=== PATIENT | female | born 1990 | race Caucasian/White ===

== ENCOUNTER 2016-03-30 18:37 | Emergency (ER) | payer OTHER ==
[2016-03-30 19:03] VITALS: RESP 16
--- NOTE | 2016-03-30 19:25 | XR ---
EXAMINATION TYPE: XR hand complete LT DATE OF EXAM: 03/30/2016 7:19 PM COMPARISON: NONE HISTORY: Pain, laceration wrist TECHNIQUE: 3 views left hand FINDINGS: No acute osseous abnormality is evident. Soft tissues appear normal. No radiopaque foreign bodies are evident. IMPRESSION: 1. Normal left hand
--- NOTE | 2016-03-30 20:34 | ED ---
Wound/Laceration HPI - General Chief Complaint: Wound/Laceration Stated Complaint: wrist lac Time Seen by Provider: 03/30/16 19:05 Source: patient Mode of arrival: ambulatory - History of Present Illness Initial Comments: Patient is a 25-year-old white right-handed female presenting to the emergency department with complaints of accidental left wrist laceration. Onset of injury at 5:30 PM this afternoon. Patient states she was cutting a ziptie at home with the knife slipped. Patient is currently complaining of numbness and tingling to left hand. Patient states she is up-to-date on tetanus immunization. Associated Symptoms: loss of feeling/numbness - Related Data Home Medications Medication Instructions Recorded Confirmed Pnv with Ca,No.72/Iron/FA 1 each PO DAILY 06/01/15 07/12/15 [ Plus Tablet] Previous Rx's Medication Instructions Recorded Ibuprofen [Motrin] 600 mg PO Q6HR PRN #30 tab 07/13/15 Azithromycin [Zithromax Z-pack] 0 mg PO DIRECTED #6 tab 03/30/16 Allergies Allergy/AdvReac Type Severity Reaction Status Date / Time Penicillins Allergy lip Verified 03/30/16 19:03 swelling Sulfa (Sulfonamide Allergy Rash/Hives Verified 03/30/16 19:03 Antibiotics) Review of Systems ROS Statement: Those systems with pertinent positive or pertinent negative responses have been documented in the HPI. ROS Other: All systems not noted in ROS Statement are negative. Past Medical History Past Medical History: GERD/Reflux Additional Past Medical History / Comment(s): current sinus infection,recent blood in stools, bloating, nausea @times, change in bowel habits History of Any Multi-Drug Resistant Organisms: None Reported Past Surgical History: No Surgical Hx Reported Additional Past Surgical History / Comment(s): wisdom teeth removed Past Anesthesia/Blood Transfusion Reactions: No Reported Reaction Past Psychological History: No Psychological Hx Reported Smoking Status: Never smoker Past Alcohol Use History: Rare Past Drug Use History: None Reported - Past Family History Father History Unknown: Yes Family Medical History: Coronary Artery Disease (CAD) Additional Family Medical History / Comment(s): Heartdisease General Exam - General Exam Comments Initial Comments: GENERAL: Pt awake and alert, well-appearing, well-nourished, and in no acute distress. HEAD: Atraumatic, normocephalic. EYES: Pupils equal, round, and reactive to light, extraocular movements intact, sclera anicteric, conjunctiva are normal. ENT: Moist mucous membranes. LUNGS: Breath sounds clear to auscultation bilaterally. No wheezes, rales, or rhonchi. HEART: Heart S1, S2, no S3 or S4. Regular rate and rhythm. No murmurs, rubs or gallops. ABDOMEN: Soft, nontender, nondistended, normoactive bowel sounds. No guarding, no rebound. No masses or organomegaly appreciated. NEUROLOGICAL: Pt oriented x 3. PSYCH: Normal mood, normal affect. SKIN: Warm, dry, intact. Left Hand Wrist exam: Present: laceration (2 cm laceration to left medial wrist) Neuro motor exam: Present: wrist extension intact, thumb opposition intact, thumb IP flexion intact, thumb adduction intact, fingers 2-5 abduction intact Neurosensory exam: Present: 2-point discrimination, radial nerve intact, ulnar nerve intact, median nerve intact Vascular: Present: normal capillary refill, radial pulse, brachial pulse, ulnar pulse. Absent: vascular compromise (When examining wound, patient started bleeding with possibly small arterial bleed. Hemostasis obtained with manual pressure. Dr. Osman at bedside to examine wound and agrees to closure of wound with sutures at this time with possible follow-up in outpatient setting with vascular surgery.), Pallo, pulse deficit radial art, pulse deficit ulnar art, pulse deficit brachial art Course Vital Signs 03/30/16 03/30/16 19:00 20:35 Temperature 98.8 F 98.4 F Pulse Rate 80 72 Respiratory 16 16 Rate Blood Pressure 147/91 124/72 O2 Sat by Pulse 97 99 Oximetry Procedures - Laceration Laceration #1 Consent Obtained: verbal consent Indication: laceration Site: other (Left medial wrist) Size (cm): 2 Description: linear, clean Depth: simple, single layer Anesthetic Used: lidocaine 1% Anesthesia Technique: local infiltration Amount (mls): 2 Pre-repair: wound explored, irrigated extensively, deep structures intact Type of Sutures: nylon Size of Sutures: 5-0 Number of Sutures: 3 Technique: simple, interrupted Patient Tolerated Procedure: well, no complications Medical Decision Making - Medical Decision Making Laceration to left medial wrist with possible small arterial laceration. Laceration repaired. Patient tolerated procedure well. Patient instructed to follow-up with vascular surgery as directed. Patient agrees with treatment plan. Discharge instructions and return parameters reviewed. - Radiology Data Radiology results: report reviewed Left hand x-ray: No acute osseous abnormality is evident. Soft tissues appear normal. No radiopaque foreign bodies evident. Disposition Clinical Impression: Laceration of wrist, left, complicated Disposition: HOME SELF-CARE Condition: Good Instructions: Care For Your Stitches (ED), Laceration (ED) Additional Instructions: Keep wound dry for 24 hours, generally clean the edges of the wound daily with a cotton swab saturated with proximal side to move crusts, return immediately if signs of infection such as redness or red streaks, increased pain, swelling, or fevers. Finish prescribed antibiotics. Follow-up with vascular surgery as needed. Please return to the emergency department with increased numbness, swelling, pain, or other worsening symptoms. Prescriptions: Azithromycin [Zithromax Z-pack] 0 mg PO DIRECTED #6 tab Referrals: None,Stated [Primary Care Provider] - 1-2 days Ruddy Dykes MD [STAFF PHYSICIAN] - 1-2 days Time of Disposition: 20:33
[2016-03-30 20:35] VITALS: BP 124/72; PULSE 72; TEMP 98.4
[2016-03-30] MEDS ORDERED: IBUPROFEN 800 MG TAB PO STA (20:35)
== END 2016-03-30 20:42 | disposition home or self-care (01) ==
LOC: EC 18:37
DX: S61.512A Laceration without foreign body of left wrist, initial encounter (principal); Z88.0 Allergy status to penicillin; Z88.2 Allergy status to sulfonamides; W26.0XXA Contact with knife, initial encounter; Y93.89 Activity, other specified; Y92.009 Unspecified place in unspecified non-institutional (private) residence as the place of occurrence of the external cause
CPT/HCPCS: 12001; 99283

== ENCOUNTER → 2016-06-17 | Outpatient (CLI) | payer OTHER | END | disposition home or self-care (01) | LOC: LABWHC1 10:49 | PROVIDERS: ATTEND Obstetrics & Gynecology | DX: Z34.80 Encounter for supervision of other normal pregnancy, unspecified trimester (principal); Z3A.00 Weeks of gestation of pregnancy not specified | CPT/HCPCS: 36415; 84702 ==

== ENCOUNTER 2016-06-18 06:09 | Emergency (ER) | payer OTHER ==
[2016-06-18 07:18] LABS: Basophils # (A) 0.1 k/uL (0-0.2); Basophils % (A) 1 %; CHCM 34.2; Eosinophils # (A) 0.1 k/uL (0-0.7); Eosinophils % (A) 1 %; HDW 2.63; HGB 13.6 gm/dL (11.4-16.0); Luc # (Auto) 0.11; Luc % (Auto) 1; Lymphocytes # (A) 1.5 k/uL (1.0-4.8); Lymphocytes % (A) 18 %; MCH 30.2 pg (25.0-35.0); MCHC 33.2 g/dL (31.0-37.0); MCV 90.9 fL (80.0-100.0); Mean Platelet Volume 7.1; Monocytes # (A) 0.4 k/uL (0-1.0); Monocytes % (A) 5 %; Neutrophils # (A) 6.1 k/uL (1.3-7.7); Neutrophils % (A) 74 %; RBC 4.51 m/uL (3.80-5.40); WBC 8.2 k/uL (3.8-10.6); WBC (Perox) 8.18
[2016-06-18 07:28] LABS: ALT 29 U/L (9-52); AST 19 U/L (14-36); Alkaline Phosphatase 55 U/L (38-126); Anion Gap 13 mmol/L; Blood Urea Nitrogen 12 mg/dL (7-17); Calcium 8.7 mg/dL (8.4-10.2); Carbon Dioxide 22 mmol/L (22-30); Chloride 107 mmol/L (98-107); Glucose 94 mg/dL (74-99); Non-African American GFR(MDRD) >60 (>60 ml/min/1.73 sqM); Potassium 4.1 mmol/L (3.5-5.1); Sodium 142 mmol/L (137-145); Total Bilirubin 0.5 mg/dL (0.2-1.3); Total Protein 7.3 g/dL (6.3-8.2)
[2016-06-18 07:38] VITALS: RESP 18
[2016-06-18 07:44] LABS: HCG,Quantitative Serum 995.3 mIU/mL
--- NOTE | 2016-06-18 07:50 | ED ---
General Adult HPI - General Chief complaint: Vaginal Bleeding Stated complaint: bleeding-7 weeks preg Time Seen by Provider: 06/18/16 07:00 Source: patient, RN notes reviewed Mode of arrival: ambulatory Limitations: no limitations - History of Present Illness Initial comments: This is a 25-year-old female presents to the emergency department stating that she is 7 weeks . Patient states she came in today because she's had vaginal bleeding for the last day. Patient states it got heavier today and she' s had some cramping. Patient states she has not had an ultrasound at this point. Patient denies any significant abdominal pain. Patient denies being lightheaded or dizzy. Patient states she has been once before had one child. Patient did have blood work done yesterday for a beta hCG. Patient denies any recent fever chills patient denies any vomiting or diarrhea. - Related Data Home Medications Medication Instructions Recorded Confirmed Pnv with Ca,No.72/Iron/FA 1 tab PO DAILY 06/01/15 06/18/16 [ Plus Tablet] Allergies Allergy/AdvReac Type Severity Reaction Status Date / Time Penicillins Allergy lip Verified 06/18/16 07:20 swelling Sulfa (Sulfonamide Allergy Rash/Hives Verified 06/18/16 07:20 Antibiotics) Review of Systems ROS Statement: Those systems with pertinent positive or pertinent negative responses have been documented in the HPI. ROS Other: All systems not noted in ROS Statement are negative. Past Medical History Past Medical History: GERD/Reflux Additional Past Medical History / Comment(s): current sinus infection,recent blood in stools, bloating, nausea @times, change in bowel habits History of Any Multi-Drug Resistant Organisms: None Reported Past Surgical History: No Surgical Hx Reported Additional Past Surgical History / Comment(s): wisdom teeth removed Past Anesthesia/Blood Transfusion Reactions: No Reported Reaction Past Psychological History: No Psychological Hx Reported Smoking Status: Never smoker Past Alcohol Use History: Rare Past Drug Use History: None Reported - Past Family History Father History Unknown: Yes Family Medical History: Coronary Artery Disease (CAD) Additional Family Medical History / Comment(s): Heartdisease General Exam - General Exam Comments Initial Comments: GENERAL: Patient is well-developed and well-nourished. Patient is nontoxic and well- hydrated and is in mild distress. ENT: Neck is soft and supple. No significant lymphadenopathy is noted. Oropharynx is clear. Moist mucous membranes. EYES: The sclera were anicteric and conjunctiva were pink and moist. PULMONARY: Unlabored respirations. Good breath sounds bilaterally. No audible rales rhonchi or wheezing was noted. CARDIOVASCULAR: There is a regular rate and rhythm without any murmurs gallops or rubs. ABDOMEN: Soft and nontender with normal bowel sounds. No palpable organomegaly was noted. There is no palpable pulsatile mass. SKIN: Skin is clear with no lesions or rashes and otherwise unremarkable. NEUROLOGIC: Patient is alert and oriented x3. Cranial nerves II through XII are grossly intact MUSCULOSKELETAL: Normal extremities with adequate strength and full range of motion. LYMPHATICS: No significant lymphadenopathy is noted PSYCHIATRIC: Normal psychiatric evaluation. Limitations: no limitations Course Vital Signs 06/18/16 06:15 Temperature 98.4 F Pulse Rate 97 Respiratory 18 Rate Blood Pressure 130/100 O2 Sat by Pulse 97 Oximetry Medical Decision Making - Medical Decision Making I did a pelvic exam was bleeding in the vaginal vault and there was some clots mixed in with a blood. The cervical os did appear to be closed. Ultrasound did not show an IUP and the beta hCG decline since yesterday. - Lab Data Result diagrams: 06/18/16 06:43 06/18/16 06:43 Lab Results 06/18/16 06/18/16 06/18/16 Range/Units 06:43 06:43 06:43 WBC 8.2 (3.8-10.6) k/uL RBC 4.51 (3.80-5.40) m/uL Hgb 13.6 (11.4-16.0) gm/dL Hct 41.0 (34.0-46.0) % MCV 90.9 (80.0-100.0) fL MCH 30.2 (25.0-35.0) pg MCHC 33.2 (31.0-37.0) g/dL RDW 13.0 (11.5-15.5) % Plt Count 230 (150-450) k/uL Neutrophils % 74 % Lymphocytes % 18 % Monocytes % 5 % Eosinophils % 1 % Basophils % 1 % Neutrophils # 6.1 (1.3-7.7) k/uL Lymphocytes # 1.5 (1.0-4.8) k/uL Monocytes # 0.4 (0-1.0) k/uL Eosinophils # 0.1 (0-0.7) k/uL Basophils # 0.1 (0-0.2) k/uL Sodium 142 (137-145) mmol/L Potassium 4.1 (3.5-5.1) mmol/L Chloride 107 (98-107) mmol/L Carbon Dioxide 22 (22-30) mmol/L Anion Gap 13 mmol/L BUN 12 (7-17) mg/dL Creatinine 0.52 (0.52-1.04) mg/dL Est GFR (MDRD) Af Amer >60 (>60 ml/min/1.73 sqM) Est GFR (MDRD) Non-Af >60 (>60 ml/min/1.73 sqM) Glucose 94 (74-99) mg/dL Calcium 8.7 (8.4-10.2) mg/dL Total Bilirubin 0.5 (0.2-1.3) mg/dL AST 19 (14-36) U/L ALT 29 (9-52) U/L Alkaline Phosphatase 55 (38-126) U/L Total Protein 7.3 (6.3-8.2) g/dL Albumin 4.0 (3.5-5.0) g/dL HCG, Quant 995.3 mIU/mL Blood Type B Positive Blood Type Recheck No Antibody Screen NEGATIVE Spec Expiration Date 06/21/2016 - 2343 Disposition Clinical Impression: Spontaneous miscarriage Disposition: HOME SELF-CARE Condition: Good Instructions: Miscarriage (ED) Additional Instructions: Patient should follow-up with her [employer]. Referrals: Tre Mccray MD [Primary Care Provider] - 1-2 days Time of Disposition: 09:57
--- NOTE | 2016-06-18 09:49 | US ---
EXAMINATION TYPE: US OB <=14 wks transvag DATE OF EXAM: 06/18/2016 9:12 AM COMPARISON: NONE CLINICAL HISTORY: Pain. spotting x 1 day, pt states passing clots, cramping EXAM PERFORMED: Transvaginal (TV) and Transabdominal (TA) EXAM MEASUREMENTS: GESTATIONAL AGE / DATING Dates by LMP: (7 weeks/5 days) EDC: 01/30/2017 Dates by Current Scan for: No IUP seen at this time MATERNAL ANATOMY Uterus: 7.9 x 5.4 x 5.0 cm Right Ovary: 3.3 x 2.0 x 2.2 cm Left Ovary: 3.1 x 1.8 x 1.6 cm Post CDS / Adnexa: free fluid seen in posterior cul de sac and adjacent to RO Presence of corpus luteal cyst: Echogenic lesion with ring of fire seen =1.2 x 1.3 x 1.4 cm GESTATION / SURVEY CRL: No IUP seen MSD: No gestational sac seen IUP: No IUP seen at this time Date of LMP: 05/05/2016 Beta HcG (if available): not available No IUP seen at this time. Anechoic lesion seen in cervical canal = 0.8 x 0.9 x 0.3 cm. Anechoic les ion seen in mid/right uterine fundus = 0.8 x 0.7 x 0.6 cm. Grayscale, color Doppler imaging performed, endovaginal scanning performed for better evaluation of t he uterus. Color flow noted to the ovaries. Endometrial stripe thickness 2.5 cm on endovaginal vagina l scanning. Fluid is noted in the pelvis. IMPRESSION: Endometrial stripe thickness is abnormally thickened, correlate for appropriate phase of patient's fo llicular cycle. Findings may represent spontaneous , correlate. Indeterminate cystic focus wi thin the uterus is indeterminate. Consider follow-up.
[2016-06-18 10:05] VITALS: BP 134/75; PULSE 85; TEMP 98.2
== END 2016-06-18 10:05 | disposition home or self-care (01) ==
LOC: EC 06:09
DX: O03.9 Complete or unspecified spontaneous abortion without complication (principal); Z3A.01 Less than 8 weeks gestation of pregnancy; Z79.899 Other long term (current) drug therapy; Z88.0 Allergy status to penicillin; Z88.2 Allergy status to sulfonamides
CPT/HCPCS: 36415; 76801; 76817; 80053; 84702; 85025; 86850; 86900; 86901; 99284

== ENCOUNTER → 2016-06-24 | Outpatient (CLI) | payer OTHER | LOC: LABWHC1 15:01 | PROVIDERS: ATTEND Obstetrics & Gynecology | DX: Z34.90 Encounter for supervision of normal pregnancy, unspecified, unspecified trimester (principal); Z3A.00 Weeks of gestation of pregnancy not specified | CPT/HCPCS: 36415; 84702 ==

== ENCOUNTER → 2016-07-01 | Outpatient (CLI) | payer OTHER | LOC: LABWHC1 16:15 | PROVIDERS: ATTEND Obstetrics & Gynecology | DX: Z34.90 Encounter for supervision of normal pregnancy, unspecified, unspecified trimester (principal); Z3A.00 Weeks of gestation of pregnancy not specified | CPT/HCPCS: 36415; 84702 ==

== ENCOUNTER → 2016-11-27 | Outpatient (CLI) | payer OTHER ==
[2016-11-27 14:44] LABS: CH 30.2; CHCM 34.8; HCT 37.2 % (34.0-46.0); HDW 2.75; HGB 12.9 gm/dL (11.4-16.0); MCH 30.2 pg (25.0-35.0); MCHC 34.7 g/dL (31.0-37.0); MCV 87.2 fL (80.0-100.0); RBC 4.26 m/uL (3.80-5.40); RDW 12.4 % (11.5-15.5); WBC 8.6 k/uL (3.8-10.6)
[2016-11-27 14:52] LABS: Glucose 83 mg/dL (74-99); Non-African American GFR(MDRD) >60 (>60 ml/min/1.73 sqM)
[2016-11-27 15:23] LABS: Hepatitis B Surface Ag Index 0.06
[2016-11-27 20:02] LABS: Treponemal Ab Non-Reactive (Non-Reactive)
[2016-11-28 04:15] LABS: Toxoplasma Antibody (IgG) <3.0 IU/mL (<7.2)
== END | disposition home or self-care (01) ==
LOC: LABWHC1 14:11
PROVIDERS: ATTEND Obstetrics & Gynecology
DX: O26.811 Pregnancy related exhaustion and fatigue, first trimester (principal); Z3A.00 Weeks of gestation of pregnancy not specified
CPT/HCPCS: 36415; 82565; 82947; 85027; 86762; 86777; 86778; 86780; 86850; 86900; 86901; 87340; 87390

== ENCOUNTER 2017-05-01 10:18 | Outpatient (CLI) | payer OTHER ==
[2017-05-01 11:01] VITALS: BP 121/75; PULSE 90; RESP 18; TEMP 98
--- NOTE | 2017-05-05 18:33 | P.MSEPDOC ---
Presenting Problems - Arrival Data Date of Arrival on Unit: 05/01/17 Time of Arrival on Unit: 10:20 Mode of Transport: Ambulatory - Complaint OB-Reason for Admission/Chief Complaint: Other Comment: r/o pih. came in with headache-" fuzziness of head" Medical History - Information : 3 Para: 1 Term: 1 : 0 Abortions: Spontaneous or Elective: 1 Number of Living Children: 1 - Gestational Age Gestational Age by WES (wks/days): 29 Weeks and 5 Days - History Complications: GDM Comment: diet controlled Review of Systems - Review of Systems Constitutional: No problems Breast: No problems ENT: No problems Cardiovascular: No problems Respiratory: No problems Gastrointestinal: No problems Genitourinary: No problems Musculoskeletal: No problems Neurological: No problems Skin: No problems Vital Signs - Temperature Temperature: 98.0 F Temperature Source: Oral - Pulse Right Brachial Pulse Rate: 90 Pulse Assessment Method: Automatic Cuff - Respirations Respiratory Rate: 18 Oxygen Delivery Method: Room Air O2 Sat by Pulse Oximetry: 98 - Blood Pressure Right Arm Blood Pressure: 121/75 Blood Pressure Mean: 90 Blood Pressure Source: Automatic Cuff Medical Screen Scoring (Pre) - Cervical Exam Dilation: Exam Deferred Effacement: Exam Deferred Membranes: Intact - Uterine Contractions Frequency: N/A Duration: N/A Intensity: N/A - Maternal Vital Signs Maternal Temperature: N/A Maternal Blood Pressure: N/A Signs of Preeclampsia: Headache = 1 Maternal Respirations: N/A - Pain Assessment Pain Location and Character: Head Pain Scale Used: Numeric (1 - 10) Pain Intensity: 7 Pain Description: *Acute Pain Frequency: Intermittent Pain Duration: 2 Pain Duration Units: Hours Pain Behavior: None Exhibited, Vocalization Pain Aggravating Factors: None Non-Pharmacological Interventions: Darkened Room - Maternal Trauma Maternal Trauma: N/A - Assessment Baseline FHR: 140 Heart Rate - NICHD Category: Category I (Normal) = 0 NST: Reactive Position: N/A Station: N/A - Total Score Total Score (Pre): 1 - Level of Risk Level of Risk: Low (0-5) Physician Notification (Pre) - Physician Notified Physician/Practitioner Notifed:: yes Spoke With: tiffanie Jackson Order Received: Yes - Notification Comment Comment: discharge home Medical Screen Scoring (Post) - Cervical Exam Dilation: Exam Deferred Effacement: Exam Deferred Membranes: Intact - Uterine Contractions Frequency: N/A Duration: N/A Intensity: N/A - Maternal Vital Signs Maternal Temperature: N/A Signs of Preeclampsia: Headache = 1 Maternal Respirations: N/A - Pain Assessment Pain Scale Used: Numeric (1 - 10) Pain Intensity: 5 Pain Description: *Acute - Maternal Trauma Maternal Trauma: N/A - Assessment Heart Rate: 140 Heart Rate - NICHD Category: Category I (Normal) = 0 Position: N/A Station: N/A - Total Score Total Score (Post): 1 - Post Treatment Level of Risk Post Treatment Level of Risk: Low (0-5) Physician Notification (Post) - Physician Notified Physician Notified Date: 05/01/17 Physician Notified Time: 11:40 Physician/Practitioner Notified:: tiffanie Jackson Order Received: Yes - Notification Comment Comment: discharge home. to keep sched appt on 05/13 Disposition - Disposition OB Disposition: Discharge to home Discharge Date: 05/01/17 Discharge Time: 11:40 I agree with the RN Medical Screening Exam: Yes Risk & Benefit of care provided described in d/c instruction: Yes Diagnosis: DIZZINESS AND GIDDINESS
== END 2017-05-01 11:45 | disposition home or self-care (01) ==
LOC: FBPOP 10:18
PROVIDERS: ATTEND Obstetrics & Gynecology
DX: O99.89 Other specified diseases and conditions complicating pregnancy, childbirth and the puerperium (principal); R42 Dizziness and giddiness; Z3A.29 29 weeks gestation of pregnancy
CPT/HCPCS: 59025; 99213

== ENCOUNTER 2017-05-19 15:25 | Outpatient (CLI) | payer OTHER ==
[2017-05-19] MEDS ORDERED: LACTATED RINGERS 1,000 ML IV SCH (16:00)
[2017-05-19 16:14] LABS: Appearance,Urine Clear (Clear); Bilirubin,Urine Negative (Negative); Blood,Urine Negative (Negative); Color,Urine Yellow; Glucose,Urine (UA) Negative (Negative); Ketones,Urine Negative (Negative); Leukocyte Esterase,Urine Small (Negative); Mucus,Urine Occasional /hpf; Nitrite,Urine Negative (Negative); Protein,Urine Trace (Negative); RBC,Urine <1 /hpf (0-5); Specific Gravity,Urine 1.026 (1.001-1.035); Squamous Epithelial Cell,Urine 2 /hpf (0-4); WBC,Urine 3 /hpf (0-5)
[2017-05-19 17:55] VITALS: BP 119/74; PULSE 116; RESP 18; TEMP 98.4
--- NOTE | 2017-05-21 17:10 | P.MSEPDOC ---
Presenting Problems - Arrival Data Date of Arrival on Unit: 05/19/17 Time of Arrival on Unit: 15:25 Mode of Transport: Ambulatory - Complaint OB-Reason for Admission/Chief Complaint: Rule Out SROM Comment: rule out SROM from 1999 last night Medical History - Information : 3 Para: 1 Term: 1 : 0 Abortions: Spontaneous or Elective: 1 Number of Living Children: 1 - Gestational Age Gestational Age by WES (wks/days): 32 Weeks and 2 Days - History Complications: GDM Review of Systems - Review of Systems Constitutional: No problems Breast: No problems ENT: No problems Cardiovascular: No problems Respiratory: No problems Gastrointestinal: No problems Genitourinary: No problems Musculoskeletal: No problems Neurological: No problems Skin: No problems Vital Signs - Temperature Temperature: 98.4 F Temperature Source: Temporal Artery Scan - Pulse Right Pulse Oximetery Pulse Rate: 116 Pulse Assessment Method: Pulse Oximetry - Respirations Respiratory Rate: 18 Oxygen Delivery Method: Room Air O2 Sat by Pulse Oximetry: 97 - Blood Pressure Right Arm Blood Pressure: 119/74 Blood Pressure Mean: 89 Blood Pressure Source: Automatic Cuff Medical Screen Scoring (Pre) - Cervical Exam Dilation: 1-3 cm = 1 Membranes: Intact - Uterine Contractions Frequency: < 36 weeks = 6 Duration: N/A Intensity: N/A - Maternal Vital Signs Maternal Temperature: N/A Maternal Blood Pressure: N/A Signs of Preeclampsia: N/A Maternal Respirations: N/A - Pain Assessment Pain Location and Character: Lower, Abdomen Pain Scale Used: Numeric (1 - 10) Pain Intensity: 3 Pain Management Goal: 3 Pain Description: Pressure Pain Radiation Location: none Pain Frequency: Constant Pain Duration: 1 Pain Duration Units: Days Pain Behavior: Vocalization Effects of Pain: none Pain Aggravating Factors: None - Maternal Trauma Maternal Trauma: N/A - Assessment Baseline FHR: 150 Heart Rate - NICHD Category: Category I (Normal) = 0 NST: Reactive Position: N/A Station: N/A - Total Score Total Score (Pre): 7 - Level of Risk Level of Risk: Medium (6-9) Physician Notification (Pre) - Physician Notified Physician Notified Date: 05/19/17 Physician Notified Time: 15:54 Physician/Practitioner Notifed:: Sarai Spoke With: Telephone New Order Received: Yes (IV hydration, send UA and monitor for next hour) Medical Screen Scoring (Post) - Cervical Exam Dilation: 1-3 cm = 1 Membranes: Intact - Uterine Contractions Frequency: > 5 minutes apart = 1 Duration: > 40 seconds = 2 Intensity: N/A - Maternal Vital Signs Maternal Temperature: N/A Maternal Blood Pressure: N/A Signs of Preeclampsia: N/A Maternal Respirations: N/A - Maternal Trauma Maternal Trauma: N/A - Assessment Heart Rate: 145 Heart Rate - NICHD Category: Category I (Normal) = 0 NST: Reactive Position: N/A Station: N/A - Total Score Total Score (Post): 4 - Post Treatment Level of Risk Post Treatment Level of Risk: Low (0-5) Physician Notification (Post) - Physician Notified Physician Notified Date: 05/19/17 Physician Notified Time: 17:20 Physician/Practitioner Notified:: Dr Moon Spoke With: Sarai New Order Received: Yes (discharge home) - Notification Comment Comment: pt was here for rule out ROM, amnisure negative, no leaking noted, found to be hugh and cervix dilated to 2.5, 50%, -3. IV hydration spaced out contractions, cervix the same after >1hour. Pt discharged home Disposition - Disposition OB Disposition: Discharge to home Discharge Date: 05/19/17 Discharge Time: 17:40 I agree with the RN Medical Screening Exam: Yes Risk & Benefit of care provided described in d/c instruction: Yes Diagnosis: RELATED CONDITIONS, UNSPECIFIED, THIRD TRIMESTER (r/o SROM)
== END 2017-05-19 17:40 | disposition home or self-care (01) ==
LOC: FBPOP 15:25
PROVIDERS: ATTEND Obstetrics & Gynecology
DX: O26.93 Pregnancy related conditions, unspecified, third trimester (principal); Z3A.32 32 weeks gestation of pregnancy
CPT/HCPCS: 59025; 81001; 84112; 96360; 99214

== ENCOUNTER 2017-06-27 08:12 | Inpatient (IN) | payer OTHER ==
[2017-06-27 09:20] VITALS: BMI 65.7
[2017-06-27] MEDS ORDERED: METHYLERGONOVINE 0.2 MG/ML 1 ML AMP IM PRN (09:24)
[2017-06-27] MEDS ORDERED: CARBOPROST TROMETHAMINE 250 MCG/ML 1 ML AMP IM PRN (09:24)
[2017-06-27] MEDS ORDERED: TERBUTALINE 1 MG/ML VIAL SQ PRN (09:24)
[2017-06-27] MEDS ORDERED: LIDOCAINE 1% (PF) 10 MG/ML (30 ML SDV) SQ PRN (09:24)
[2017-06-27] MEDS ORDERED: OXYTOCIN 10 UNIT/ML 1 ML VIAL IM PRN (09:24)
[2017-06-27 09:30] LABS: Glucose,Whole Blood 88 mg/dL (75-99)
[2017-06-27 09:53] LABS: Basophils % (A) 0 %; Eosinophils # (A) 0.1 k/uL (0-0.7); Eosinophils % (A) 1 %; HCT 36.3 % (34.0-46.0); HGB 12.5 gm/dL (11.4-16.0); Lymphocytes # (A) 1.3 k/uL (1.0-4.8); Lymphocytes % (A) 19 %; MCH 30.1 pg (25.0-35.0); MCHC 34.5 g/dL (31.0-37.0); MCV 87.1 fL (80.0-100.0); Mean Platelet Volume 7.3; Monocytes # (A) 0.3 k/uL (0-1.0); Monocytes % (A) 5 %; Neutrophils # (A) 4.9 k/uL (1.3-7.7); Neutrophils % (A) 72 %; Platelet Count 245 k/uL (150-450); RBC 4.16 m/uL (3.80-5.40); WBC 6.8 k/uL (3.8-10.6)
[2017-06-27 10:21] LABS: Glucose,Whole Blood 82 mg/dL (75-99)
[2017-06-27 11:55] LABS: Glucose,Whole Blood 74 mg/dL (75-99)
[2017-06-27] MEDS ORDERED: BUPIVACAINE (PF) 0.25% 30 ML VIAL ONE (12:10)
[2017-06-27] MEDS ORDERED: fentaNYL (PF) 50 MCG/ML 5 ML AMP ONE (12:10)
[2017-06-27] MEDS ORDERED: SODIUM CHLORIDE 0.9% 100 ML BAG ONE (12:10)
[2017-06-27] MEDS: LACTATED RINGERS 1,000 ML IV SCH ×2 (12:18→12:44)
[2017-06-27] MEDS: OXYTOCIN 20 UNITS/1000 ML NS 1,000 ML IV SCH (12:45)
--- NOTE | 2017-06-27 13:01 | P.HPOB ---
History of Present Illness H&P Date: 06/27/17 Chief Complaint: Labor 26-year-old presents at 37 weeks and 6 days in active labor. Her cervix is 4 cm dilated, 80% effaced, and -2 station. She is hugh every 2-3 minutes. heart tones 130-135 with moderate variability and reactive. She is gestational diabetic diet controlled, her blood sugar today is 88. Review of Systems All systems: negative Constitutional: Denies chills, Denies fever Eyes: denies blurred vision, denies pain Ears, nose, mouth and throat: Denies headache, Denies sore throat Cardiovascular: Denies chest pain, Denies shortness of breath Respiratory: Denies cough Gastrointestinal: Denies abdominal pain, Denies diarrhea, Denies nausea, Denies vomiting Genitourinary: Denies dysuria, Denies hematuria Musculoskeletal: Denies myalgias Integumentary: Denies pruritus, Denies rash Neurological: Denies numbness, Denies weakness Psychiatric: Denies anxiety, Denies depression Endocrine: Denies fatigue, Denies weight change Past Medical History Past Medical History: GERD/Reflux History of Any Multi-Drug Resistant Organisms: None Reported Past Surgical History: No Surgical Hx Reported Additional Past Surgical History / Comment(s): wisdom teeth removed Past Anesthesia/Blood Transfusion Reactions: No Reported Reaction Past Psychological History: No Psychological Hx Reported Smoking Status: Never smoker Past Alcohol Use History: Rare Past Drug Use History: None Reported - Past Family History Father History Unknown: Yes Family Medical History: Coronary Artery Disease (CAD) Additional Family Medical History / Comment(s): Heartdisease Medications and Allergies Home Medications Medication Instructions Recorded Confirmed Type Pnv,Calcium 72/Iron/Folic Acid 1 tab PO DAILY 05/31/06/27/17 History [ Plus Tablet] Acetaminophen [Tylenol Extra 500 mg PO DAILY PRN 05/01/17 06/27/17 History Strength] Allergies Allergy/AdvReac Type Severity Reaction Status Date / Time Penicillins Allergy lip Verified 06/27/17 08:25 swelling Sulfa (Sulfonamide Allergy Rash/Hives Verified 06/27/17 08:25 Antibiotics) Exam Osteopathic Statement: *. No significant issues noted on an osteopathic structural exam other than those noted in the History and Physical/Consult. - Vital Signs Vital signs: Vital Signs Temp Pulse Resp BP 06/27/17 09:14 98.3 F 121 H 16 115/77 06/27/17 08:26 98.3 F 121 H 16 115/77 Intake and Output 06/26/17 06/27/17 06/27/17 22:59 06:59 14:59 Other: Weight 163 kg Heart: Regular rate and rhythm Lungs: Clear to auscultation bilaterally Abdomen: Soft, nontender Extremities: Negative Homans sign Results Result Diagrams: 06/27/17 09:08 Abnormal Lab Results - Last 24 Hours (Table) 06/27/17 Range/Units 11:34 POC Glucose (mg/dL) 74 L (75-99) mg/dL Assessment and Plan (1) Gestational diabetes mellitus, class A1 Current Visit: Yes Status: Acute Code(s): O24.410 - GESTATIONAL DIABETES MELLITUS IN , DIET CONTROLLED SNOMED Code(s): 08005425 (2) Normal labor Current Visit: Yes Status: Acute Code(s): O80 - ENCOUNTER FOR FULL-TERM UNCOMPLICATED DELIVERY; Z37.9 - OUTCOME OF DELIVERY, UNSPECIFIED SNOMED Code(s ): 42996649 Plan: 1. Expectant management 2. Will monitor blood sugars 3. Anticipate normal vaginal delivery
[2017-06-27 15:10] LABS: Glucose,Whole Blood 72 mg/dL (75-99)
[2017-06-27] MEDS ORDERED: SIMETHICONE 80 MG CHEWABLE PO PRN (18:42)
[2017-06-27] MEDS ORDERED: HYDROCORTISONE 2.5% RECTAL CREAM 30 GM TUBE RECTAL PRN (18:42)
[2017-06-27] MEDS ORDERED: WITCH HAZEL 1 EACH MED..PAD TOPICAL PRN (18:42)
[2017-06-27] MEDS ORDERED: diphenhydrAMINE 25 MG CAP PO PRN (18:42)
[2017-06-27] MEDS ORDERED: diphenhydrAMINE 50 MG/ML 1 ML VIAL IVP PRN ×2 (18:42)
[2017-06-27] MEDS ORDERED: diphenhydrAMINE 50 MG CAP PO PRN (18:42)
[2017-06-27] MEDS ORDERED: LANOLIN CREAM 5 GM TUBE TOPICAL PRN (18:42)
[2017-06-27] MEDS ORDERED: ZOLPIDEM 5 MG TAB PO PRN (18:42)
[2017-06-27] MEDS ORDERED: BENZOCAINE/MENTHOL SPRAY 1 GM/SPRAY AEROSOL TOPICAL PRN (18:42)
[2017-06-27] MEDS ORDERED: ACETAMINOPHEN TAB 325 MG TAB PO PRN (18:42)
[2017-06-27] MEDS: SENNOSIDES-DOCUSATE SODIUM 1 EACH TAB PO SCH (19:47)
[2017-06-27] MEDS: IBUPROFEN 600 MG TAB PO PRN (21:02)
[2017-06-28] MEDS: OXYTOCIN 20 UNITS/1000 ML NS 1,000 ML IV SCH (00:50)
[2017-06-28] MEDS: IBUPROFEN 600 MG TAB PO PRN ×2 (04:41→09:12)
[2017-06-28] MEDS: SENNOSIDES-DOCUSATE SODIUM 1 EACH TAB PO SCH (09:11)
--- NOTE | 2017-06-28 10:49 | P.PROBDLV ---
Vaginal Delivery Note - . Vaginal Delivery Note: 26-year-old presented at 37 weeks and 6 days in active labor. Her cervix was 4/2 cm dilated, 80% effaced, -2 station. She was hugh every 2-3 minutes. heart tones 130-135 with moderate variability and reactive. Amniotomy was performed at 10:50 AM and clear fluid noted. When she was uncomfortable she did get an epidural. Her contractions spaced out to about every 6 minutes and Pitocin augmentation was started. Her cervix was completely dilated at 1625. She pushed, and delivered a viable female over intact perineum under epidural anesthesia at 1638. Head delivered OA, anterior shoulder delivered gentle downward traction followed by posterior shoulder and rest of body. Nose and mouth bulb suctioned, cord clamped and cut , infant placed on mother's abdomen. Apgars 9, 9, weight 7 lbs. 2 oz. Placenta delivered spontaneously, intact with three-vessel cord at 1639. Vagina , cervix, and perineum were inspected. No lacerations noted. Estimated blood loss 150 mL. Mother and baby in stable condition.
[2017-06-28 12:19] VITALS: RESP 16
[2017-06-28 17:21] VITALS: BP 119/70; PULSE 99; TEMP 98
--- NOTE | 2017-06-29 07:49 | P.MSEPDOC ---
Presenting Problems - Arrival Data Date of Arrival on Unit: 06/27/17 Time of Arrival on Unit: 08:12 Mode of Transport: Ambulatory - Complaint OB-Reason for Admission/Chief Complaint: Possible Onset of Labor Medical History - Information : 3 Para: 1 Term: 1 : 0 Abortions: Spontaneous or Elective: 1 Number of Living Children: 1 - Gestational Age Gestational Age by WES (wks/days): 37 Weeks and 6 Days - History Complications: GDM Review of Systems - Review of Systems Constitutional: No problems Breast: No problems ENT: No problems Cardiovascular: No problems Respiratory: No problems Gastrointestinal: No problems Genitourinary: No problems Musculoskeletal: No problems Neurological: No problems Skin: No problems Vital Signs - Temperature Temperature: 98 F Temperature Source: Oral - Pulse Right Brachial Pulse Rate: 99 Pulse Assessment Method: Automatic Cuff - Respirations Respiratory Rate: 16 Oxygen Delivery Method: Room Air - Blood Pressure Right Arm Blood Pressure: 119/70 Blood Pressure Mean: 86 Blood Pressure Source: Automatic Cuff Medical Screen Scoring (Pre) - Cervical Exam Dilation: 4-7 cm = 2 Membranes: Intact - Uterine Contractions Duration: > 40 seconds = 2 Intensity: N/A - Maternal Vital Signs Maternal Temperature: N/A Maternal Blood Pressure: N/A Signs of Preeclampsia: N/A Maternal Respirations: N/A - Pain Assessment Pain Location and Character: Back, Abdomen Pain Scale Used: Numeric (1 - 10) Pain Intensity: 7 Pain Management Goal: 10 Pain Description: *Acute Pain Frequency: Intermittent Pain Duration Units: Hours Pain Behavior: Vocalization - Maternal Trauma Maternal Trauma: N/A - Assessment Baseline FHR: 150 Heart Rate - NICHD Category: Category I (Normal) = 0 NST: Reactive Position: N/A Station: N/A - Total Score Total Score (Pre): 4 - Level of Risk Level of Risk: Low (0-5) Physician Notification (Pre) - Physician Notified Physician Notified Date: 06/27/17 Physician Notified Time: 08:30 Physician/Practitioner Notifed:: Jack Spoke With: Jack New Order Received: Yes Disposition - Disposition OB Disposition: Admit, LDRP Suite Transferred to:: st 7 Discharge Date: 06/28/17 Discharge Time: 18:50 I agree with the RN Medical Screening Exam: Yes Risk & Benefit of care provided described in d/c instruction: Yes Diagnosis: ENCOUNTER FOR FULL-TERM UNCOMPLICATED DELIVERY
== END 2017-06-28 18:50 | disposition home or self-care (01) | DRG 775 ==
LOC: FBPOP 08:12 → 4FBP 08:44
PROVIDERS: ADMIT Obstetrics & Gynecology; ATTEND Obstetrics & Gynecology
PROC: 10E0XZZ Delivery of Products of Conception, External Approach (ICD-10-PCS; principal; 2017-06-27)
PROC: 10907ZC Drainage of Amniotic Fluid, Therapeutic from Products of Conception, Via Natural or Artificial Opening (ICD-10-PCS; 2017-06-27)
PROC: 00HU33Z Insertion of Infusion Device into Spinal Canal, Percutaneous Approach (ICD-10-PCS; 2017-06-27)
PROC: 3E0R3NZ Introduction of Analgesics, Hypnotics, Sedatives into Spinal Canal, Percutaneous Approach (ICD-10-PCS; 2017-06-27)
DX: O24.420 Gestational diabetes mellitus in childbirth, diet controlled (principal); O99.62 Diseases of the digestive system complicating childbirth; K21.9 Gastro-esophageal reflux disease without esophagitis; Z37.0 Single live birth; Z3A.37 37 weeks gestation of pregnancy; Z82.49 Family history of ischemic heart disease and other diseases of the circulatory system; Z88.0 Allergy status to penicillin; Z88.2 Allergy status to sulfonamides
CPT/HCPCS: 59025; 85025; 88307; 99213

== ENCOUNTER 2018-03-10 05:04 | Emergency (ER) | payer OTHER ==
--- NOTE | 2018-03-10 05:52 | ED ---
Chest Pain HPI - General Chief Complaint: Chest Pain Stated Complaint: Chest pain Time Seen by Provider: 03/10/18 05:24 Source: patient Mode of arrival: ambulatory Limitations: no limitations - History of Present Illness Initial Comments: This is a 27-year-old female with no past medical history who presents here department for chest pain. She states that it woke her from sleep this evening. She describes as a sharp sensation in the middle of her chest. She states it's worse with coughing and deep breaths. She states that she has been sick recently with URI however has not had the pain until this evening. She did not take anything for it. She denied feel any significant shortness of breath. The pain does not radiate. She denies any lower extremity swelling. No history of PE or DVT. No recent travel or surgeries. She does not take control. No other acute complaints. - Related Data Home Medications Medication Instructions Recorded Confirmed Pnv,Calcium 72/Iron/Folic Acid 1 tab PO DAILY 06/01/15 06/27/17 [ Plus Tablet] Acetaminophen [Tylenol Extra 500 mg PO DAILY PRN 05/01/17 06/27/17 Strength] Previous Rx's Medication Instructions Recorded Ibuprofen [Motrin] 600 mg PO Q6HR PRN #30 tab 06/28/17 Benzonatate [Tessalon Perles] 100 mg PO TID PRN #12 capsule 03/10/18 Allergies Allergy/AdvReac Type Severity Reaction Status Date / Time Penicillins Allergy lip Verified 03/10/18 05:09 swelling Sulfa (Sulfonamide Allergy Rash/Hives Verified 03/10/18 05:09 Antibiotics) Review of Systems ROS Statement: Those systems with pertinent positive or pertinent negative responses have been documented in the HPI. ROS Other: All systems not noted in ROS Statement are negative. Past Medical History Past Medical History: GERD/Reflux Additional Past Medical History / Comment(s): current sinus infection,recent blood in stools, bloating, nausea @times, change in bowel habits History of Any Multi-Drug Resistant Organisms: None Reported Past Surgical History: No Surgical Hx Reported Additional Past Surgical History / Comment(s): wisdom teeth removed Past Anesthesia/Blood Transfusion Reactions: No Reported Reaction Past Psychological History: No Psychological Hx Reported Smoking Status: Never smoker Past Alcohol Use History: Rare Past Drug Use History: None Reported - Past Family History Father History Unknown: Yes Family Medical History: Coronary Artery Disease (CAD) Additional Family Medical History / Comment(s): Heartdisease General Exam - General Exam Comments Initial Comments: Constitutional: Awake alert Appears comfortable Head: Normocephalic atraumatic Eyes: no conjunctival injection No scleral icterus EOMI Neck: No JVD Supple Heart: Regular rate rhythm normal S1-S2 no murmurs Lungs: Clear to auscultation bilaterally No wheezing No rales Abdomen: Soft nondistended nontender Extremities: Non edematous DP pulses intact Radial pulses intact Neuro: A&Ox3 No focal neurologic deficits Psych: Appropriate mood and affect Limitations: no limitations Course Vital Signs 03/10/18 03/10/18 05:07 07:31 Temperature 98 F 98.7 F Pulse Rate 104 H 95 Respiratory 20 18 Rate Blood Pressure 133/96 122/81 O2 Sat by Pulse 99 96 Oximetry - Reevaluation(s) Reevaluation #1: 03/10/18 05:53 EKG showing normal sinus rhythm with a rate of 93. There is no one ST segment changes or T-wave inversion. QTC is 432. Other intervals normal. No ectopy Chest Pain MDM - MDM Is a 27-year-old female who came in for chest pain. Chest x-ray did not reveal any pneumonia. EKG was unremarkable. At this time I feel that the patient's symptoms are likely related to costochondritis however she is a monitor her symptoms closely and follow-up with her primary doctor for further workup. I told to take Motrin or Tylenol as needed for pain. She was also given Tessalon Perles for her cough. Otherwise symptomatic treatment for her URI. Return the emergency room she has worsening or changing symptoms. All questions answered. Disposition Clinical Impression: Chest wall pain, URI (upper respiratory infection) Disposition: HOME SELF-CARE Condition: Stable Instructions: Costochondritis (ED) Prescriptions: Benzonatate [Tessalon Perles] 100 mg PO TID PRN #12 capsule PRN Reason: Cough Is patient prescribed a controlled substance at d/c from ED?: No Referrals: Tre Mccary MD [Primary Care Provider] - 1-2 days
--- NOTE | 2018-03-10 06:33 | XR ---
EXAM: XR Chest, 2 Views. CLINICAL HISTORY: ITS.REASON XR Reason: Pain TECHNIQUE: Frontal and lateral views of the chest. COMPARISON: No relevant prior studies available. FINDINGS: Lungs: Unremarkable. No consolidation. Pleural spaces: Unremarkable. No pneumothorax. Heart: Unremarkable. No cardiomegaly. Mediastinum: Unremarkable. Bones: Unremarkable. No acute fracture. IMPRESSION: Normal chest.
[2018-03-10 07:38] VITALS: BP 122/81; PULSE 95; RESP 18; TEMP 98.7
== END 2018-03-10 07:35 | disposition home or self-care (01) ==
LOC: EC 05:04
DX: J06.9 Acute upper respiratory infection, unspecified (principal); R07.89 Other chest pain; Z88.0 Allergy status to penicillin; Z88.2 Allergy status to sulfonamides; Z82.49 Family history of ischemic heart disease and other diseases of the circulatory system
CPT/HCPCS: 71046; 93005; 99285

== ENCOUNTER 2019-06-25 14:02 | Outpatient (CLI) | payer OTHER ==
[2019-06-25 16:05] VITALS: BP 120/74; PULSE 111; RESP 16; TEMP 98.5
--- NOTE | 2019-06-26 08:49 | P.MSEPDOC ---
Presenting Problems - Arrival Data Date of Arrival on Unit: 06/25/19 Time of Arrival on Unit: 14:02 Mode of Transport: Ambulatory - Complaint OB-Reason for Admission/Chief Complaint: Decreased Movement, Other Comment: 3 yo jumped on her stomach Medical History - Information : 4 Para: 2 Term: 2 : 0 Abortions: Spontaneous or Elective: 1 Number of Living Children: 2 - Gestational Age Gestational Age by WES (wks/days): 30 Weeks and 0 Days - History Comment: pain in lower back , "cramping" 4 on pain scale Review of Systems - Review of Systems Constitutional: No problems Breast: No problems ENT: No problems Cardiovascular: No problems Respiratory: No problems Gastrointestinal: No problems Genitourinary: No problems Musculoskeletal: No problems Neurological: No problems Skin: No problems Vital Signs - Temperature Temperature: 98.5 F Temperature Source: Temporal Artery Scan - Pulse Right Radial Pulse Rate: 111 Pulse Assessment Method: Automatic Cuff - Respirations Respiratory Rate: 16 Oxygen Delivery Method: Room Air - Blood Pressure Right Arm Blood Pressure: 120/74 Blood Pressure Mean: 89 Blood Pressure Source: Automatic Cuff Medical Screen Scoring (Pre) - Cervical Exam Dilation: 0 cm = 0 Effacement: Exam Deferred Membranes: Intact - Uterine Contractions Frequency: N/A Duration: N/A Intensity: N/A - Maternal Vital Signs Maternal Temperature: N/A Signs of Preeclampsia: N/A Maternal Respirations: N/A - Maternal Trauma Maternal Trauma: N/A - Assessment - Baby A Baseline FHR: 145 Heart Rate - NICHD Category: Category I (Normal) = 0 NST: Reactive Position: N/A Station: N/A - Total Score - Baby A Total Score - Baby A: 0 - Total Score - Baby B Total Score - Baby B: 0 - Total Score - Baby C Total Score - Baby C: 0 - Level of Risk - Baby A Level of Risk - Baby A: Low (0-5) - Level of Risk - Baby B Level of Risk - Baby B: Low (0-5) - Level of Risk - Baby C Level of Risk - Baby C: Low (0-5) Physician Notification (Pre) - Physician Notified Physician Notified Date: 06/25/19 Physician Notified Time: 14:45 New Order Received: Yes (triage assessment) - Notification Comment Comment: vag exam closed, thick high. b pos blood type. to see dr in three weeks unless problems and to return sooner Disposition - Disposition OB Disposition: Observe, Triage, Discharge to home, Written follow up inst ructions reviewed Discharge Date: 06/25/19 Discharge Time: 15:45 I agree with the RN Medical Screening Exam: Yes Risk & Benefit of care provided described in d/c instruction: Yes Diagnosis: ACUTE PAIN DUE TO TRAUMA (Patient presents to triage with complaints of her 3-year-old child hitting her belly. Patient denies any vaginal bleeding. Patient's blood type is Rh+. Prolonged monitoring shows reassuring status without evidence of compromise. Patient is discharged home follow up in the office was scheduled return if she has any concerns.)
== END 2019-06-25 15:45 | disposition home or self-care (01) ==
LOC: FBPOP 14:02
PROVIDERS: ATTEND Obstetrics & Gynecology
DX: O99.89 Other specified diseases and conditions complicating pregnancy, childbirth and the puerperium (principal); G89.11 Acute pain due to trauma; Z3A.30 30 weeks gestation of pregnancy
CPT/HCPCS: 59025; 99213

== ENCOUNTER 2019-08-06 16:44 | Outpatient (CLI) | payer OTHER ==
[2019-08-06 18:51] VITALS: BP 121/75; PULSE 97; RESP 16; TEMP 97.8
--- NOTE | 2019-08-15 08:22 | P.MSEPDOC ---
Presenting Problems - Arrival Data Date of Arrival on Unit: 08/06/19 Time of Arrival on Unit: 16:45 Mode of Transport: Ambulatory - Complaint OB-Reason for Admission/Chief Complaint: Possible Onset of Labor, Vaginal Bleeding Comment: contx irreg. seeing spotting when wiping at home. here in the night with contx also. dilated 3cm last night 50 % effaced. now was my 3.5 50% posterior cervix high. Medical History - Information : 4 Para: 2 Term: 2 : 0 Abortions: Spontaneous or Elective: 0 Number of Living Children: 1 - Gestational Age Gestational Age by WES (wks/days): 36 Weeks and 0 Days Review of Systems - Review of Systems Constitutional: No problems Breast: No problems ENT: No problems Cardiovascular: No problems Respiratory: No problems Gastrointestinal: No problems Genitourinary: No problems Musculoskeletal: No problems Neurological: No problems Skin: No problems Vital Signs - Temperature Temperature: 97.8 F Temperature Source: Temporal Artery Scan - Pulse Right Radial Pulse Rate: 97 Pulse Assessment Method: Automatic Cuff - Respirations Respiratory Rate: 16 Oxygen Delivery Method: Room Air - Blood Pressure Right Arm Blood Pressure: 121/75 Blood Pressure Mean: 90 Blood Pressure Source: Automatic Cuff Medical Screen Scoring (Pre) - Cervical Exam Dilation: 1-3 cm = 1 Effacement: Exam Deferred Membranes: Intact - Uterine Contractions Frequency: > 5 minutes apart = 1 Duration: N/A Intensity: N/A - Maternal Vital Signs Maternal Temperature: N/A Maternal Blood Pressure: N/A Signs of Preeclampsia: N/A Maternal Respirations: N/A - Maternal Trauma Maternal Trauma: N/A - Assessment - Baby A Baseline FHR: 135 Heart Rate - NICHD Category: Category I (Normal) = 0 NST: Reactive Position: N/A Station: N/A - Total Score - Baby A Total Score - Baby A: 2 - Total Score - Baby B Total Score - Baby B: 2 - Total Score - Baby C Total Score - Baby C: 2 - Level of Risk - Baby A Level of Risk - Baby A: Low (0-5) - Level of Risk - Baby B Level of Risk - Baby B: Low (0-5) - Level of Risk - Baby C Level of Risk - Baby C: Low (0-5) Physician Notification (Pre) - Physician Notified Physician Notified Date: 08/06/19 Physician Notified Time: 18:00 New Order Received: Yes (may go home with out being rechecked/ or stay and be wacthed longer) - Notification Comment Comment: home with instructions to return if contx stronger. water brakes, and/or conserns. Disposition - Disposition OB Disposition: Discharge to home Discharge Date: 08/06/19 Discharge Time: 19:00 I agree with the RN Medical Screening Exam: Yes Risk & Benefit of care provided described in d/c instruction: Yes Diagnosis: FALSE LABOR BEFORE 37 COMPLETED WEEKS OF GEST, THIRD TRI
== END 2019-08-06 19:00 | disposition home or self-care (01) ==
LOC: FBPOP 16:44
PROVIDERS: ATTEND Obstetrics & Gynecology
DX: O47.03 False labor before 37 completed weeks of gestation, third trimester (principal); Z3A.36 36 weeks gestation of pregnancy
CPT/HCPCS: 59025; 99213

== ENCOUNTER → 2019-08-06 | Outpatient (CLI) | payer OTHER ==
[2019-08-06 01:15] VITALS: BP 111/70; PULSE 102; RESP 16; TEMP 97.8
--- NOTE | 2019-08-06 06:46 | P.MSEPDOC ---
Presenting Problems - Arrival Data Date of Arrival on Unit: 08/06/19 Time of Arrival on Unit: 01:00 Mode of Transport: Ambulatory - Complaint OB-Reason for Admission/Chief Complaint: Possible Onset of Labor Medical History - Information : 4 Para: 2 Term: 2 : 0 Abortions: Spontaneous or Elective: 1 Number of Living Children: 2 - Gestational Age Gestational Age by WES (wks/days): 36 Weeks and 0 Days - History Complications: GDM Review of Systems - Review of Systems Constitutional: No problems Breast: No problems ENT: No problems Cardiovascular: No problems Respiratory: No problems Gastrointestinal: No problems Genitourinary: No problems Musculoskeletal: No problems Neurological: No problems Skin: No problems Vital Signs - Temperature Temperature: 97.8 F Temperature Source: Temporal Artery Scan - Pulse Right Brachial Pulse Rate: 102 Pulse Assessment Method: Automatic Cuff - Respirations Respiratory Rate: 16 Oxygen Delivery Method: Room Air O2 Sat by Pulse Oximetry: 98 - Blood Pressure Right Arm Blood Pressure: 111/70 Blood Pressure Mean: 83 Blood Pressure Source: Automatic Cuff Medical Screen Scoring (Pre) - Cervical Exam Dilation: 1-3 cm = 1 Membranes: Intact - Uterine Contractions Frequency: > or = 36 weeks =2 Duration: > 40 seconds = 2 Intensity: N/A - Maternal Vital Signs Maternal Temperature: N/A Signs of Preeclampsia: N/A Maternal Respirations: N/A - Maternal Trauma Maternal Trauma: N/A - Assessment - Baby A Baseline FHR: 140 Heart Rate - NICHD Category: Category I (Normal) = 0 NST: Reactive Position: N/A Station: N/A - Total Score - Baby A Total Score - Baby A: 5 - Total Score - Baby B Total Score - Baby B: 5 - Total Score - Baby C Total Score - Baby C: 5 - Level of Risk - Baby A Level of Risk - Baby A: Low (0-5) - Level of Risk - Baby B Level of Risk - Baby B: Low (0-5) - Level of Risk - Baby C Level of Risk - Baby C: Low (0-5) Physician Notification (Pre) - Physician Notified Physician Notified Date: 08/06/19 Physician Notified Time: 03:30 New Order Received: No - Notification Comment Comment: Pt was given the option to go home at 0230 or stay for another hour and have cervix rechecked. Pt opted to stay. Cervical recheck without change. Dr. Brunner ordered to discharge home, drink plenty of fluid, monitor kick counts and return with any worsening symptoms or concerns. Discharge instructions reviewed thoroughly. Pt and SO verbalized understanding Disposition - Disposition OB Disposition: Discharge to home Discharge Date: 08/06/19 Discharge Time: 03:45 I agree with the RN Medical Screening Exam: Yes Risk & Benefit of care provided described in d/c instruction: Yes Diagnosis: FALSE LABOR BEFORE 37 COMPLETED WEEKS OF GEST, THIRD TRI (Patient presented to labor and delivery with complaints of contractions. Patient was seen in the office earlier today by Dr. Myers and was 2-3 cm dilated. Patient remains approximately 3 cm dilated. She was having initially regular contractions however no cervical change. I offered to continue to watch her for additional hour to which we did and again no cervical change. At this time it appears the contractions were spacing out and heart tones are category 1. Patient was felt to be stable for discharge home to the return if she has any increase in her contractions or concerns. At this time there is no evidence of active labor.)
== END | disposition home or self-care (01) ==
LOC: FBPOP 01:00
PROVIDERS: ATTEND Obstetrics & Gynecology
DX: O47.03 False labor before 37 completed weeks of gestation, third trimester (principal); Z3A.36 36 weeks gestation of pregnancy
CPT/HCPCS: 59025; 99213

== ENCOUNTER 2019-08-17 15:02 | Outpatient (CLI) | payer OTHER ==
[2019-08-17 15:38] LABS: Glucose,Whole Blood 116 mg/dL (75-99)
[2019-08-17 16:46] VITALS: BP 118/71; PULSE 103; RESP 16; TEMP 98.4
--- NOTE | 2019-08-18 08:44 | P.MSEPDOC ---
Presenting Problems - Arrival Data Date of Arrival on Unit: 08/17/19 Time of Arrival on Unit: 15:02 Mode of Transport: Ambulatory - Complaint OB-Reason for Admission/Chief Complaint: Rule Out SROM, Other Comment: contx Medical History - Information : 4 Para: 2 Term: 0 : 2 Abortions: Spontaneous or Elective: 1 Number of Living Children: 2 - Gestational Age Gestational Age by WES (wks/days): 37 Weeks and 4 Days - History Complications: GDM Review of Systems - Review of Systems Constitutional: No problems Breast: No problems ENT: No problems Cardiovascular: No problems Respiratory: No problems Gastrointestinal: No problems Genitourinary: No problems Musculoskeletal: No problems Neurological: No problems Skin: No problems Vital Signs - Temperature Temperature: 98.4 F Temperature Source: Oral - Pulse Brachial Pulse Rate: 103 Pulse Assessment Method: Automatic Cuff - Respirations Respiratory Rate: 16 Oxygen Delivery Method: Room Air O2 Sat by Pulse Oximetry: 98 - Blood Pressure Right Arm Sitting Blood Pressure: 118/71 Blood Pressure Mean: 86 Blood Pressure Source: Automatic Cuff Medical Screen Scoring (Pre) - Cervical Exam Dilation: 1-3 cm = 1 Membranes: Intact - Uterine Contractions Frequency: > 5 minutes apart = 1 Duration: N/A Intensity: N/A - Maternal Vital Signs Maternal Temperature: N/A Maternal Blood Pressure: N/A Signs of Preeclampsia: N/A Maternal Respirations: N/A - Total Score - Baby A Total Score - Baby A: 2 - Total Score - Baby B Total Score - Baby B: 2 - Total Score - Baby C Total Score - Baby C: 2 - Level of Risk - Baby A Level of Risk - Baby A: Low (0-5) - Level of Risk - Baby B Level of Risk - Baby B: Low (0-5) - Level of Risk - Baby C Level of Risk - Baby C: Low (0-5) Physician Notification (Pre) - Physician Notified Physician Notified Date: 08/17/19 Physician Notified Time: 16:24 New Order Received: Yes - Notification Comment Comment: pt here with c/o contx and possible srom. Amnisure is neg and no signs of active labor. Pt d/c'd home and has OB appt on 08/19/[address] Moon Disposition - Disposition OB Disposition: Triage, Discharge to home, Written follow up instructions reviewed Discharge Date: 08/17/19 Discharge Time: 16:30 I agree with the RN Medical Screening Exam: Yes Risk & Benefit of care provided described in d/c instruction: Yes Diagnosis: FALSE LABOR AT OR AFTER 37 COMPLETED WEEKS OF GESTATION
== END 2019-08-17 16:30 | disposition home or self-care (01) ==
LOC: FBPOP 15:02
PROVIDERS: ATTEND Obstetrics & Gynecology
DX: O47.1 False labor at or after 37 completed weeks of gestation (principal); Z3A.37 37 weeks gestation of pregnancy
CPT/HCPCS: 59025; 99213

== ENCOUNTER 2019-08-24 08:49 | Outpatient (CLI) | payer OTHER ==
[2019-08-24 10:23] LABS: Glucose,Whole Blood 89 mg/dL (75-99)
[2019-08-24 11:31] VITALS: BP 120/74; PULSE 97; RESP 18; TEMP 97.7
--- NOTE | 2019-08-30 08:54 | P.MSEPDOC ---
Presenting Problems - Arrival Data Date of Arrival on Unit: 08/24/19 Time of Arrival on Unit: 08:49 Mode of Transport: Ambulatory - Complaint OB-Reason for Admission/Chief Complaint: Possible Onset of Labor, Pain Comment: pt c/o contractions every 5-10 min that are getting stronger and more frequent, Medical History - Information : 4 Para: 2 Term: 2 : 0 Abortions: Spontaneous or Elective: 1 Number of Living Children: 2 - Gestational Age Gestational Age by WES (wks/days): 38 Weeks and 4 Days - History Complications: GDM Review of Systems - Review of Systems Constitutional: No problems Breast: No problems ENT: No problems Cardiovascular: No problems Respiratory: No problems Gastrointestinal: No problems Genitourinary: No problems Musculoskeletal: No problems Neurological: No problems Skin: No problems Vital Signs - Temperature Temperature: 97.7 F Temperature Source: Temporal Artery Scan - Pulse Right Brachial Pulse Rate: 97 Pulse Assessment Method: Automatic Cuff - Respirations Respiratory Rate: 18 Oxygen Delivery Method: Room Air - Blood Pressure Right Arm Blood Pressure: 120/74 Blood Pressure Mean: 89 Blood Pressure Source: Automatic Cuff Medical Screen Scoring (Pre) - Cervical Exam Dilation: 4-7 cm = 2 Effacement: More than 50% = 2 Membranes: Intact - Uterine Contractions Frequency: > 5 minutes apart = 1 Duration: > 40 seconds = 2 Intensity: N/A - Maternal Vital Signs Maternal Temperature: N/A Maternal Blood Pressure: N/A Signs of Preeclampsia: N/A Maternal Respirations: N/A - Maternal Trauma Maternal Trauma: N/A - Assessment - Baby A Baseline FHR: 145 Heart Rate - NICHD Category: Category I (Normal) = 0 NST: Reactive Position: N/A Station: N/A - Total Score - Baby A Total Score - Baby A: 7 - Total Score - Baby B Total Score - Baby B: 7 - Total Score - Baby C Total Score - Baby C: 7 - Level of Risk - Baby A Level of Risk - Baby A: Medium (6-9) - Level of Risk - Baby B Level of Risk - Baby B: Medium (6-9) - Level of Risk - Baby C Level of Risk - Baby C: Medium (6-9) Physician Notification (Pre) - Physician Notified Physician Notified Date: 08/24/19 Physician Notified Time: 09:34 New Order Received: Yes - Notification Comment Comment: recheck cervical exam in an hour and call with results Medical Screen Scoring (Post) - Cervical Exam Dilation: 4-7 cm = 2 Effacement: More than 50% = 2 Membranes: Intact - Uterine Contractions Frequency: > 5 minutes apart = 1 Duration: > 40 seconds = 2 Intensity: N/A - Maternal Vital Signs Maternal Temperature: N/A Maternal Blood Pressure: N/A Signs of Preeclampsia: N/A Maternal Respirations: N/A - Pain Assessment Pain Location and Character: Abdomen Pain Scale Used: Numeric (1 - 10) Pain Intensity: 8 Pain Management Goal: 4 Pain Description: *Acute, Cramping, Pressure Pain Frequency: Intermittent Pain Duration: 2 Pain Behavior: Vocalization Pain Aggravating Factors: Contractions - Maternal Trauma Maternal Trauma: N/A - Total Score Total Score - Baby A: 7 Total Score - Baby B: 7 Total Score - Baby C: 7 - Post Treatment Level of Risk Post Treatment Level of Risk - Baby A: Medium (6-9) Post Treatment Level of Risk - Baby B: Medium (6-9) Post Treatment Level of Risk - Baby C: Medium (6-9) Physician Notification (Post) - Physician Notified Physician Notified Date: 08/24/19 Physician Notified Time: 11:11 Physician/Practitioner Notified:: Jack Spoke With: Jack New Order Received: Yes - Notification Comment Comment: kept pt an extra hour and had cervical exams with no change, orders to follow up with Dr. Moon in office tomorrow at scheduled appt, Disposition - Disposition OB Disposition: Discharge to home, Written follow up instructions reviewed Discharge Date: 08/24/19 Discharge Time: 11:20 I agree with the RN Medical Screening Exam: Yes Risk & Benefit of care provided described in d/c instruction: Yes Diagnosis: FALSE LABOR AT OR AFTER 37 COMPLETED WEEKS OF GESTATION
== END 2019-08-24 11:20 | disposition home or self-care (01) ==
LOC: FBPOP 08:49
PROVIDERS: ATTEND Obstetrics & Gynecology
DX: O47.1 False labor at or after 37 completed weeks of gestation (principal); Z3A.38 38 weeks gestation of pregnancy
CPT/HCPCS: 59025; 99213

== ENCOUNTER 2019-08-30 06:15 | Inpatient (IN) | payer OTHER ==
[2019-08-30] MEDS ORDERED: OXYTOCIN 10 UNIT/ML 1 ML VIAL IM PRN (06:35)
[2019-08-30] MEDS ORDERED: TERBUTALINE 1 MG/ML VIAL SQ PRN (06:35)
[2019-08-30] MEDS ORDERED: METHYLERGONOVINE 0.2 MG/ML 1 ML AMP IM PRN (06:35)
[2019-08-30] MEDS ORDERED: LIDOCAINE 0.5% (PF) 5 MG/ML (50 ML SDV) SQ PRN (06:35)
[2019-08-30] MEDS ORDERED: CARBOPROST TROMETHAMINE 250 MCG/ML 1 ML AMP IM PRN (06:35)
[2019-08-30] MEDS ORDERED: OXYTOCIN 30 UNITS/500 ML NS 30 UNIT in SALINE 1 500ML.BAG IV SCH (06:45)
[2019-08-30 06:53] LABS: Glucose,Whole Blood 104 mg/dL (75-99)
[2019-08-30 06:55] LABS: Basophils % (A) 0 %; Eosinophils # (A) 0.1 k/uL (0-0.7); Eosinophils % (A) 2 %; HCT 35.2 % (34.0-46.0); HGB 12.1 gm/dL (11.4-16.0); Lymphocytes # (A) 1.6 k/uL (1.0-4.8); Lymphocytes % (A) 22 %; MCHC 34.3 g/dL (31.0-37.0); MCV 90.2 fL (80.0-100.0); Mean Platelet Volume 8.4; Monocytes # (A) 0.4 k/uL (0-1.0); Monocytes % (A) 5 %; Neutrophils # (A) 5.1 k/uL (1.3-7.7); Neutrophils % (A) 70 %; Platelet Count 237 k/uL (150-450); RDW 13.3 % (11.5-15.5); WBC 7.3 k/uL (3.8-10.6)
[2019-08-30] MEDS: LACTATED RINGERS 1,000 ML IV SCH (06:55)
[2019-08-30] MEDS ORDERED: ROPIVACAINE 100 MG, fentaNYL (PF) 200 MCG in SODIUM CHLORIDE 0.9% 76 ML EPIDURAL ONE (09:23)
--- NOTE | 2019-08-30 13:11 | P.HPOB ---
History of Present Illness H&P Date: 08/30/19 Chief Complaint: Intrauterine at term Lakshmi is a 28-year-old at 39 weeks gestation arise for induction of labor. Her Precis course has been, complicated by gestational diabetes for which she was on metformin. Her sugars remained well throughout the remainder the . She was followed with maternal medicine and did receive nonstress test by physical profiles through the latter part of the all of which were good. Today she is dilated to 4 cm 80% effaced and -2 station artificial rupture membranes was performed and clear fluid is noted. A category 1 tracing is also noted. No other issues or questions this morning. Plan is for an epidural for analgesia. Past Medical History Past Medical History: GERD/Reflux Additional Past Medical History / Comment(s): Gestational diabetes History of Any Multi-Drug Resistant Organisms: None Reported Past Surgical History: No Surgical Hx Reported Additional Past Surgical History / Comment(s): wisdom teeth removed Past Anesthesia/Blood Transfusion Reactions: No Reported Reaction Past Psychological History: No Psychological Hx Reported Smoking Status: Never smoker Past Alcohol Use History: Rare Past Drug Use History: None Reported - Past Family History Father History Unknown: Yes Family Medical History: Coronary Artery Disease (CAD) Additional Family Medical History / Comment(s): Heartdisease Medications and Allergies Home Medications Medication Instructions Recorded Confirmed Type Pnv,Calcium 72/Iron/Folic Acid 1 tab PO DAILY 06/01/15 08/30/19 History [ Plus Tablet] metFORMIN HCL 1 tab PO HS 08/06/19 08/30/19 History metFORMIN HCL 1 tab PO QAM 08/06/19 08/30/19 History Allergies Allergy/AdvReac Type Severity Reaction Status Date / Time Penicillins Allergy lip Verified 08/30/19 06:34 swelling Sulfa (Sulfonamide Allergy Rash/Hives Verified 08/30/19 06:34 Antibiotics) Exam Osteopathic Statement: *. No significant issues noted on an osteopathic structural exam other than those noted in the History and Physical/Consult. Vital Signs Temp Pulse Resp BP 08/30/19 06:59 96.9 F L 98 16 122/77 Intake and Output 08/29/19 08/30/19 08/30/19 22:59 06:59 14:59 Other: Weight 76.204 kg - OBG Physical Exam Breast: both: normal (no masses) Abdomen: bowel sounds normal, no diffuse tenderness, no bruit present, no guarding noted, no hepatomegaly, no splenomegaly, no mass Vulva: both: normal Vagina: normal moisture, no discharge Cervix: no lesion, no discharge Uterus: normal size, normal contour Adnexa: both: normal Anus/Rectum: normal perianal skin, no rectal mass, no hemorrhoids, heme negative Results Result Diagrams: 08/30/19 06:35 Abnormal Lab Results - Last 24 Hours (Table) 08/30/19 Range/Units 06:51 POC Glucose (mg/dL) 104 H (75-99) mg/dL
--- NOTE | 2019-08-30 13:12 | P.PROBDLV ---
Vaginal Delivery Note - . Vaginal Delivery Note: Lakshmi progressed to complete and pushing with spontaneous vaginal delivery of a viable male over an intact perineum. Falling deliver the head anterior posterior shoulders were easily delivered with gentle downward and upward traction followed by the remainder the baby. There was a nuchal cord 1 that the baby was delivered through. Once baby was delivered mouth nares were bulb suctioned and baby was placed on mother's abdomen, where the umbilical cord was allowed to pulsate for 45 seconds prior to clamping and cutting. Nursery personnel was present to assume care. Placenta was then delivered intact and Pitocin was added to the IV. scores were 9 and 9 at one and 5 minutes respectively and the weight is pending. Both mother and baby are stable following delivery.
[2019-08-30] MEDS ORDERED: diphenhydrAMINE 50 MG CAP PO PRN (13:37)
[2019-08-30] MEDS ORDERED: ZOLPIDEM 5 MG TAB PO PRN (13:37)
[2019-08-30] MEDS ORDERED: BENZOCAINE/MENTHOL SPRAY 1 GM/SPRAY AEROSOL TOPICAL PRN (13:37)
[2019-08-30] MEDS ORDERED: LANOLIN CREAM 5 GM TUBE TOPICAL PRN (13:37)
[2019-08-30] MEDS ORDERED: SIMETHICONE 80 MG CHEWABLE PO PRN (13:37)
[2019-08-30] MEDS ORDERED: diphenhydrAMINE 50 MG/ML 1 ML VIAL IVP PRN ×2 (13:37)
[2019-08-30] MEDS ORDERED: HYDROCORTISONE 2.5% RECTAL CREAM 30 GM TUBE RECTAL PRN (13:37)
[2019-08-30] MEDS ORDERED: diphenhydrAMINE 25 MG CAP PO PRN (13:37)
[2019-08-30] MEDS ORDERED: OXYTOCIN 20 UNITS/1000 ML NS 1,000 ML IV SCH (13:45)
[2019-08-30] MEDS: SENNOSIDES-DOCUSATE SODIUM 1 EACH TAB PO SCH (20:07)
[2019-08-30 20:35] VITALS: RESP 16
[2019-08-31] MEDS: IBUPROFEN 600 MG TAB PO PRN ×2 (00:34→07:51)
[2019-08-31] MEDS: ACETAMINOPHEN TAB 325 MG TAB PO PRN ×2 (04:38→11:46)
[2019-08-31 06:13] LABS: Basophils % (A) 0 %; Eosinophils # (A) 0.1 k/uL (0-0.7); Eosinophils % (A) 1 %; HCT 32.6 % (34.0-46.0); Lymphocytes # (A) 1.5 k/uL (1.0-4.8); Lymphocytes % (A) 17 %; MCH 30.9 pg (25.0-35.0); MCHC 33.6 g/dL (31.0-37.0); MCV 91.7 fL (80.0-100.0); Mean Platelet Volume 8.6; Monocytes # (A) 0.5 k/uL (0-1.0); Monocytes % (A) 6 %; Neutrophils # (A) 6.5 k/uL (1.3-7.7); Neutrophils % (A) 74 %; Platelet Count 185 k/uL (150-450); RBC 3.56 m/uL (3.80-5.40); RDW 13.3 % (11.5-15.5); WBC 8.8 k/uL (3.8-10.6)
[2019-08-31] MEDS: SENNOSIDES-DOCUSATE SODIUM 1 EACH TAB PO SCH (07:51)
[2019-08-31 08:34] VITALS: BP 110/67; PULSE 81; TEMP 98.1
[2019-08-31] MEDS: LACTATED RINGERS 1,000 ML IV SCH (08:35)
--- NOTE | 2019-08-31 09:11 | P.DS ---
Providers Date of admission: 08/30/19 06:21 Expected date of discharge: 08/31/19 Attending physician: Tani Moon Primary care physician: Stated None Hospital Course: Lakshmi is doing very well day 1. She is involuting, voiding and tolerating her diet. She had an uneventful vaginal delivery yesterday. Vital signs are stable and she is afebrile. Heart regular, lungs clear, extremities without pain. Abdomen soft and uterus is firm. Lochia is reported be light. Prescription for Motrin was for her to her pharmacy discharge instructions were thoroughly reviewed. All questions are answered for her and she is stable for discharge this time. Patient Condition at Discharge: Good Plan - Discharge Summary New Discharge Prescriptions: New Ibuprofen [Motrin] 600 mg PO Q6HR PRN #30 tab PRN Reason: Pain No Action Pnv,Calcium 72/Iron/Folic Acid [ Plus Tablet] 1 tab PO DAILY metFORMIN HCL 1 tab PO QAM metFORMIN HCL 1 tab PO HS Discharge Medication List Pnv,Calcium 72/Iron/Folic Acid [ Plus Tablet] 1 tab PO DAILY 06/01/15 [History] metFORMIN HCL 1 tab PO HS 08/06/19 [History] metFORMIN HCL 1 tab PO QAM 08/06/19 [History] Ibuprofen [Motrin] 600 mg PO Q6HR PRN #30 tab 08/31/19 [Rx] Follow up Appointment(s)/Referral(s): Tani Moon DO [Doctor of Osteopathic Medicine] - 6 Weeks Activity/Diet/Wound Care/Special Instructions: No heavy lifting, limit stairs and driving, and pelvic rest. If any high temperatures, heavy bleeding, or severe pain call my office Discharge Disposition: HOME SELF-CARE
== END 2019-08-31 14:35 | disposition home or self-care (01) | DRG 807 ==
LOC: 4FBP 06:21
PROVIDERS: ADMIT Obstetrics & Gynecology; ATTEND Obstetrics & Gynecology
PROC: 3E033VJ Introduction of Other Hormone into Peripheral Vein, Percutaneous Approach (ICD-10-PCS; principal; 2019-08-30)
PROC: 10E0XZZ Delivery of Products of Conception, External Approach (ICD-10-PCS; principal; 2019-08-30)
PROC: 10907ZC Drainage of Amniotic Fluid, Therapeutic from Products of Conception, Via Natural or Artificial Opening (ICD-10-PCS; principal; 2019-08-30)
PROC: 00HU33Z Insertion of Infusion Device into Spinal Canal, Percutaneous Approach (ICD-10-PCS; principal; 2019-08-30)
PROC: 3E0R3BZ Introduction of Anesthetic Agent into Spinal Canal, Percutaneous Approach (ICD-10-PCS; principal; 2019-08-30)
DX: O24.425 Gestational diabetes mellitus in childbirth, controlled by oral hypoglycemic drugs (principal); Z37.0 Single live birth; K21.9 Gastro-esophageal reflux disease without esophagitis; O99.62 Diseases of the digestive system complicating childbirth; O69.81X0 Labor and delivery complicated by cord around neck, without compression, not applicable or unspecified; Z3A.39 39 weeks gestation of pregnancy; Z79.84 Long term (current) use of oral hypoglycemic drugs; Z79.899 Other long term (current) drug therapy; Z98.890 Other specified postprocedural states; Z88.0 Allergy status to penicillin; Z88.2 Allergy status to sulfonamides; Z82.49 Family history of ischemic heart disease and other diseases of the circulatory system
CPT/HCPCS: 85025; 86850; 86900; 86901

== ENCOUNTER → 2019-12-03 | Day surgery (SDC) | payer OTHER ==
[2019-12-01 16:04] VITALS: BMI 26.5
--- NOTE | 2019-12-02 17:58 | HP ---
HISTORY AND PHYSICAL PREOPERATIVE DIAGNOSIS: Family planning. HISTORY OF PRESENT ILLNESS: This is a 29-year-old female who has completed her family planning and desires permanent sterilization. Risks/benefits/alternatives to a laparoscopic tubal occlusion were discussed with the patient in detail and all questions were answered for her prior to proceeding to the operating room. She is aware that this is a permanent procedure and does have a small failure rate between 3 and 4 per 1000. All questions are answered. She is stable going into surgery. PERTINENT PAST MEDICAL HISTORY: Unremarkable. PAST SURGICAL HISTORY: [place] teeth. ALLERGIES: PENICILLIN and SULFA. FAMILY HISTORY: Family history is significant for heart disease and diabetes. SOCIAL HISTORY: Significant for occasional alcohol use. PHYSICAL EXAMINATION: Vital signs are stable. Afebrile. HEART: Regular. LUNGS: Clear. Extremities are without pain. ABDOMEN: Soft. Bowel sounds are positive. She is otherwise unremarkable. Pelvic exam is unremarkable. ASSESSMENT: Family planning. PLAN: Laparoscopic tubal occlusion with [place] clips. MMODL / IJN: [id number] /
[~2019-12-03] MED LIST: Acetaminophen-Codeine 300-30mg TAB ONE; Acetaminophen-Codeine 300-30mg TAB PO ONE; BUPIVACAINE (PF) 0.25% 30 ML VIAL SQ ONE; DEXAMETHASONE SOD PHOSPHATE 10 MG/ML 1 ML VIAL IV ONE; GLYCOPYRROLATE 0.2 MG/ML 2 ML VIAL ONE; LACTATED RINGERS 1,000 ML IV SCH; LIDOCAINE 1% (10MG/ML) FOR IV START INTRADERMA PRN; LIDOCAINE 1% INJ 10MG/ML (20 ML MDV) ONE; MIDAZOLAM 2 MG/2 ML VIAL IV PRN; MIDAZOLAM 2 MG/2 ML VIAL ONE; NEOSTIGMINE 1 MG/ML 10 ML VIAL ONE; PROPOFOL 10 MG/ML 20 ML VIAL IV ONE; Pre Op ABX Message 1 EACH MISC MISCELLANE ONE; ROCURONIUM 10 MG/ML (5 ML VIAL) IV ONE; SCOPOLAMINE 1.5MG/72HR PATCH TRANSDERM ONE; SUCCINYLCHOLINE CHLORIDE 100 MG/5 ML SYR IV ONE; diphenhydrAMINE 50 MG/ML 1 ML VIAL IVP ONE; fentaNYL (PF) 50 MCG/ML 2 ML AMP IVP PRN; fentaNYL (PF) 50 MCG/ML 2 ML AMP ONE
[2019-12-03] MEDS: ONDANSETRON 4 MG/2 ML VIAL IVP ONE ×2 (07:04→08:32)
--- NOTE | 2019-12-03 08:18 | P.OP ---
Date of Procedure: 12/03/19 Preoperative Diagnosis: Family planning Postoperative Diagnosis: Same Procedure(s) Performed: Incidental notation of a small uterine perforation Anesthesia: KO Surgeon: Tani Moon Estimated Blood Loss (ml): 5 Urine output (ml): 50 Pathology: none sent Condition: stable Disposition: same day Operative Findings: This bite what was essentially gentle sounding and use of a kroner manipulator there was a small perforation of the uterus noted at the uterine fundus following sounding to 7.5 cm. Minimal bleeding is noted. Description of Procedure: Patient was taken to the operating suite where a general anesthetic was found be adequate. She was prepped and draped in normal sterile fashion and placed in the dorsal lithotomy position. Initially a speculum was inserted in the vagina and the anterior lip of cervix identified and grasped with a single-tooth tenaculum. Uterus is then sounded to 7.5 cm and a kroner manipulator was inserted without difficulty. Once this was accomplished red rubber cath was used to drain the bladder of urine. Upon completion of this closer changed and attention was turned to the abdominal portion of the procedure and 2 mL of quarter percent Marcaine was injected periumbilically. Through this injected anesthetic a 5 mm skin incision was made and through this incision, under direct visualization with an optical trocar and sleeve, the camera was inserted. Once peritoneal placement was assured gas was allowed to fully insufflate the abdomen and patient was then placed in steep Trendelenburg position. Second port and sleeve were then inserted through an 8 mm skin incision 3 cm above the pubic symphysis in the midline. Once this was accomplished uterus was elevated and immediately we can see a small perforation in the fundus. Fish clips were then placed 2 cm from uterine cornu on both the right and left fallopian tubes. With scant bleeding still noted following irrigation small piece of Surgicel was placed over the perforation and gas allowed to expel from the abdomen. 5 deep breaths were provided during this process. 4-0 Vicryl was then used to close incision subcuticularly. The remaining Marcaine was injected around these incisions. We'll plan to keep her until [place] noon today for further observation make sure is no other problems but bleeding was very minimal at the perforation the fundus and will have a long discussion with her once recovered.
[2019-12-03 08:25] VITALS: TEMP 97
[2019-12-03] MEDS: HYDROmorphone 0.5 MG/0.5 ML SYRINGE IVP PRN ×4 (08:25→09:04)
[2019-12-03 11:51] VITALS: BP 127/84; PULSE 81; RESP 18
== END | disposition home or self-care (01) ==
LOC: OR 06:20
PROVIDERS: ATTEND Obstetrics & Gynecology
DX: Z30.2 Encounter for sterilization (principal); N99.71 Accidental puncture and laceration of a genitourinary system organ or structure during a genitourinary system procedure; Z88.0 Allergy status to penicillin; Z88.2 Allergy status to sulfonamides; Z98.890 Other specified postprocedural states; Z79.1 Long term (current) use of non-steroidal anti-inflammatories (NSAID); Z82.49 Family history of ischemic heart disease and other diseases of the circulatory system; Z83.3 Family history of diabetes mellitus
CPT/HCPCS: 58671; 81025; J2250; J1200; J1100; J2710; J2405; J2001; J3010; J0330; J2704; J1170

== ENCOUNTER 2019-12-04 09:27 | Emergency (ER) | payer OTHER ==
[2019-12-04 09:37] VITALS: TEMP 98
[2019-12-04] MEDS ORDERED: METOCLOPRAMIDE 5 MG/ML 2 ML VIAL IVP STA (10:11)
[2019-12-04] MEDS ORDERED: SODIUM CHLORIDE 0.9% 1,000 ML IV ONE (10:11)
[2019-12-04] MEDS ORDERED: diphenhydrAMINE 50 MG/ML 1 ML VIAL IVP STA (10:11)
[2019-12-04] MEDS ORDERED: KETOROLAC 15 MG/ML 1 ML VIAL IVP STA (10:12)
--- NOTE | 2019-12-04 10:46 | ED ---
Headache HPI - General Chief Complaint: Headache Stated Complaint: Blurred vision, headache, post tubal Time Seen by Provider: 12/04/19 10:00 Source: RN notes reviewed Mode of arrival: ambulatory Limitations: no limitations - History of Present Illness Initial Comments: This a 29-year-old female presents emergency Department chief complaint of blurry vision, headache. Patient states she had tubal ligation yesterday. Patient states that she did have slight, [place] which she had a small puncture in her uterus states that she was monitored and was discharged yesterday. She states shortly after anesthesia and medications given yesterday she developed some blurry vision they felt that it was related to her medications and would wear off. She talked to the on-call APPLICATION PROGRAMMER ANALYST this morning in which patient developed a headache and was advised to come emergency department. She states is diffuse mild headache denies any focal weakness denies any nausea vomiting diarrhea constipation no fevers chills no neck pain or neck stiffness. She does not that she has a scopolamine patch on which this is new to her. She states only other medication she was given yesterday which was new was Dilaudid. - Related Data Home Medications Medication Instructions Recorded Confirmed Pnv,Calcium 72/Iron/Folic Acid 1 tab PO DAILY 05/31/12/03/19 [ Plus Tablet] Previous Rx's Medication Instructions Recorded Ibuprofen [Motrin] 600 mg PO Q6HR PRN #30 tab 08/31/19 Acetaminophen-Codeine 300-30mg 1 tab PO Q4H PRN #30 tablet 12/03/19 [Tylenol #3] Ibuprofen [Motrin] 600 mg PO Q6HR PRN #30 tab 12/03/19 Allergies Allergy/AdvReac Type Severity Reaction Status Date / Time Penicillins Allergy lip Verified 12/04/19 09:34 swelling Sulfa (Sulfonamide Allergy Rash/Hives Verified 12/04/19 09:34 Antibiotics) Review of Systems ROS Statement: Those systems with pertinent positive or pertinent negative responses have been documented in the HPI. ROS Other: All systems not noted in ROS Statement are negative. Past Medical History Past Medical History: GERD/Reflux Additional Past Medical History / Comment(s): Gestational diabetes History of Any Multi-Drug Resistant Organisms: None Reported Past Surgical History: Tubal Ligation Additional Past Surgical History / Comment(s): wisdom teeth removed Past Anesthesia/Blood Transfusion Reactions: No Reported Reaction Past Psychological History: No Psychological Hx Reported Smoking Status: Never smoker Past Alcohol Use History: Occasional Past Drug Use History: None Reported - Past Family History Father History Unknown: Yes Family Medical History: Coronary Artery Disease (CAD), Deep Vein Thrombosis (DVT) Additional Family Medical History / Comment(s): Heartdisease General Exam Limitations: no limitations General appearance: alert, in no apparent distress Head exam: Present: atraumatic, normocephalic, normal inspection Eye exam: Present: normal appearance, PERRL, EOMI. Absent: scleral icterus, conjunctival injection, periorbital swelling ENT exam: Present: normal exam, normal oropharynx, mucous membranes moist, TM's normal bilaterally, normal external ear exam Neck exam: Present: normal inspection, full ROM. Absent: tenderness, meningismus, lymphadenopathy Respiratory exam: Present: normal lung sounds bilaterally. Absent: respiratory distress, wheezes, rales, rhonchi, stridor Cardiovascular Exam: Present: regular rate, normal rhythm, normal heart sounds. Absent: systolic murmur, diastolic murmur, rubs, gallop, clicks GI/Abdominal exam: Present: soft, tenderness (Minimal lower), normal bowel sounds. Absent: distended, guarding, rebound, rigid Neurological exam: Present: alert, oriented X3, CN II-XII intact, reflexes normal. Absent: motor sensory deficit Skin exam: Present: warm, dry, intact, normal color. Absent: rash Course Vital Signs 12/04/19 09:34 Temperature 98 F Pulse Rate 70 Respiratory 18 Rate Blood Pressure 122/83 O2 Sat by Pulse 98 Oximetry Medical Decision Making - Medical Decision Making 29-year-old female presented for slight blurred vision, headache. Patient is post tubal ligation and symptoms are most likely related to scopolamine patch. Patient has normal neuro exam will be discharged in stable condition return parameters were discussed. Disposition Clinical Impression: Medication reaction Disposition: HOME SELF-CARE Condition: Stable Instructions (If sedation given, give patient instructions): Scopolamine (Absorbed through the skin) Additional Instructions: Please return to the Emergency Department if symptoms worsen or any other concerns. Is patient prescribed a controlled substance at d/c from ED?: No Referrals: None,Stated [Primary Care Provider] - 1-2 days Time of Disposition: 11:01
[2019-12-04 11:15] VITALS: BP 120/79; PULSE 66; RESP 17
== END 2019-12-04 11:16 | disposition home or self-care (01) ==
LOC: EC 09:27
DX: R51 Headache (principal); T50.905A Adverse effect of unspecified drugs, medicaments and biological substances, initial encounter; H53.8 Other visual disturbances; Z98.51 Tubal ligation status; Z88.0 Allergy status to penicillin; Z88.2 Allergy status to sulfonamides
CPT/HCPCS: 99283; 96374; 96375 ×2; 96361; J1200; J2765; J1885

== ENCOUNTER → 2020-03-20 | Outpatient (CLI) | payer OTHER ==
[2020-03-21 02:24] LABS: T4, Free (Free Thyroxine) 1.1 ng/dL (0.80-1.80)
== END | disposition home or self-care (01) ==
LOC: LABWHC1 15:42
PROVIDERS: ATTEND Nurse Practitioner Family
DX: E55.9 Vitamin D deficiency, unspecified (principal); R41.3 Other amnesia
CPT/HCPCS: 36415; 82607; 84207; 84439; 84443; 84481

== ENCOUNTER 2020-07-20 23:44 | Emergency (ER) | payer OTHER ==
[2020-07-20 23:51] VITALS: RESP 16; TEMP 97.8
--- NOTE | 2020-07-21 00:07 | ED ---
Chest Pain HPI - General Chief Complaint: Chest Pain Stated Complaint: Lt arm pain Time Seen by Provider: 07/20/20 23:53 Source: patient Mode of arrival: ambulatory Limitations: no limitations - History of Present Illness Initial Comments: this patient is 29-year-old woman who presents to have evaluation of chest pain at the costal margin on the left side. States that it had come on about 3 days ago and has been intermittent. She has not discovered any worsening or relieving factors. She does not seem to be able to provoke it in any way. There is no exertional component. The patient was concerned because there is family history of heart disease. She has never been a smoker. No anginal type symptoms. MD Complaint: chest pain Onset/Timin -: days(s) Onset: during rest Pain Location: left chest Severity: moderate Quality: dull Consistency: intermittent Improves With: nothing Worsens With: nothing Treatments Prior to Arrival: none - Related Data Home Medications Medication Instructions Recorded Confirmed Pnv,Calcium 72/Iron/Folic Acid 1 tab PO DAILY 06/01/15 12/03/19 [ Plus Tablet] Previous Rx's Medication Instructions Recorded Ibuprofen [Motrin] 600 mg PO Q6HR PRN #30 tab 08/31/19 Acetaminophen-Codeine 300-30mg 1 tab PO Q4H PRN #30 tablet 12/03/19 [Tylenol #3] Ibuprofen [Motrin] 600 mg PO Q6HR PRN #30 tab 12/03/19 Allergies Allergy/AdvReac Type Severity Reaction Status Date / Time Penicillins Allergy lip Verified 07/20/20 23:48 swelling Sulfa (Sulfonamide Allergy Rash/Hives Verified 07/20/20 23:48 Antibiotics) Review of Systems ROS Statement: Those systems with pertinent positive or pertinent negative responses have been documented in the HPI. ROS Other: All systems not noted in ROS Statement are negative. Constitutional: Denies: fever, chills Respiratory: Denies: cough, dyspnea Cardiovascular: Reports: chest pain. Denies: palpitations, edema Gastrointestinal: Denies: abdominal pain, nausea, vomiting, diarrhea Genitourinary: Denies: dysuria, hematuria Musculoskeletal: Denies: back pain Skin: Denies: rash Neurological: Denies: headache, weakness, numbness EKG Findings - EKG Results: EKG: interpreted by CIRO KAMINSKIL, sinus rhythm (rate 78 bpm), normal axis, normal QRS, normal ST/T Past Medical History Past Medical History: GERD/Reflux Additional Past Medical History / Comment(s): Gestational diabetes History of Any Multi-Drug Resistant Organisms: None Reported Past Surgical History: Tubal Ligation Additional Past Surgical History / Comment(s): wisdom teeth removed Past Anesthesia/Blood Transfusion Reactions: No Reported Reaction Past Psychological History: No Psychological Hx Reported Smoking Status: Never smoker Past Alcohol Use History: Occasional Past Drug Use History: None Reported - Past Family History Father History Unknown: Yes Family Medical History: Coronary Artery Disease (CAD), Deep Vein Thrombosis (DVT) Additional Family Medical History / Comment(s): Heartdisease General Exam Limitations: no limitations General appearance: alert, in no apparent distress Head exam: Present: atraumatic, normocephalic Eye exam: Present: normal appearance. Absent: scleral icterus, conjunctival injection Neck exam: Present: normal inspection Respiratory exam: Present: normal lung sounds bilaterally. Absent: respiratory distress, wheezes, rales, rhonchi, stridor, chest wall tenderness, accessory muscle use Cardiovascular Exam: Present: regular rate, normal rhythm, normal heart sounds. Absent: systolic murmur, diastolic murmur, rubs, gallop GI/Abdominal exam: Present: soft. Absent: distended, tenderness, guarding, rebound, rigid, mass Extremities exam: Present: normal inspection, normal capillary refill. Absent: pedal edema, calf tenderness Back exam: Present: normal inspection. Absent: CVA tenderness (R), CVA tenderness (L) Neurological exam: Present: alert Skin exam: Present: warm, dry, intact, normal color. Absent: rash Course Vital Signs 07/20/20 07/21/20 23:48 01:26 Temperature 97.8 F Pulse Rate 98 75 Respiratory 16 16 Rate Blood Pressure 123/87 108/77 O2 Sat by Pulse 99 97 Oximetry Disposition Clinical Impression: Chest pain Disposition: HOME SELF-CARE Condition: Good Instructions (If sedation given, give patient instructions): Chest Pain (ED) Is patient prescribed a controlled substance at d/c from ED?: No Referrals: David Ring MD [Primary Care Provider] - 1-2 days
[2020-07-21 00:27] LABS: Basophils % (A) 1 %; Eosinophils # (A) 0.2 k/uL (0-0.7); Eosinophils % (A) 3 %; HCT 39.4 % (34.0-46.0); HGB 13.4 gm/dL (11.4-16.0); Lymphocytes # (A) 2.2 k/uL (1.0-4.8); Lymphocytes % (A) 38 %; MCH 29.2 pg (25.0-35.0); MCHC 34.1 g/dL (31.0-37.0); MCV 85.5 fL (80.0-100.0); Mean Platelet Volume 7.1; Monocytes # (A) 0.3 k/uL (0-1.0); Monocytes % (A) 4 %; Neutrophils % (A) 52 %; Platelet Count 272 k/uL (150-450); RDW 12.7 % (11.5-15.5); WBC 5.8 k/uL (3.8-10.6)
[2020-07-21 00:42] LABS: ALT 27 U/L (4-34); AST 24 U/L (14-36); African American GFR (CKD) >90 (>60 ml/min/1.73 sqM); Albumin 4.4 g/dL (3.5-5.0); Alkaline Phosphatase 68 U/L (38-126); Anion Gap 11 mmol/L; Blood Urea Nitrogen 17 mg/dL (7-17); Calcium 9.1 mg/dL (8.4-10.2); Carbon Dioxide 18 mmol/L (22-30); Chloride 112 mmol/L (98-107); Glucose 102 mg/dL (74-99); Non-African American GFR(CKD) >90 (>60 ml/min/1.73 sqM); Potassium 3.8 mmol/L (3.5-5.1); Sodium 141 mmol/L (137-145); Total Bilirubin 0.4 mg/dL (0.2-1.3); Total Protein 7.6 g/dL (6.3-8.2)
[2020-07-21 00:43] LABS: D-Dimer <0.17 mg/L FEU (<0.60); Partial Thromboplastin Time 24.3 sec (22.0-30.0); Prothrombin Time 10.7 sec (9.0-12.0)
[2020-07-21 01:26] VITALS: BP 108/77; PULSE 75
--- NOTE | 2020-07-21 01:29 | XR ---
EXAM: XR Chest, 2 Views CLINICAL HISTORY: ITS.REASON XR Reason: Chest Pain TECHNIQUE: Frontal and lateral views of the chest. COMPARISON: 03/10/2018. FINDINGS: Lungs: Unremarkable. No consolidation. Pleural space: Unremarkable. No pneumothorax. Heart: Unremarkable. No cardiomegaly. Mediastinum: Unremarkable. Bones/joints: Unremarkable. IMPRESSION: No evidence of acute cardiopulmonary disease.
== END 2020-07-21 02:00 | disposition home or self-care (01) ==
LOC: EC 23:44
DX: R07.89 Other chest pain (principal); M79.602 Pain in left arm; K21.9 Gastro-esophageal reflux disease without esophagitis; Z88.0 Allergy status to penicillin; Z79.1 Long term (current) use of non-steroidal anti-inflammatories (NSAID)
CPT/HCPCS: 36415; 71046; 80053; 83735; 84484; 85025; 85379; 85610; 85730; 93005; 99285

== ENCOUNTER → 2020-07-24 | Outpatient (CLI) | payer OTHER ==
--- NOTE | 2020-07-25 08:49 | XR ---
KUB HISTORY: R 10.12 Frontal KUB submitted on 2 images, comparison to prior exam 10/31/2013 There is no evident obstruction or pneumoperitoneum. Lung bases are clear. No pathologic calcificatio n evident. There is some retained fecal debris present throughout the distribution of the colon. Over lying artifact noted. Bone mineralization is normal. Fallopian tubal ligation clips are present in th e pelvis as well as probable phleboliths. IMPRESSION: Nonspecific findings, correlate for possible fecal stasis. Postop changes.
== END | disposition home or self-care (01) ==
LOC: RADXRMAIN 17:06
PROVIDERS: ATTEND Internal Medicine
DX: R10.12 Left upper quadrant pain (principal)
CPT/HCPCS: 74018

== ENCOUNTER → 2020-07-27 | Outpatient (CLI) | payer OTHER ==
--- NOTE | 2020-07-28 08:05 | US ---
EXAMINATION TYPE: US abdomen complete DATE OF EXAM: 07/27/2020 COMPARISON: NONE CLINICAL HISTORY: R10.12 LEFT UPPER QUADRANT PAIN. EXAM MEASUREMENTS: Liver Length: 14.9 cm Gallbladder Wall: 0.1 cm CBD: 0.4 cm Spleen: 10.2 cm Right Kidney: 10.7 x 5.2 x 4.8 cm Left Kidney: 11.0 x 5.0 x 4.9 cm Pancreas: The head and tail obscured by overlying bowel gas Liver: mildly hyperechoic to right renal cortex Gallbladder: wnl Evidence for sonographic Hawk's sign: no CBD: wnl Spleen: wnl Right Kidney: No hydronephrosis or masses seen Left Kidney: No hydronephrosis or masses seen Upper IVC: Visualized upper IVC within normal limits Abd Aorta: wnl No evidence of abdominal aortic aneurysm. The head and tail of the pancreas are obscured by overlying bowel gas. Mild diffuse fatty infiltration of the liver. No renal calculi or hydronephrosis. No gall stones are seen. No pericholecystic fluid. Common duct is within normal limits in size. Spleen is nor mal limits in caliber. IMPRESSION: 1. The head and tail of the pancreas are obscured by overlying bowel gas. 2. Mild diffuse fatty infiltration of the liver.
== END | disposition home or self-care (01) ==
LOC: RADUSWWP 14:57
PROVIDERS: ATTEND Internal Medicine
DX: K76.0 Fatty (change of) liver, not elsewhere classified (principal)
CPT/HCPCS: 76700

== ENCOUNTER 2021-02-16 09:42 | Emergency (ER) | payer OTHER ==
[2021-02-16] MEDS ORDERED: KETOROLAC 15 MG/ML 1 ML VIAL IVP STA (10:29)
[2021-02-16] MEDS ORDERED: SODIUM CHLORIDE 0.9% 1,000 ML IV STA (10:29)
[2021-02-16 11:13] VITALS: RESP 16
[2021-02-16 11:43] LABS: Basophils % (A) 1 %; Eosinophils # (A) 0.1 k/uL (0-0.7); Eosinophils % (A) 1 %; HCT 41.3 % (34.0-46.0); HGB 13.7 gm/dL (11.4-16.0); Lymphocytes # (A) 1.8 k/uL (1.0-4.8); Lymphocytes % (A) 33 %; MCH 30.4 pg (25.0-35.0); MCHC 33.2 g/dL (31.0-37.0); MCV 91.6 fL (80.0-100.0); Mean Platelet Volume 7.6; Monocytes # (A) 0.3 k/uL (0-1.0); Monocytes % (A) 5 %; Neutrophils # (A) 3.2 k/uL (1.3-7.7); Neutrophils % (A) 59 %; Platelet Count 278 k/uL (150-450); RBC 4.51 m/uL (3.80-5.40); RDW 12.3 % (11.5-15.5); WBC 5.4 k/uL (3.8-10.6)
--- NOTE | 2021-02-16 11:48 | ED ---
General Adult HPI - General Chief complaint: Chest Pain Stated complaint: Rib pain Time Seen by Provider: 02/16/21 09:52 Source: patient, RN notes reviewed Mode of arrival: ambulatory Limitations: no limitations - History of Present Illness Initial comments: 30-year-old female with a past medical history of GERD presents to the emergency room for left sided rib pain. Patient has had left rib pain for the past 2 nights. States it worsens with movement and pressing on the area. Patient reports this happened to her 6 months ago and seemed to resolve. States that it seems to worsen when she is on healthy foods. She denies any right-sided or lower abdominal pain. Denies fevers or chills. Denies nausea vomiting diarrhea. She had talked with her doctor about this about 6 months ago but since it had gone away she did not follow up again.Patient has no other complaints at this time including shortness of breath, chest pain, abdominal pain, nausea or vomiting, headache, or visual changes. - Related Data Home Medications Medication Instructions Recorded Confirmed SUMAtriptan succinate [Imitrex] 50 mg PO DAILY PRN 02/16/21 02/16/21 Sertraline [Zoloft] 50 mg PO DAILY 02/16/21 02/16/21 Topiramate [Topamax] 50 mg PO BID 02/16/21 02/16/21 Allergies Allergy/AdvReac Type Severity Reaction Status Date / Time Penicillins Allergy lip Verified 02/16/21 10:27 swelling Sulfa (Sulfonamide Allergy Rash/Hives Verified 02/16/21 10:27 Antibiotics) Review of Systems ROS Statement: Those systems with pertinent positive or pertinent negative responses have been documented in the HPI. ROS Other: All systems not noted in ROS Statement are negative. Past Medical History Past Medical History: GERD/Reflux Additional Past Medical History / Comment(s): Gestational diabetes History of Any Multi-Drug Resistant Organisms: None Reported Past Surgical History: Tubal Ligation Additional Past Surgical History / Comment(s): wisdom teeth removed Past Anesthesia/Blood Transfusion Reactions: No Reported Reaction Past Psychological History: No Psychological Hx Reported Smoking Status: Never smoker Past Alcohol Use History: Occasional Past Drug Use History: None Reported - Past Family History Father History Unknown: Yes Family Medical History: Coronary Artery Disease (CAD), Deep Vein Thrombosis (DVT) Additional Family Medical History / Comment(s): Heartdisease General Exam Limitations: no limitations General appearance: alert, in no apparent distress Head exam: Present: atraumatic Eye exam: Present: normal appearance, PERRL, EOMI. Absent: scleral icterus, conjunctival injection ENT exam: Present: normal exam, mucous membranes moist Neck exam: Present: normal inspection, full ROM. Absent: tenderness Respiratory exam: Present: normal lung sounds bilaterally, chest wall tenderness (L sided anterior lower rib tenderness). Absent: respiratory distress, wheezes Cardiovascular Exam: Present: regular rate, normal rhythm, normal heart sounds GI/Abdominal exam: Present: soft, normal bowel sounds. Absent: distended, tenderness Neurological exam: Present: alert Course Vital Signs 02/16/21 02/16/21 09:43 11:10 Temperature 98.3 F 97.6 F Pulse Rate 72 69 Respiratory 18 16 Rate Blood Pressure 110/78 O2 Sat by Pulse 100 100 Oximetry EKG Findings - EKG Comments: EKG Findings:: Normal sinus rhythm, ventricular rate 69, NH interval 136, QTC 430 Medical Decision Making - Medical Decision Making Vitals are stable. Laboratory evaluation unremarkable. CBC and CMP are within normal limits. Slight dehydration however patient given fluids. Urinalysis does show 11 white blood cells however no urinary symptoms. No CVA tenderness. EKG shows a normal sinus rhythm with a ventricular rate of 69. Chest x-ray with rib study shows no acute abnormality. Patient was given Toradol and did have some improvement in symptoms. It is likely intercostal muscle strain. However Patient can be discharged home to follow up with primary care for further imaging as necessary. Patient will return here for any worsening symptoms. - Lab Data Result diagrams: 02/16/21 11:10 02/16/21 12:13 Lab Results 02/16/21 02/16/21 02/16/21 Range/Units 11:10 11:10 11:10 WBC 5.4 (3.8-10.6) k/uL RBC 4.51 (3.80-5.40) m/uL Hgb 13.7 (11.4-16.0) gm/dL Hct 41.3 (34.0-46.0) % MCV 91.6 (80.0-100.0) fL MCH 30.4 (25.0-35.0) pg MCHC 33.2 (31.0-37.0) g/dL RDW 12.3 (11.5-15.5) % Plt Count 278 (150-450) k/uL MPV 7.6 Neutrophils % 59 % Lymphocytes % 33 % Monocytes % 5 % Eosinophils % 1 % Basophils % 1 % Neutrophils # 3.2 (1.3-7.7) k/uL Lymphocytes # 1.8 (1.0-4.8) k/uL Monocytes # 0.3 (0-1.0) k/uL Eosinophils # 0.1 (0-0.7) k/uL Basophils # 0.0 (0-0.2) k/uL Sodium (137-145) mmol/L Potassium (3.5-5.1) mmol/L Chloride (98-107) mmol/L Carbon Dioxide (22-30) mmol/L Anion Gap mmol/L BUN (7-17) mg/dL Creatinine (0.52-1.04) mg/dL Est GFR (CKD-EPI)AfAm (>60 ml/min/1.73 sqM) Est GFR (CKD-EPI)NonAf (>60 ml/min/1.73 sqM) Glucose (74-99) mg/dL Calcium (8.4-10.2) mg/dL Total Bilirubin (0.2-1.3) mg/dL AST (14-36) U/L ALT (4-34) U/L Alkaline Phosphatase (38-126) U/L Total Protein (6.3-8.2) g/dL Albumin (3.5-5.0) g/dL Amylase (30-110) U/L Lipase (23-300) U/L Urine Color Yellow Urine Appearance Cloudy H (Clear) Urine pH 5.5 (5.0-8.0) Ur Specific [place] 1.028 (1.001-1.035) Urine Protein Trace H (Negative) Urine Glucose (UA) Negative (Negative) Urine Ketones Negative (Negative) Urine Blood Moderate H (Negative) Urine Nitrite Negative (Negative) Urine Bilirubin Negative (Negative) Urine Urobilinogen <2.0 (<2.0) mg/dL Ur Leukocyte Esterase Large H (Negative) Urine RBC 1 (0-5) /hpf Urine WBC 11 H (0-5) /hpf Ur Squamous Epith Cells 3 (0-4) /hpf Urine Mucus Many H (None) /hpf Urine HCG, Qual Not Detected (Not Detectd) 02/16/21 Range/Units 12:13 WBC (3.8-10.6) k/uL RBC (3.80-5.40) m/uL Hgb (11.4-16.0) gm/dL Hct (34.0-46.0) % MCV (80.0-100.0) fL MCH (25.0-35.0) pg MCHC (31.0-37.0) g/dL RDW (11.5-15.5) % Plt Count (150-450) k/uL MPV Neutrophils % % Lymphocytes % % Monocytes % % Eosinophils % % Basophils % % Neutrophils # (1.3-7.7) k/uL Lymphocytes # (1.0-4.8) k/uL Monocytes # (0-1.0) k/uL Eosinophils # (0-0.7) k/uL Basophils # (0-0.2) k/uL Sodium 139 (137-145) mmol/L Potassium 4.9 (3.5-5.1) mmol/L Chloride 108 H (98-107) mmol/L Carbon Dioxide 22 (22-30) mmol/L Anion Gap 9 mmol/L BUN 19 H (7-17) mg/dL Creatinine 0.68 (0.52-1.04) mg/dL Est GFR (CKD-EPI)AfAm >90 (>60 ml/min/1.73 sqM) Est GFR (CKD-EPI)NonAf >90 (>60 ml/min/1.73 sqM) Glucose 79 (74-99) mg/dL Calcium 8.8 (8.4-10.2) mg/dL Total Bilirubin 0.8 (0.2-1.3) mg/dL AST 30 (14-36) U/L ALT 16 (4-34) U/L Alkaline Phosphatase 50 (38-126) U/L Total Protein 7.7 (6.3-8.2) g/dL Albumin 4.4 (3.5-5.0) g/dL Amylase 60 (30-110) U/L Lipase 68 (23-300) U/L Urine Color Urine Appearance (Clear) Urine pH (5.0-8.0) Ur Specific [place] (1.001-1.035) Urine Protein (Negative) Urine Glucose (UA) (Negative) Urine Ketones (Negative) Urine Blood (Negative) Urine Nitrite (Negative) Urine Bilirubin (Negative) Urine Urobilinogen (<2.0) mg/dL Ur Leukocyte Esterase (Negative) Urine RBC (0-5) /hpf Urine WBC (0-5) /hpf Ur Squamous Epith Cells (0-4) /hpf Urine Mucus (None) /hpf Urine HCG, Qual (Not Detectd) Disposition Clinical Impression: Rib pain on left side Disposition: HOME SELF-CARE Condition: Good Instructions (If sedation given, give patient instructions): Rib Contusion (ED) Additional Instructions: Please follow up with primary care in 1-2 days. Return to the ER for any worsening symptoms. Is patient prescribed a controlled substance at d/c from ED?: No Referrals: David Ring MD [Primary Care Provider] - 1-2 days Time of Disposition: 13:55
--- NOTE | 2021-02-16 11:54 | XR ---
Left RIBS with chest x-ray HISTORY: Pain, pain with inspiration Frontal view of the chest, 3 views the left ribs submitted and correlated prior chest x-ray 07/21/2020 There is no evident displaced rib fracture. No pneumothorax or pleural effusion. Cardiac mediastinal silhouette is within normal limits. Bones are stable. IMPRESSION: No acute abnormality. Bone scan could be performed if occult fracture is suspected clinic ally.
[2021-02-16 11:58] LABS: Appearance,Urine Cloudy (Clear); Bilirubin,Urine Negative (Negative); Blood,Urine Moderate (Negative); Color,Urine Yellow; Glucose,Urine (UA) Negative (Negative); Ketones,Urine Negative (Negative); Leukocyte Esterase,Urine Large (Negative); Mucus,Urine Many /hpf; Nitrite,Urine Negative (Negative); PH, Urine 5.5 (5.0-8.0); Protein,Urine Trace (Negative); RBC,Urine 1 /hpf (0-5); Specific Gravity,Urine 1.028 (1.001-1.035); Squamous Epithelial Cell,Urine 3 /hpf (0-4); Urobilinogen,Urine <2.0 mg/dL (<2.0); WBC,Urine 11 /hpf (0-5)
[2021-02-16 12:36] LABS: ALT 16 U/L (4-34); AST 30 U/L (14-36); African American GFR (CKD) >90 (>60 ml/min/1.73 sqM); Albumin 4.4 g/dL (3.5-5.0); Alkaline Phosphatase 50 U/L (38-126); Amylase 60 U/L (30-110); Anion Gap 9 mmol/L; Blood Urea Nitrogen 19 mg/dL (7-17); Calcium 8.8 mg/dL (8.4-10.2); Carbon Dioxide 22 mmol/L (22-30); Chloride 108 mmol/L (98-107); Glucose 79 mg/dL (74-99); Lipase 68 U/L (23-300); Non-African American GFR(CKD) >90 (>60 ml/min/1.73 sqM); Sodium 139 mmol/L (137-145); Total Bilirubin 0.8 mg/dL (0.2-1.3); Total Protein 7.7 g/dL (6.3-8.2)
[2021-02-16 12:40] LABS: Potassium 4.9 mmol/L (3.5-5.1)
[2021-02-16 14:16] VITALS: BP 103/65; PULSE 73; TEMP 98.5
== END 2021-02-16 14:43 | disposition home or self-care (01) ==
LOC: EC 09:42
DX: R07.81 Pleurodynia (principal); E86.0 Dehydration; Z88.0 Allergy status to penicillin; Z88.2 Allergy status to sulfonamides
CPT/HCPCS: 36415; 93005; 80053; 82150; 83690; 85025; 81001; 81025; 87086; 71101; 99284; 96374; 96361; J1885

== ENCOUNTER 2021-03-04 19:35 | Emergency (ER) | payer OTHER ==
[2021-03-04 20:55] LABS: Appearance,Urine Cloudy (Clear); Bacteria,Urine Rare /hpf; Bilirubin,Urine Negative (Negative); Blood,Urine Negative (Negative); Color,Urine Yellow; Glucose,Urine (UA) Negative (Negative); Ketones,Urine Negative (Negative); Leukocyte Esterase,Urine Trace (Negative); Mucus,Urine Many /hpf; Nitrite,Urine Negative (Negative); Protein,Urine 1+ (Negative); RBC,Urine 2 /hpf (0-5); Specific Gravity,Urine 1.032 (1.001-1.035); Squamous Epithelial Cell,Urine 9 /hpf (0-4); Urobilinogen,Urine <2.0 mg/dL (<2.0); WBC,Urine 4 /hpf (0-5)
[2021-03-04 21:40] LABS: Basophils % (A) 1 %; Eosinophils # (A) 0.1 k/uL (0-0.7); Eosinophils % (A) 3 %; HCT 39.7 % (34.0-46.0); HGB 13.2 gm/dL (11.4-16.0); Lymphocytes # (A) 1.2 k/uL (1.0-4.8); Lymphocytes % (A) 29 %; MCH 30.6 pg (25.0-35.0); MCHC 33.2 g/dL (31.0-37.0); MCV 92.2 fL (80.0-100.0); Mean Platelet Volume 7.7; Monocytes # (A) 0.3 k/uL (0-1.0); Monocytes % (A) 8 %; Neutrophils # (A) 2.4 k/uL (1.3-7.7); Neutrophils % (A) 58 %; Platelet Count 235 k/uL (150-450); RBC 4.31 m/uL (3.80-5.40); WBC 4.2 k/uL (3.8-10.6)
[2021-03-04 21:49] LABS: ALT 16 U/L (4-34); African American GFR (CKD) >90 (>60 ml/min/1.73 sqM); Anion Gap 14 mmol/L; Blood Urea Nitrogen 15 mg/dL (7-17); Calcium 8.9 mg/dL (8.4-10.2); Carbon Dioxide 21 mmol/L (22-30); Chloride 103 mmol/L (98-107); Glucose 93 mg/dL (74-99); Non-African American GFR(CKD) >90 (>60 ml/min/1.73 sqM); Sodium 138 mmol/L (137-145); Total Bilirubin 0.6 mg/dL (0.2-1.3)
[2021-03-04 22:08] LABS: Albumin 4.6 g/dL (3.5-5.0); Potassium 4.3 mmol/L (3.5-5.1); Total Protein 8.2 g/dL (6.3-8.2)
[2021-03-04 22:09] LABS: AST 33 U/L (14-36); Alkaline Phosphatase 62 U/L (38-126)
[2021-03-04] MEDS ORDERED: MORPHINE SULFATE 4 MG/ML SYRINGE IVP STA (22:25)
--- NOTE | 2021-03-05 00:49 | CT ---
EXAMINATION TYPE: CT abdomen pelvis w con DATE OF EXAM: 03/04/2021 COMPARISON: None HISTORY: right lower abd pain CT DLP: 559.9 mGycm Automated exposure control for dose reduction was used. CONTRAST: Performed with IV Contrast, patient injected with 100 mL of Isovue 300. Images obtained from the diaphragm to the floor the pelvis with IV contrast. Lung bases are clear. There is no pleural effusion. Heart is normal. Liver spleen and stomach pancreas gallbladder appear normal. The bile ducts are not dilated. There is no adrenal mass. Kidneys show satisfactory contrast opacification. There is no hydronephrosi s. Delayed images show normal excretion. There is no hydronephrosis. Ureters are not dilated. Bladder distends smoothly. There is no retroperitoneal adenopathy. There is no mesenteric edema. There is no ascites or free air. There is no sign of a bowel obstructio n. There are multiple large bowel fluid levels down to the rectum. There is small amount of free flui d in the pelvis. There are clips from tubal ligation. There is 3 cm cyst on the right ovary. Appendix appears to be small and lies along the right iliac vessels. Lumbar vertebrae have normal spacing and alignment. There is no compression fracture. Posterior eleme nts are intact. Bony pelvis is intact. Hip joints are intact. IMPRESSION: Right ovarian cyst. Small amount of low-density free fluid in the pelvis could be physiologic. No inna dence of appendicitis. Large bowel fluid levels down to the rectum consistent with diarrhea.
--- NOTE | 2021-03-05 01:05 | ED ---
Abdominal Pain HPI - General Chief Complaint: Abdominal Pain Stated Complaint: Right side pain Time Seen by Provider: 03/04/21 21:47 Source: patient, RN notes reviewed Mode of arrival: ambulatory - History of Present Illness Initial Comments: Patient is a 30-year-old female is complaining of right lower quadrant pain. She notes that on and off for the past several days. She denied any alleviating factors. She notes that when she moves it tends to her little bit more. She denied any change in bowel habits. She was otherwise well-appearing in no apparent distress. She denied chest pain shortness of breath headache nausea vomiting diarrhea constipation fever fatigue chills. - Related Data Home Medications Medication Instructions Recorded Confirmed Sertraline [Zoloft] 50 mg PO DAILY 02/16/21 03/04/21 Topiramate [Topamax] 50 mg PO DAILY 02/16/21 03/04/21 Ibuprofen [Advil] 600 mg PO ONCE PRN 03/04/21 03/04/21 Allergies Allergy/AdvReac Type Severity Reaction Status Date / Time Penicillins Allergy lip Verified 03/04/21 22:57 swelling Sulfa (Sulfonamide Allergy Rash/Hives Verified 03/04/21 22:57 Antibiotics) Review of Systems ROS Statement: Those systems with pertinent positive or pertinent negative responses have been documented in the HPI. ROS Other: All systems not noted in ROS Statement are negative. Past Medical History Past Medical History: GERD/Reflux Additional Past Medical History / Comment(s): Gestational diabetes History of Any Multi-Drug Resistant Organisms: None Reported Past Surgical History: Tubal Ligation Additional Past Surgical History / Comment(s): wisdom teeth removed Past Anesthesia/Blood Transfusion Reactions: No Reported Reaction Past Psychological History: Anxiety Smoking Status: Never smoker Past Alcohol Use History: Occasional Past Drug Use History: None Reported - Past Family History Father History Unknown: Yes Family Medical History: Coronary Artery Disease (CAD), Deep Vein Thrombosis (DVT) Additional Family Medical History / Comment(s): Heartdisease General Exam General appearance: alert, in no apparent distress Head exam: Present: atraumatic, normocephalic, normal inspection Eye exam: Present: normal appearance, PERRL, EOMI. Absent: scleral icterus, conjunctival injection, periorbital swelling ENT exam: Present: normal exam, mucous membranes moist Neck exam: Present: normal inspection Respiratory exam: Present: normal lung sounds bilaterally. Absent: respiratory distress, wheezes, rales, rhonchi, stridor Cardiovascular Exam: Present: regular rate, normal rhythm, normal heart sounds. Absent: systolic murmur, diastolic murmur, rubs, gallop, clicks GI/Abdominal exam: Present: soft, tenderness (very minimal in the right lower quadrant with deep palpation), normal bowel sounds. Absent: distended, guarding, rebound, rigid Extremities exam: Present: normal inspection, full ROM, normal capillary refill. Absent: tenderness, pedal edema, joint swelling, calf tenderness Neurological exam: Present: alert, oriented X3 Psychiatric exam: Present: normal affect, normal mood Skin exam: Present: warm Course Vital Signs 03/04/21 20:36 Temperature 99.0 F Pulse Rate 77 Respiratory 20 Rate Blood Pressure 112/55 O2 Sat by Pulse 100 Oximetry Medical Decision Making - Medical Decision Making 30-year-old female complaining of right lower quadrant pain. Labs, 1 L normal saline, 4 mg of morphine, CT of the abdomen and pelvis ordered. Labs are unremarkable and within normal limits per Computed tomography scan shows a right ovarian cyst and diarrhea with no acute findings. Patient was informed results is able to discharge home. Case discussed with Dr. Sin - Lab Data Result diagrams: 03/04/21 20:47 03/04/21 20:47 Lab Results 03/04/21 03/04/21 03/04/21 Range/Units 20:39 20:39 20:47 WBC 4.2 (3.8-10.6) k/uL RBC 4.31 (3.80-5.40) m/uL Hgb 13.2 (11.4-16.0) gm/dL Hct 39.7 (34.0-46.0) % MCV 92.2 (80.0-100.0) fL MCH 30.6 (25.0-35.0) pg MCHC 33.2 (31.0-37.0) g/dL RDW 12.0 (11.5-15.5) % Plt Count 235 (150-450) k/uL MPV 7.7 Neutrophils % 58 % Lymphocytes % 29 % Monocytes % 8 % Eosinophils % 3 % Basophils % 1 % Neutrophils # 2.4 (1.3-7.7) k/uL Lymphocytes # 1.2 (1.0-4.8) k/uL Monocytes # 0.3 (0-1.0) k/uL Eosinophils # 0.1 (0-0.7) k/uL Basophils # 0.0 (0-0.2) k/uL Sodium (137-145) mmol/L Potassium (3.5-5.1) mmol/L Chloride (98-107) mmol/L Carbon Dioxide (22-30) mmol/L Anion Gap mmol/L BUN (7-17) mg/dL Creatinine (0.52-1.04) mg/dL Est GFR (CKD-EPI)AfAm (>60 ml/min/1.73 sqM) Est GFR (CKD-EPI)NonAf (>60 ml/min/1.73 sqM) Glucose (74-99) mg/dL Calcium (8.4-10.2) mg/dL Total Bilirubin (0.2-1.3) mg/dL AST (14-36) U/L ALT (4-34) U/L Alkaline Phosphatase (38-126) U/L Total Protein (6.3-8.2) g/dL Albumin (3.5-5.0) g/dL Urine Color Yellow Urine Appearance Cloudy H (Clear) Urine pH 6.0 (5.0-8.0) Ur Specific [place] 1.032 (1.001-1.035) Urine Protein 1+ H (Negative) Urine Glucose (UA) Negative (Negative) Urine Ketones Negative (Negative) Urine Blood Negative (Negative) Urine Nitrite Negative (Negative) Urine Bilirubin Negative (Negative) Urine Urobilinogen <2.0 (<2.0) mg/dL Ur Leukocyte Esterase Trace H (Negative) Urine RBC 2 (0-5) /hpf Urine WBC 4 (0-5) /hpf Ur Squamous Epith Cells 9 H (0-4) /hpf Urine Bacteria Rare H (None) /hpf Urine Mucus Many H (None) /hpf Urine HCG, Qual Not Detected (Not Detectd) 03/04/21 Range/Units 20:47 WBC (3.8-10.6) k/uL RBC (3.80-5.40) m/uL Hgb (11.4-16.0) gm/dL Hct (34.0-46.0) % MCV (80.0-100.0) fL MCH (25.0-35.0) pg MCHC (31.0-37.0) g/dL RDW (11.5-15.5) % Plt Count (150-450) k/uL MPV Neutrophils % % Lymphocytes % % Monocytes % % Eosinophils % % Basophils % % Neutrophils # (1.3-7.7) k/uL Lymphocytes # (1.0-4.8) k/uL Monocytes # (0-1.0) k/uL Eosinophils # (0-0.7) k/uL Basophils # (0-0.2) k/uL Sodium 138 (137-145) mmol/L Potassium 4.3 (3.5-5.1) mmol/L Chloride 103 (98-107) mmol/L Carbon Dioxide 21 L (22-30) mmol/L Anion Gap 14 mmol/L BUN 15 (7-17) mg/dL Creatinine 0.62 (0.52-1.04) mg/dL Est GFR (CKD-EPI)AfAm >90 (>60 ml/min/1.73 sqM) Est GFR (CKD-EPI)NonAf >90 (>60 ml/min/1.73 sqM) Glucose 93 (74-99) mg/dL Calcium 8.9 (8.4-10.2) mg/dL Total Bilirubin 0.6 (0.2-1.3) mg/dL AST 33 (14-36) U/L ALT 16 (4-34) U/L Alkaline Phosphatase 62 (38-126) U/L Total Protein 8.2 (6.3-8.2) g/dL Albumin 4.6 (3.5-5.0) g/dL Urine Color Urine Appearance (Clear) Urine pH (5.0-8.0) Ur Specific [place] (1.001-1.035) Urine Protein (Negative) Urine Glucose (UA) (Negative) Urine Ketones (Negative) Urine Blood (Negative) Urine Nitrite (Negative) Urine Bilirubin (Negative) Urine Urobilinogen (<2.0) mg/dL Ur Leukocyte Esterase (Negative) Urine RBC (0-5) /hpf Urine WBC (0-5) /hpf Ur Squamous Epith Cells (0-4) /hpf Urine Bacteria (None) /hpf Urine Mucus (None) /hpf Urine HCG, Qual (Not Detectd) - Radiology Data Radiology results: report reviewed, image reviewed CT of the abdomen and pelvis: Right ovarian cyst. Small amount of low density free fluid in the pelvis could be from his urologic. No evidence of appendicitis. Large bowel fluid levels down to the rectum consistent diarrhea. Disposition Clinical Impression: Right ovarian cyst Disposition: HOME SELF-CARE Condition: Stable Instructions (If sedation given, give patient instructions): Ovarian Cyst (ED) Additional Instructions: Please return to the Emergency Department if symptoms worsen or any other concerns. Follow-up with primary care 1-2 days. Follow-up with ACCOUNTING OFFICER as needed. Is patient prescribed a controlled substance at d/c from ED?: No Referrals: David Ring MD [Primary Care Provider] - 1-2 days Time of Disposition: 01:05
[2021-03-05 01:20] VITALS: BP 119/77; PULSE 74; RESP 18; TEMP 98.1
== END 2021-03-05 01:19 | disposition home or self-care (01) ==
LOC: EC 19:35
DX: N83.201 Unspecified ovarian cyst, right side (principal); Z88.0 Allergy status to penicillin; Z88.2 Allergy status to sulfonamides
CPT/HCPCS: 36415; 80053; 85025; 81001; 81025; 74177; 99284; 96374; J2270; Q9967

== ENCOUNTER 2021-03-23 08:45 | Emergency (ER) | payer OTHER ==
[2021-03-23 08:54] VITALS: RESP 16; TEMP 97.9
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
--- NOTE | 2021-03-23 09:49 | XR ---
EXAMINATION TYPE: XR shoulder complete LT DATE OF EXAM: 03/23/2021 COMPARISON: NONE HISTORY: Pain TECHNIQUE: Three views are submitted. FINDINGS: The osseous structures are intact. There is no acute fracture or dislocation. The AC joint is maint ained. Chronic appearing deformity of the mid left clavicle IMPRESSION: 1. No acute process.
[2021-03-23] MEDS ORDERED: ACETAMINOPHEN TAB 325 MG TAB PO STA (10:06)
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
[2021-03-23] MEDS ORDERED: KETOROLAC 30 MG/ML 1 ML VIAL IVP STA (10:38)
[2021-03-23 10:51] VITALS: BP 124/87; PULSE 85
== END 2021-03-23 10:50 | disposition home or self-care (01) ==
LOC: EC 08:45
DX: S40.012A Contusion of left shoulder, initial encounter (principal); S00.01XA Abrasion of scalp, initial encounter; S00.412A Abrasion of left ear, initial encounter; S30.811A Abrasion of abdominal wall, initial encounter; Z88.2 Allergy status to sulfonamides; Z88.1 Allergy status to other antibiotic agents; V58.5XXA Driver of pick-up truck or van injured in noncollision transport accident in traffic accident, initial encounter; Y92.89 Other specified places as the place of occurrence of the external cause
CPT/HCPCS: 99284; 96374; 73030; 72125; 70450; 71260; 74177; J1885; Q9967

== ENCOUNTER → 2021-03-30 | Outpatient (CLI) | payer OTHER ==
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
== END | disposition home or self-care (01) ==
LOC: RADCTMAIN 07:38
PROVIDERS: ATTEND Internal Medicine
DX: R27.0 Ataxia, unspecified (principal)
CPT/HCPCS: 70450

== ENCOUNTER 2021-04-07 13:55 | Emergency (ER) | payer OTHER ==
[2021-04-07] MEDS ORDERED: ORPHENADRINE 30 MG/ML 2 ML VIAL IM STA (14:47)
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
[2021-04-07] MEDS ORDERED: ACET/COD 300 MG/30 MG STARTER PACK 6 TAB BTL PO STA (15:44)
[2021-04-07 15:53] VITALS: BP 115/79; PULSE 65; RESP 16; TEMP 99
== END 2021-04-07 15:49 | disposition home or self-care (01) ==
LOC: EC 13:55
DX: S16.1XXA Strain of muscle, fascia and tendon at neck level, initial encounter (principal); Z88.0 Allergy status to penicillin; Z88.2 Allergy status to sulfonamides; V99.XXXA Unspecified transport accident, initial encounter
CPT/HCPCS: 72125; 99284; 96372; J2360

== ENCOUNTER → 2021-07-19 | Outpatient (CLI) | payer OTHER ==
--- NOTE | 2021-07-19 19:26 | US ---
EXAMINATION TYPE: US pelvis complete transvag DATE OF EXAM: 07/19/2021 COMPARISON: NONE CLINICAL HISTORY: 30-year-old female N83.00 FOLLICULAR CYST OF OVARY RIGHT SIDE. TECHNIQUE: Transvaginal (TV) and Transabdominal (TA) . Transabdominal sonographic images of the pel vis were acquired. Transvaginal sonographic images were medically necessary. Date of LMP: 3 months prior, patient unsure of date control with menses only every 3 months. EXAM MEASUREMENTS: Uterus: 6.7 x 4.2 x 4.7 cm Endometrial Stripe: 0.3 cm Right Ovary: 2.9 x 1.8 x 1.4 cm Left Ovary: 3.2 x 1.4 x 1.4 cm 1. Uterus: Retroverted, heterogeneous isoechoic intramural mass along the anterior uterine fundus/kit dy measuring 2.3 x 1.9 x 2.1cm. This contains an internal cystic component measuring 9 mm. On the 02/2022 exam, there appears to have been a focal rounded masslike area in this region measuring 2.3 c m Small cervical nabothian cysts measuring up to 4 mm 2. Endometrium: wnl 3. Right Ovary: 2.2 cm hypoechoic structure without internal vascularity, probably a hemorrhagic cor pus luteum. 4. Left Ovary: 1.8 cm dominant follicle or functional cyst. 5. Bilateral Adnexa: No evident adnexal abnormality. 6. Posterior cul-de-sac: Mild to moderate cul-de-sac free fluid likely physiologic. IMPRESSION: 1. Retroverted uterus. The previous 2.3 cm solid appearing, intramural, round mass along the anterior fundus/body now shows greater heterogeneity and an internal cystic component measuring 9 mm. Differe ntial considerations include a degenerating fibroid and focal adenomyoma. Given these atypical change s, additional follow-up recommended. 2. Follicular changes in both ovaries. A 2.2 cm probable hemorrhagic corpus luteum in the right ovary . This can also be reassessed at follow-up. 3. Moderate cul-de-sac free fluid likely physiologic.
== END | disposition home or self-care (01) ==
LOC: RADUSWWP 12:23
PROVIDERS: ATTEND Obstetrics & Gynecology
DX: N83.02 Follicular cyst of left ovary (principal)
CPT/HCPCS: 76830; 76856

== ENCOUNTER → 2021-08-15 | Outpatient (CLI) | payer OTHER ==
[2021-08-15 22:27] LABS: Basophils # (A) 0.03 X 10*3/uL (0.00-0.10); Basophils % (A) 0.7 %; Eosinophils # (A) 0.12 X 10*3/uL (0.04-0.35); Eosinophils % (A) 2.9 %; HCT 40.7 % (37.2-46.3); HGB 13.2 g/dL (12.0-15.0); Immature Grans, Automated 0.5 %; Lymphocytes # (A) 1.73 X 10*3/uL (0.90-5.00); Lymphocytes % (A) 41.5 %; MCH 29.3 pg (27.0-32.0); MCHC 32.4 g/dL (32.0-37.0); MCV 90.2 fL (80.0-97.0); Mean Platelet Volume 9.9 fL (9.5-12.2); Monocytes % (A) 4.8 %; NRBC Per 100 WBC 0 /100 WBCS (0.0-0.0); Neutrophils # (A) 2.07 X 10*3/uL (1.80-7.70); Neutrophils % (A) 49.6 %; Platelet Count 277 X 10*3/uL (140-440); RBC 4.51 X 10*6/uL (4.10-5.20); RDW 11.6 % (11.5-14.5); WBC 4.17 X 10*3/uL (4.50-10.00)
[2021-08-15 22:49] LABS: African American GFR (CKD) 133.8 (60.0-200.0); Anion Gap 10.1 mmol/L (10.00-18.00); BUN/Creat Ratio 18.43 Ratio (12.00-20.00); Blood Urea Nitrogen 12.9 mg/dL (9.0-27.0); Calcium 8.9 mg/dL (8.7-10.3); Carbon Dioxide 24.9 mmol/L (20.0-27.5); Non-African American GFR(CKD) 115.4 (60.0-200.0); Potassium 4.1 mmol/L (3.5-5.5)
== END | disposition home or self-care (01) ==
LOC: LABPAT 14:16
PROVIDERS: ATTEND Obstetrics & Gynecology
DX: Z01.812 Encounter for preprocedural laboratory examination (principal)
CPT/HCPCS: 80048; 85025

== ENCOUNTER 2021-08-20 05:34 | Observation (INO) | payer OTHER ==
[2021-08-16 09:51] VITALS: BMI 21.9
[2021-08-20] MEDS ORDERED: DEXAMETHASONE SOD PHOSPHATE 4 MG/ML 1 ML VIAL IV ONE (05:58)
[2021-08-20] MEDS ORDERED: ONDANSETRON 4 MG/2 ML VIAL IVP ONE (05:58)
[2021-08-20] MEDS ORDERED: HYDROmorphone 0.5 MG/0.5 ML SYRINGE IVP PRN (05:58)
--- NOTE | 2021-08-20 06:13 | P.HPOB ---
History of Present Illness H&P Date: 08/20/21 Chief Complaint: pelvic pain, irreg bleeding 30 year old presents for TLH BS using da lio, possible ARPITA BSO, and diagnostic cystoscopy. She has tried multiple treatments for her painful menses and daily spotting with little to no help. Review of Systems All systems: negative Constitutional: Denies chills, Denies fever Eyes: denies blurred vision, denies pain Ears, nose, mouth and throat: Denies headache, Denies sore throat Cardiovascular: Denies chest pain, Denies shortness of breath Respiratory: Denies cough Gastrointestinal: Denies abdominal pain, Denies diarrhea, Denies nausea, Denies vomiting Genitourinary: Denies dysuria, Denies hematuria Musculoskeletal: Denies myalgias Integumentary: Denies pruritus, Denies rash Neurological: Denies numbness, Denies weakness Psychiatric: Denies anxiety, Denies depression Endocrine: Denies fatigue, Denies weight change Past Medical History Past Medical History: GERD/Reflux Additional Past Medical History / Comment(s): Gestational diabetes, Migraines History of Any Multi-Drug Resistant Organisms: None Reported Past Surgical History: Tubal Ligation Additional Past Surgical History / Comment(s): wisdom teeth removed Past Anesthesia/Blood Transfusion Reactions: No Reported Reaction Smoking Status: Never smoker - Past Family History Father History Unknown: Yes Family Medical History: Coronary Artery Disease (CAD), Deep Vein Thrombosis (DVT) Additional Family Medical History / Comment(s): Heartdisease Medications and Allergies Home Medications Medication Instructions Recorded Confirmed Type Sertraline [Zoloft] 50 mg PO DAILY 02/16/21 08/16/21 History Topiramate [Topamax] 50 mg PO BID 02/16/21 08/16/21 History Naratriptan HCl 1 mg PO DIRECTED 03/23/21 08/16/21 History Cyclobenzaprine [Flexeril] 10 mg PO TID PRN #15 tab 04/07/21 08/16/21 Rx Allergies Allergy/AdvReac Type Severity Reaction Status Date / Time Penicillins Allergy lip Verified 08/16/21 09:32 swelling Sulfa (Sulfonamide Allergy Rash/Hives Verified 08/16/21 09:32 Antibiotics) Exam Osteopathic Statement: *. No significant issues noted on an osteopathic structural exam other than those noted in the History and Physical/Consult. HEart: RRR Lungs: CTAB Abdomen: soft, nontender Extremeties: neg precious's Assessment and Plan (1) Dysmenorrhea Current Visit: Yes Status: Acute Code(s): N94.6 - DYSMENORRHEA, UNSPECIFIED SNOMED Code(s): 185436032 (2) Dysfunctional uterine bleeding Current Visit: Yes Status: Acute Code(s): N93.8 - OTHER SPECIFIED ABNORMAL UTERINE AND VAGINAL BLEEDING SNOMED Code(s): 73220933009662 Plan: 1. Total laparoscopic hysterectomy bilateral salpingectomy using da lio and diagnostic cystoscopy, possible ARPITA BSP
[2021-08-20] MEDS: LACTATED RINGERS 1,000 ML IV SCH (06:24)
[2021-08-20] MEDS ORDERED: MIDAZOLAM 2 MG/2 ML VIAL IVP ONE (06:59)
[2021-08-20] MEDS ORDERED: DEXAMETHASONE SOD PHOSPHATE 10 MG/ML 1 ML VIAL ONE (07:11)
[2021-08-20] MEDS ORDERED: KETOROLAC 15 MG/ML 1 ML VIAL ONE (07:11)
[2021-08-20] MEDS ORDERED: SODIUM CHLORIDE 0.9% (PF) 10 ML VIAL ONE (07:11)
[2021-08-20] MEDS ORDERED: PROPOFOL 10 MG/ML 20 ML VIAL IV ONE (07:11)
[2021-08-20] MEDS ORDERED: fentaNYL (PF) 50 MCG/ML 2 ML AMP ONE (07:11)
[2021-08-20] MEDS ORDERED: ROCURONIUM 10 MG/ML (5 ML VIAL) IV ONE (07:11)
[2021-08-20] MEDS ORDERED: ROPIVACAINE 5 MG/ML 30 ML VIAL ONE (07:11)
[2021-08-20] MEDS ORDERED: LIDOCAINE 2% INJ 20 MG/ML (2 ML VIAL) ONE (07:11)
[2021-08-20] MEDS ORDERED: NEOSTIGMINE 1 MG/ML 10 ML VIAL ONE (07:11)
[2021-08-20] MEDS ORDERED: GLYCOPYRROLATE 0.2 MG/ML 2 ML VIAL ONE (07:11)
[2021-08-20] MEDS ORDERED: BUPIVACAINE (PF) 0.25% 30 ML VIAL SQ ONE ×3 (08:01→08:41)
[2021-08-20] MEDS ORDERED: LACTATED RINGERS 1,000 ML IV ONE ×2 (08:32→09:45)
[2021-08-20] MEDS ORDERED: IBUPROFEN 600 MG TAB PO PRN (08:41)
[2021-08-20] MEDS ORDERED: SIMETHICONE 80 MG CHEWABLE PO PRN (08:41)
[2021-08-20] MEDS ORDERED: ZOLPIDEM 5 MG TAB PO PRN (08:41)
[2021-08-20] MEDS ORDERED: Acetaminophen-Codeine 300-30mg TAB PO PRN (08:41)
--- NOTE | 2021-08-20 08:41 | P.OP ---
Date of Procedure: 08/20/21 Preoperative Diagnosis: 1. dysmenorrhea 2. DUB Postoperative Diagnosis: 1. dysmenorrhea 2. DUB Procedure(s) Performed: Total laparoscopic hysterectomy bilateral salpingectomy using da Cal and diagnostic cystoscopy Anesthesia: KO Surgeon: Lady Santiago [employer] #1: Nichole Adams Estimated Blood Loss (ml): 50 IV fluids (ml): 600 Urine output (ml): 100 Pathology: other (Uterus, cervix, bilateral fallopian tubes) Condition: stable Disposition: PACU Operative Findings: Normal uterus, tubes, ovaries. Description of Procedure: Patient taken the operating room where general anesthesia was obtained without difficulty. She is prepped and draped in normal sterile fashion dorsal lithotomy position, legs placed in the Porfirio stirrups. Weighted speculum placed in the vagina and the anterior lip the cervix was grasped with single-tooth tenaculum. The uterus sounded to 6 cm and the cervix diameter was 2.5 cm. The appropriate manipulator tip and ring were placed on the Saige manipulator. The Saige manipulator was then placed in the uterus. Santana catheter was also placed. Attention was then turned to the abdomen and gloves were changed. A 5 mm supraumbilical incision was made the scalpel and a 5 mm optical trocar was placed under direct visualization. 10 cm to the right of this and 2 cm down a 5 mm incision was made and 8 mm da Cal port was placed under direct visualization. Same measurements on the opposite side of the patient's abdomen, the 5 mm incision was made and 8 mm da Cal port was placed under direct visualization. In the left upper quadrant a 10 mm incision was made and a 10 mm optical trocar was placed under direct visualization. The 5 mm optical trocar was then replaced with the 8 mm da Cal camera port. The robot was docked on patient's right side. The camera was introduced and then the monopolar curved scissor and [place] bipolar placed under direct visualization. I broke scrub and went to the physician console. The left mesosalpinx was cauterized with the [place] bipolar and cut with the monopolar curved scissors to free the left fallopian tube. The left fallopian tube was then delivered through the port. The left utero-ovarian ligament was cauterized with the [place] bipolar and cut with monopolar curved scissors. The left round ligament was cauterized with the [place] bipolar and cut with monopolar curved scissors. The posterior leaf of the broad ligament was taken down using the monopolar curved scissors. Anterior leaf of the broad ligament was then taken down using the monopolar curved scissors. The uterine artery was cauterized with the [place] bipolar and cut with monopolar curved scissors. The bladder flap was then started using the monopolar curved scissors. Attention was then turned to the right side of the patient's anatomy. The right mesosalpinx was cauterized with the [place] bipolar cut with monopolar curved scissors to free the right fallopian tube. The right fallopian tube was then delivered through the port. The right utero- ovarian ligament was cauterized with the [place] bipolar and cut with monopolar curved scissors. The right round ligament was cauterized with the [place] bipolar and cut with monopolar curved scissors. Posterior leaf of the broad ligament was taken down using the monopolar curved scissors and the anterior leaf was taken down using the monopolar curved scissors. The uterine artery was cauterized the [place] bipolar cut with monopolar curved scissors. The bladder flap was then finished on this side. Anterior colpotomy was made using the monopolar curved scissors. The rest of the uterus was from the vaginal cuff by following the ring around with the monopolar curved scissors through the uterosacral ligaments back to the anterior portion. Once the uterus and cervix were amputated they were pulled through the vaginal cuff. Hemostasis was assured. The instruments were changed for the Cardier forcep and the ale suture cut. The vaginal cuff was then closed using O stratafix barbed suture in a running fashion. Hemostasis was again assured and the pelvis was irrigated. All instruments were removed from the abdomen and the robot was undocked. I scrubbed back in to perform a cystoscopy. There were jets from both ureteral orifices. The abdominal incisions were closed with 4-0 Vicryl in a subcuticular fashion. Patient tolerated the procedure well, sponge and instrument counts correct 2 and she was taken to recovery room in stable condition condition
[2021-08-20] MEDS ORDERED: SUMAtriptan succinate 50 MG TAB PO PRN (08:45)
[2021-08-20] MEDS ORDERED: HYDROmorphone 0.5 MG/0.5 ML SYRINGE IVP ONE (09:08)
[2021-08-20] MEDS ORDERED: diphenhydrAMINE 50 MG/ML 1 ML VIAL IVP ONE (09:14)
[2021-08-20] MEDS: SENNOSIDES-DOCUSATE SODIUM 1 EACH TAB PO SCH ×2 (11:02→21:54)
[2021-08-20] MEDS: Acetaminophen-Codeine 300-30mg TAB PO PRN ×2 (11:15→18:11)
[2021-08-20] MEDS: SERTRALINE 50 MG TAB PO SCH (11:17)
[2021-08-20] MEDS: TOPIRAMATE 25 MG TAB PO SCH ×2 (11:18→21:54)
--- NOTE | 2021-08-20 12:22 | P.ANPRN ---
Procedure Note - Anesthesia - Nerve Block Performed Bilateral Erector Spinae Single Time Out Performed: Yes Date of Procedure: 08/20/21 Procedure Start Time: 06:58 Procedure Stop Time: 07:05 Location of Patient: PreOp Indication: Acute Post-Operative Pain, Requested by Surgeon Sedation Type: Sedate with meaningful contact maintained Preparation: Sterile Prep Position: Prone Needle Types: Pajunk Needle Gauge: 21 Ultrasound used to visualize needle placement: Yes Ultrasound used to observe medication spread: Yes Blood Aspirated: No Pain Paresthesia on Injection Noted: No Resistance on Injection: Normal Image Stored and Saved: Yes Events: Uneventful and Well Tolerated (ropi .5% 20cc plus ns 10 cc plus dexamethasone 4mg)
[2021-08-20] MEDS: KETOROLAC 15 MG/ML 1 ML VIAL IVP PRN ×2 (13:31→21:54)
[2021-08-20] MEDS ORDERED: ONDANSETRON 4 MG/2 ML VIAL IVP PRN (14:25)
[2021-08-21] MEDS: Acetaminophen-Codeine 300-30mg TAB PO PRN ×2 (00:19→06:42)
[2021-08-21] MEDS: KETOROLAC 15 MG/ML 1 ML VIAL IVP PRN (03:29)
[2021-08-21] MEDS: LACTATED RINGERS 1,000 ML IV SCH (06:43)
[2021-08-21 07:46] LABS: Basophils % (A) 0 %; Eosinophils % (A) 0 %; HCT 27.1 % (34.0-46.0); HGB 8.9 gm/dL (11.4-16.0); Lymphocytes # (A) 1.6 k/uL (1.0-4.8); Lymphocytes % (A) 19 %; MCH 30.3 pg (25.0-35.0); MCHC 32.7 g/dL (31.0-37.0); MCV 92.7 fL (80.0-100.0); Mean Platelet Volume 7.9; Monocytes # (A) 0.3 k/uL (0-1.0); Monocytes % (A) 3 %; Neutrophils % (A) 76 %; Platelet Count 231 k/uL (150-450); RBC 2.93 m/uL (3.80-5.40); RDW 12.5 % (11.5-15.5)
[2021-08-21] MEDS ORDERED: HYDROcodone/APAP 7.5-325MG 1 EACH TAB PO PRN (07:53)
--- NOTE | 2021-08-21 07:53 | P.DS ---
Providers Date of admission: 08/20/21 23:03 Expected date of discharge: 08/21/21 Attending physician: Lady Santiago Primary care physician: Daivd Ring - Discharge Diagnosis(es) (1) Dysmenorrhea Current Visit: Yes Status: Resolved (2) Dysfunctional uterine bleeding Current Visit: Yes Status: Resolved (3) S/P robot-assisted surgical procedure TLH BS Current Visit: Yes Status: Acute Hospital Course: Patient presented for total laparoscopic hysterectomy bilateral salpingectomy using da Cal. She underwent this procedure without complication. Postoperative course was uneventful. She denies nausea, vomiting, chest pain, shortness of breath or any calf pain. Patient will be discharged home day #1 in stable condition to follow-up with me in 3 weeks. Plan - Discharge Summary Discharge Rx Participant: Yes New Discharge Prescriptions: New Ibuprofen [Motrin] 600 mg PO Q6HR PRN #30 tab PRN Reason: Mild Pain Or Fever >= 100.5 HYDROcodone/APAP 7.5-325MG [[place] 7.5-325] 1 tab PO Q6HR PRN 3 Days #12 tab PRN Reason: Pain No Action Sertraline [Zoloft] 50 mg PO DAILY Topiramate [Topamax] 50 mg PO BID Naratriptan HCl 1 mg PO DIRECTED Cyclobenzaprine [Flexeril] 10 mg PO TID PRN #15 tab PRN Reason: Muscle Spasm Discharge Medication List Sertraline [Zoloft] 50 mg PO DAILY 02/16/21 [History] Topiramate [Topamax] 50 mg PO BID 02/16/21 [History] Naratriptan HCl 1 mg PO DIRECTED 03/23/21 [History] Cyclobenzaprine [Flexeril] 10 mg PO TID PRN #15 tab 04/07/21 [Rx] HYDROcodone/APAP 7.5-325MG [[place] 7.5-325] 1 tab PO Q6HR PRN 3 Days #12 tab 08/21/21 [Rx] Ibuprofen [Motrin] 600 mg PO Q6HR PRN #30 tab 08/21/21 [Rx] Follow up Appointment(s)/Referral(s): Lady Santiago DO [Doctor of Osteopathic Medicine] - 3 Weeks Discharge Disposition: HOME SELF-CARE
[2021-08-21] MEDS ORDERED: ACETAMINOPHEN TAB 325 MG TAB PO PRN (08:42)
[2021-08-21 09:08] VITALS: BP 115/75; PULSE 73; RESP 18; TEMP 98.2
[2021-08-21] MEDS: SERTRALINE 50 MG TAB PO SCH (09:23)
[2021-08-21] MEDS: SENNOSIDES-DOCUSATE SODIUM 1 EACH TAB PO SCH (09:23)
[2021-08-21] MEDS: TOPIRAMATE 25 MG TAB PO SCH (09:23)
== END 2021-08-21 10:30 | disposition home or self-care (01) ==
LOC: OR 05:34 → 4FBP 08:45 → OR 23:03 → 4FBP 23:03
PROVIDERS: ADMIT Obstetrics & Gynecology; ATTEND Obstetrics & Gynecology
DX: N72 Inflammatory disease of cervix uteri (principal); N87.0 Mild cervical dysplasia; N80.0 Endometriosis of uterus; N93.8 Other specified abnormal uterine and vaginal bleeding; K21.9 Gastro-esophageal reflux disease without esophagitis; Z86.32 Personal history of gestational diabetes; F32.A Depression, unspecified; M54.2 Cervicalgia; G43.909 Migraine, unspecified, not intractable, without status migrainosus; Z98.51 Tubal ligation status; Z98.890 Other specified postprocedural states; Z82.49 Family history of ischemic heart disease and other diseases of the circulatory system; Z79.899 Other long term (current) drug therapy; Z88.0 Allergy status to penicillin; Z88.2 Allergy status to sulfonamides
CPT/HCPCS: 58571; S2900; 64999; 81025; 85025; 86850; 86900; 86901; 88307

== ENCOUNTER 2021-08-26 00:44 | Inpatient (IN) | payer OTHER ==
[2021-08-26] MEDS ORDERED: SODIUM CHLORIDE 0.9% 500 ML 500 ML IV STA (02:15)
[2021-08-26] MEDS ORDERED: ACETAMINOPHEN TAB 325 MG TAB PO STA (02:15)
[2021-08-26] MEDS ORDERED: SODIUM CHLORIDE 0.9% 1,000 ML IV ONE (02:34)
--- NOTE | 2021-08-26 02:34 | ED ---
Fever HPI - General Chief Complaint: Fever Stated Complaint: post-op fever Time Seen by Provider: 08/26/21 02:15 Source: patient, family Mode of arrival: ambulatory Limitations: no limitations - History of Present Illness Initial Comments: This patient is a 30-year-old woman who presents to have evaluation of fever and chills. The patient states that that had developed tonight when she was given her from bed. Patient reports that she had a hysterectomy performed by Dr. Santiago on August 20. Hysterectomy was performed for ovarian cyst and dysfunction al bleeding. She states that the surgery seem to go without complication and she was doing fairly well at home until this morning. She states that she started having some painful urination this morning and had her get some cranberry juice which she took over the course the day without noticing much change. Patient denies abdominal pain. No chest pain, dyspnea, but she does have the occasional nonproductive cough that is been going on since the surgery. Patient states that she did have a course of codvid 19 infection 3 weeks ago Complaint: fever -: hour(s) Temperature Source: oral Associated Symptoms: chills Treatments Prior to Arrival: none - Related Data Home Medications Medication Instructions Recorded Confirmed Sertraline [Zoloft] 50 mg PO DAILY 02/16/21 08/26/21 Topiramate [Topamax] 50 mg PO BID 02/16/21 08/26/21 Naratriptan HCl 1 mg PO DAILY PRN 03/23/21 08/26/21 Previous Rx's Medication Instructions Recorded Cyclobenzaprine [Flexeril] 10 mg PO TID PRN #15 tab 04/07/21 Cephalexin [Keflex] 500 mg PO Q6HR 4 Days #16 cap 08/31/21 HYDROcodone/APAP 7.5-325MG [[place] 1 tab PO Q6HR PRN 3 Days #12 tab 08/31/21 7.5-325] Ibuprofen [Motrin] 600 mg PO Q6HR PRN #30 tab 08/31/21 Allergies Allergy/AdvReac Type Severity Reaction Status Date / Time Penicillins Allergy lip Verified 08/26/21 00:55 swelling Sulfa (Sulfonamide Allergy Rash/Hives Verified 08/26/21 00:55 Antibiotics) Review of Systems ROS Statement: Those systems with pertinent positive or pertinent negative responses have been documented in the HPI. ROS Other: All systems not noted in ROS Statement are negative. Constitutional: Reports: fever, chills Respiratory: Denies: cough, dyspnea Cardiovascular: Denies: chest pain, palpitations, edema Gastrointestinal: Denies: abdominal pain, nausea, vomiting, diarrhea Genitourinary: Reports: as per HPI, dysuria, frequency. Denies: hematuria Musculoskeletal: Denies: back pain Skin: Denies: rash Neurological: Denies: headache, weakness, numbness Past Medical History Past Medical History: GERD/Reflux Additional Past Medical History / Comment(s): Gestational diabetes, Migraines History of Any Multi-Drug Resistant Organisms: None Reported Past Surgical History: Hysterectomy, Tubal Ligation Additional Past Surgical History / Comment(s): wisdom teeth removed Past Anesthesia/Blood Transfusion Reactions: No Reported Reaction Past Psychological History: No Psychological Hx Reported Smoking Status: Never smoker Past Alcohol Use History: None Reported Past Drug Use History: None Reported - Past Family History Father History Unknown: Yes Family Medical History: Coronary Artery Disease (CAD), Deep Vein Thrombosis (DVT) Additional Family Medical History / Comment(s): Heartdisease General Exam Limitations: no limitations General appearance: alert, in no apparent distress Head exam: Present: atraumatic, normocephalic Eye exam: Present: normal appearance. Absent: scleral icterus, conjunctival injection ENT exam: Present: normal oropharynx Neck exam: Present: normal inspection, full ROM. Absent: meningismus, lymphadenopathy Respiratory exam: Present: normal lung sounds bilaterally. Absent: respiratory distress, wheezes, rales, rhonchi, stridor, accessory muscle use Cardiovascular Exam: Present: normal rhythm, tachycardia, normal heart sounds. Absent: systolic murmur, diastolic murmur, rubs, gallop GI/Abdominal exam: Present: soft, tenderness, normal bowel sounds. Absent: distended, guarding, rebound, rigid, mass, pulsatile mass, hernia Extremities exam: Present: normal inspection, normal capillary refill. Absent: pedal edema, calf tenderness Back exam: Present: normal inspection. Absent: CVA tenderness (R), CVA tenderness (L) Neurological exam: Present: alert Skin exam: Present: warm, dry, intact, normal color. Absent: rash Course Vital Signs 08/26/21 08/26/21 08/26/21 00:53 06:22 07:49 Temperature 101.1 F H 97.9 F 98.4 F Pulse Rate 134 H 92 78 Respiratory 20 18 18 Rate Blood Pressure 120/71 92/57 107/89 O2 Sat by Pulse 100 100 99 Oximetry Medical Decision Making - Lab Data Result diagrams: 08/29/21 23:10 08/27/21 05:34 Lab Results 08/26/21 08/26/21 08/26/21 Range/Units 03:29 03:29 03:29 WBC 8.7 (3.8-10.6) k/uL RBC 2.84 L (3.80-5.40) m/uL Hgb 8.7 L (11.4-16.0) gm/dL Hct 25.7 L (34.0-46.0) % MCV 90.5 (80.0-100.0) fL MCH 30.6 (25.0-35.0) pg MCHC 33.7 (31.0-37.0) g/dL RDW 12.8 (11.5-15.5) % Plt Count 380 (150-450) k/uL MPV 7.6 Neutrophils % 79 % Lymphocytes % 13 % Monocytes % 5 % Eosinophils % 2 % Basophils % 0 % Neutrophils # 6.8 (1.3-7.7) k/uL Lymphocytes # 1.1 (1.0-4.8) k/uL Monocytes # 0.5 (0-1.0) k/uL Eosinophils # 0.2 (0-0.7) k/uL Basophils # 0.0 (0-0.2) k/uL Hypochromasia Poikilocytosis Sodium 136 L (137-145) mmol/L Potassium 3.4 L (3.5-5.1) mmol/L Chloride 106 (98-107) mmol/L Carbon Dioxide 22 (22-30) mmol/L Anion Gap 8 mmol/L BUN 11 (7-17) mg/dL Creatinine 0.56 (0.52-1.04) mg/dL Est GFR (CKD-EPI)AfAm >90 (>60 ml/min/1.73 sqM) Est GFR (CKD-EPI)NonAf >90 (>60 ml/min/1.73 sqM) Glucose 113 H (74-99) mg/dL Plasma Lactic Acid [place] (0.7-2.0) mmol/L Calcium 8.6 (8.4-10.2) mg/dL Total Bilirubin 1.0 (0.2-1.3) mg/dL AST 24 (14-36) U/L ALT 21 (4-34) U/L Alkaline Phosphatase 66 (38-126) U/L Total Protein 7.0 (6.3-8.2) g/dL Albumin 3.8 (3.5-5.0) g/dL Urine Color Light Yellow Urine Appearance Clear (Clear) Urine pH 6.5 (5.0-8.0) Ur Specific [place] 1.004 (1.001-1.035) Urine Protein Negative (Negative) Urine Glucose (UA) Negative (Negative) Urine Ketones Negative (Negative) Urine Blood Small H (Negative) Urine Nitrite Negative (Negative) Urine Bilirubin Negative (Negative) Urine Urobilinogen <2.0 (<2.0) mg/dL Ur Leukocyte Esterase Negative (Negative) Urine RBC <1 (0-5) /hpf Urine WBC 3 (0-5) /hpf Ur Squamous Epith Cells 1 (0-4) /hpf Urine Bacteria Occasional H (None) /hpf 08/26/21 08/27/21 08/27/21 Range/Units 03:29 05:34 05:34 WBC 8.2 (3.8-10.6) k/uL RBC 2.62 L (3.80-5.40) m/uL Hgb 8.0 L (11.4-16.0) gm/dL Hct 24.0 L (34.0-46.0) % MCV 91.6 (80.0-100.0) fL MCH 30.7 (25.0-35.0) pg MCHC 33.6 (31.0-37.0) g/dL RDW 12.7 (11.5-15.5) % Plt Count 407 (150-450) k/uL MPV 8.2 Neutrophils % 80 % Lymphocytes % 10 % Monocytes % 7 % Eosinophils % 2 % Basophils % 0 % Neutrophils # 6.5 (1.3-7.7) k/uL Lymphocytes # 0.8 L (1.0-4.8) k/uL Monocytes # 0.6 (0-1.0) k/uL Eosinophils # 0.1 (0-0.7) k/uL Basophils # 0.0 (0-0.2) k/uL Hypochromasia Slight Poikilocytosis Sodium 138 (137-145) mmol/L Potassium 3.8 (3.5-5.1) mmol/L Chloride 110 H (98-107) mmol/L Carbon Dioxide 22 (22-30) mmol/L Anion Gap 6 mmol/L BUN 10 (7-17) mg/dL Creatinine 0.54 (0.52-1.04) mg/dL Est GFR (CKD-EPI)AfAm >90 (>60 ml/min/1.73 sqM) Est GFR (CKD-EPI)NonAf >90 (>60 ml/min/1.73 sqM) Glucose 108 H (74-99) mg/dL Plasma Lactic Acid [place] 0.5 L (0.7-2.0) mmol/L Calcium 7.7 L (8.4-10.2) mg/dL Total Bilirubin (0.2-1.3) mg/dL AST (14-36) U/L ALT (4-34) U/L Alkaline Phosphatase (38-126) U/L Total Protein (6.3-8.2) g/dL Albumin (3.5-5.0) g/dL Urine Color Urine Appearance (Clear) Urine pH (5.0-8.0) Ur Specific [place] (1.001-1.035) Urine Protein (Negative) Urine Glucose (UA) (Negative) Urine Ketones (Negative) Urine Blood (Negative) Urine Nitrite (Negative) Urine Bilirubin (Negative) Urine Urobilinogen (<2.0) mg/dL Ur Leukocyte Esterase (Negative) Urine RBC (0-5) /hpf Urine WBC (0-5) /hpf Ur Squamous Epith Cells (0-4) /hpf Urine Bacteria (None) /hpf 08/27/21 08/28/21 Range/Units 10:11 09:58 WBC 10.0 6.6 (3.8-10.6) k/uL RBC 2.56 L 2.29 L (3.80-5.40) m/uL Hgb 7.7 L 7.0 L (11.4-16.0) gm/dL Hct 23.3 L 21.2 L (34.0-46.0) % MCV 90.7 92.2 (80.0-100.0) fL MCH 30.2 30.4 (25.0-35.0) pg MCHC 33.3 33.0 (31.0-37.0) g/dL RDW 12.6 13.2 (11.5-15.5) % Plt Count 429 369 (150-450) k/uL MPV 7.6 8.5 Neutrophils % 88 % Lymphocytes % 6 % Monocytes % 4 % Eosinophils % 1 % Basophils % 0 % Neutrophils # 8.8 H (1.3-7.7) k/uL Lymphocytes # 0.6 L (1.0-4.8) k/uL Monocytes # 0.4 (0-1.0) k/uL Eosinophils # 0.1 (0-0.7) k/uL Basophils # 0.0 (0-0.2) k/uL Hypochromasia Slight Poikilocytosis Slight Sodium (137-145) mmol/L Potassium (3.5-5.1) mmol/L Chloride (98-107) mmol/L Carbon Dioxide (22-30) mmol/L Anion Gap mmol/L BUN (7-17) mg/dL Creatinine (0.52-1.04) mg/dL Est GFR (CKD-EPI)AfAm (>60 ml/min/1.73 sqM) Est GFR (CKD-EPI)NonAf (>60 ml/min/1.73 sqM) Glucose (74-99) mg/dL Plasma Lactic Acid [place] (0.7-2.0) mmol/L Calcium (8.4-10.2) mg/dL Total Bilirubin (0.2-1.3) mg/dL AST (14-36) U/L ALT (4-34) U/L Alkaline Phosphatase (38-126) U/L Total Protein (6.3-8.2) g/dL Albumin (3.5-5.0) g/dL Urine Color Urine Appearance (Clear) Urine pH (5.0-8.0) Ur Specific [place] (1.001-1.035) Urine Protein (Negative) Urine Glucose (UA) (Negative) Urine Ketones (Negative) Urine Blood (Negative) Urine Nitrite (Negative) Urine Bilirubin (Negative) Urine Urobilinogen (<2.0) mg/dL Ur Leukocyte Esterase (Negative) Urine RBC (0-5) /hpf Urine WBC (0-5) /hpf Ur Squamous Epith Cells (0-4) /hpf Urine Bacteria (None) /hpf Disposition Clinical Impression: Fever Disposition: ADMITTED IP TO THIS HOSP Condition: Good Is patient prescribed a controlled substance at d/c from ED?: No Decision Time: 05:40
[2021-08-26] MEDS ORDERED: HYDROmorphone 1 MG/ML 1 ML SYRINGE IVP STA (03:36)
[2021-08-26 03:45] LABS: Basophils % (A) 0 %; Eosinophils # (A) 0.2 k/uL (0-0.7); Eosinophils % (A) 2 %; HCT 25.7 % (34.0-46.0); HGB 8.7 gm/dL (11.4-16.0); Lymphocytes # (A) 1.1 k/uL (1.0-4.8); Lymphocytes % (A) 13 %; MCH 30.6 pg (25.0-35.0); MCHC 33.7 g/dL (31.0-37.0); MCV 90.5 fL (80.0-100.0); Mean Platelet Volume 7.6; Monocytes # (A) 0.5 k/uL (0-1.0); Monocytes % (A) 5 %; Neutrophils # (A) 6.8 k/uL (1.3-7.7); Neutrophils % (A) 79 %; Platelet Count 380 k/uL (150-450); RBC 2.84 m/uL (3.80-5.40); RDW 12.8 % (11.5-15.5); WBC 8.7 k/uL (3.8-10.6)
[2021-08-26 03:48] LABS: Appearance,Urine Clear (Clear); Bacteria,Urine Occasional /hpf; Bilirubin,Urine Negative (Negative); Blood,Urine Small (Negative); Color,Urine Light Yellow; Glucose,Urine (UA) Negative (Negative); Ketones,Urine Negative (Negative); Leukocyte Esterase,Urine Negative (Negative); Nitrite,Urine Negative (Negative); PH, Urine 6.5 (5.0-8.0); Protein,Urine Negative (Negative); RBC,Urine <1 /hpf (0-5); Specific Gravity,Urine 1.004 (1.001-1.035); Squamous Epithelial Cell,Urine 1 /hpf (0-4); Urobilinogen,Urine <2.0 mg/dL (<2.0); WBC,Urine 3 /hpf (0-5)
[2021-08-26 03:58] LABS: ALT 21 U/L (4-34); AST 24 U/L (14-36); African American GFR (CKD) >90 (>60 ml/min/1.73 sqM); Albumin 3.8 g/dL (3.5-5.0); Alkaline Phosphatase 66 U/L (38-126); Anion Gap 8 mmol/L; Blood Urea Nitrogen 11 mg/dL (7-17); Calcium 8.6 mg/dL (8.4-10.2); Carbon Dioxide 22 mmol/L (22-30); Chloride 106 mmol/L (98-107); Glucose 113 mg/dL (74-99); Non-African American GFR(CKD) >90 (>60 ml/min/1.73 sqM); Potassium 3.4 mmol/L (3.5-5.1); Sodium 136 mmol/L (137-145)
--- NOTE | 2021-08-26 05:11 | CT ---
EXAM: CT Abdomen and Pelvis With Intravenous Contrast CLINICAL HISTORY: ITS.REASON CT Reason: post-surgical pain/fever TECHNIQUE: Axial computed tomography images of the abdomen and pelvis with intravenous contrast. CTDI is 15.07 mGy and DLP is 649.5 mGy-cm. This CT exam was performed using one or more of the following dose reduction techniques: automated exposure control, adjustment of the mA and/or kV according to patient size, and/or use of iterative reconstruction technique. COMPARISON: 03/23/2021 FINDINGS: Lung bases: Unremarkable. No mass. No consolidation. ABDOMEN: Liver: Unremarkable. No mass. Gallbladder and bile ducts: Unremarkable. No calcified stones. No ductal dilation. Pancreas: Unremarkable. No mass. No ductal dilation. Spleen: Unremarkable. No splenomegaly. Adrenals: Unremarkable. No mass. Kidneys and ureters: Unremarkable. No solid mass. No hydronephrosis. Stomach and bowel: Unremarkable. No obstruction. No mucosal thickening. PELVIS: Appendix: No findings to suggest acute appendicitis. Bladder: Unremarkable. No mass. Reproductive: 3.8 cm right ovarian cystic collection with peripheral enhancement. Status post hysterectomy. ABDOMEN and PELVIS: Intraperitoneal space: No free air. Moderate intermediate density pelvic fluid consistent with hemorrhage. Trace perihepatic and perisplenic hemorrhage. Bones/joints: No acute fracture. No dislocation. Soft tissues: Unremarkable. Vasculature: Unremarkable. No abdominal aortic aneurysm. Lymph nodes: Unremarkable. No enlarged lymph nodes. IMPRESSION: 1. Moderate intermediate density pelvic fluid with no significant peripheral rim enhancement consistent with hemorrhage. Trace perihepatic and perisplenic hemorrhage. 2. Status post hysterectomy. 3.8 cm right-sided adnexal cystic collection which may represent an ovarian cyst or small pelvic abscess. Ultrasound may be obtained for more detailed evaluation of clinically indicated.
--- NOTE | 2021-08-26 05:17 | XR ---
EXAM: XR Chest, 1 View CLINICAL HISTORY: ITS.REASON XR Reason: fever TECHNIQUE: Frontal view of the chest. COMPARISON: 02/16/2021 FINDINGS: Lungs: Unremarkable. No consolidation. The pulmonary vasculature demonstrates no significant radiographic abnormality. Pleural space: Unremarkable. No pneumothorax. No large pleural effusion. Heart: Unremarkable. No cardiomegaly. Mediastinum: The mediastinal contours are stable. The trachea is midline. Bones/joints: Unremarkable. IMPRESSION: No acute cardiopulmonary process or significant alteration from the previous examination.
[2021-08-26] MEDS ORDERED: NALOXONE 0.4 MG/ML 1 ML VIAL IV PRN (05:46)
[2021-08-26] MEDS ORDERED: CEFEPIME 2 GM in SODIUM CHLORIDE 0.9% 100 ML IVPB STA (05:49)
[2021-08-26] MEDS: SODIUM CHLORIDE 0.9% 1,000 ML IV SCH ×2 (07:05→16:26)
[2021-08-26] MEDS: SERTRALINE 50 MG TAB PO SCH (09:13)
[2021-08-26] MEDS: TOPIRAMATE 25 MG TAB PO SCH ×2 (09:13→20:21)
--- NOTE | 2021-08-26 12:13 | P.HPOB ---
History of Present Illness H&P Date: 08/26/21 Chief Complaint: Abdominal pain, fever This is a 30-year-old female who recently underwent a total laparoscopic hysterectomy with bilateral salpingectomy with da Cal by Dr. Santiago on 08/13/2021. She began having fevers on Friday night. She stated her fever at home was up to 102 and on arrival she had a fever of 101.1. She did state she had started to have some pressure and burning with urination earlier in the day. She states she hasn't had very many bowel movements and she has been trying not to strain. She denied any chest discomfort or cough. Interestingly she did have a COVID-19 approximately 3 weeks ago. Computed tomography scan was performed and did show approximately 3.8 cm right adnexal cystic area versus small abscess and some small amount of free fluid versus hemorrhage. Her hemoglobin was stable from immediately postoperative. Immediately postoperative it was 8.9 and did drop to 8.7. Her white count is 8.7. Urinalysis is unremarkable. She is admitted for IV antibiotics and pain control. Review of Systems Constitutional: Reports chills, Reports fever Eyes: denies blurred vision, denies pain Ears, nose, mouth and throat: Denies headache, Denies sore throat Cardiovascular: Denies chest pain, Denies shortness of breath Respiratory: Denies cough Gastrointestinal: Reports abdominal pain, Reports constipation, Denies nausea, Denies vomiting Genitourinary: Reports pelvic pain (Lower abdominal cramping type pain), Reports urgency, Denies abnormal vaginal bleeding Musculoskeletal: Denies myalgias Integumentary: Denies pruritus, Denies rash Neurological: Denies numbness, Denies weakness Past Medical History Past Medical History: GERD/Reflux Additional Past Medical History / Comment(s): Gestational diabetes, Migraines History of Any Multi-Drug Resistant Organisms: None Reported Past Surgical History: Hysterectomy, Tubal Ligation Additional Past Surgical History / Comment(s): wisdom teeth removed Past Anesthesia/Blood Transfusion Reactions: No Reported Reaction Past Psychological History: No Psychological Hx Reported Smoking Status: Never smoker Past Alcohol Use History: None Reported Past Drug Use History: None Reported - Past Family History Father History Unknown: Yes Family Medical History: Coronary Artery Disease (CAD), Deep Vein Thrombosis (DVT) Additional Family Medical History / Comment(s): Heartdisease Medications and Allergies Home Medications Medication Instructions Recorded Confirmed Type Sertraline [Zoloft] 50 mg PO DAILY 02/16/21 08/26/21 History Topiramate [Topamax] 50 mg PO BID 02/16/21 08/26/21 History Naratriptan HCl 1 mg PO DAILY PRN 03/23/21 08/26/21 History Cyclobenzaprine [Flexeril] 10 mg PO TID PRN #15 tab 04/07/21 08/26/21 Rx HYDROcodone/APAP 7.5-325MG [[place] 1 tab PO Q6HR PRN 3 Days #12 tab 08/21/21 08/26/21 Rx 7.5-325] Ibuprofen [Motrin] 600 mg PO Q6HR PRN #30 tab 08/21/21 08/26/21 Rx Allergies Allergy/AdvReac Type Severity Reaction Status Date / Time Penicillins Allergy lip Verified 08/26/21 00:55 swelling Sulfa (Sulfonamide Allergy Rash/Hives Verified 08/26/21 00:55 Antibiotics) Exam Osteopathic Statement: *. No significant issues noted on an osteopathic structural exam other than those noted in the History and Physical/Consult. Vital Signs Temp Pulse Pulse Resp BP BP Pulse Ox 08/26/21 08:30 97.5 F L 97 16 102/70 100 08/26/21 07:49 98.4 F 78 18 107/89 99 08/26/21 06:22 97.9 F 92 18 92/57 100 08/26/21 00:53 101.1 F H 134 H 20 120/71 100 Intake and Output 08/25/21 08/26/21 08/26/21 22:59 06:59 14:59 Other: Voiding Method Toilet Weight 54.431 kg 54.431 kg Gen.: Well-developed well-nourished female in mild distress due to pain Heart: Regular rate and rhythm Lungs: Clear to auscultation bilaterally - OBG Physical Exam Abdomen: Incisions are intact with some mild ecchymosis around the incision sites. Abdomen: bowel sounds normal Abdomen detail: right lower quadrant: tenderness (Tenderness is noted along her lower abdomen with some guarding but no rebound), left lower quadrant: tenderness Results Result Diagrams: 08/26/21 03:29 08/26/21 03:29 Abnormal Lab Results - Last 24 Hours (Table) 08/26/21 08/26/21 08/26/21 Range/Units 03:29 03:29 03:29 RBC 2.84 L (3.80-5.40) m/uL Hgb 8.7 L (11.4-16.0) gm/dL Hct 25.7 L (34.0-46.0) % Sodium 136 L (137-145) mmol/L Potassium 3.4 L (3.5-5.1) mmol/L Glucose 113 H (74-99) mg/dL Plasma Lactic Acid [place] (0.7-2.0) mmol/L Urine Blood Small H (Negative) Urine Bacteria Occasional H (None) /hpf 08/26/21 Range/Units 03:29 RBC (3.80-5.40) m/uL Hgb (11.4-16.0) gm/dL Hct (34.0-46.0) % Sodium (137-145) mmol/L Potassium (3.5-5.1) mmol/L Glucose (74-99) mg/dL Plasma Lactic Acid [place] 0.5 L (0.7-2.0) mmol/L Urine Blood (Negative) Urine Bacteria (None) /hpf Assessment and Plan (1) Fever of undetermined origin Current Visit: Yes Status: Acute Code(s): R50.9 - FEVER, UNSPECIFIED SNOMED Code(s): 6801932 (2) S/P robot-assisted surgical procedure Current Visit: No Status: Acute Code(s): Z98.890 - OTHER SPECIFIED POSTPROCEDURAL STATES SNOMED Code(s): 617735866 Plan: Will continue empiric IV antibiotics for possible abscess. Will obtain pelvic ultrasound. We'll treat her pain. Continue with close observation.
[2021-08-26] MEDS: HYDROmorphone 1 MG/ML 1 ML SYRINGE IVP PRN ×3 (12:18→20:22)
[2021-08-26] MEDS ORDERED: ONDANSETRON 4 MG/2 ML VIAL IVP PRN (13:20)
--- NOTE | 2021-08-26 14:54 | US ---
EXAMINATION TYPE: US pelvic complete DATE OF EXAM: 08/26/2021 COMPARISON: NONE CLINICAL HISTORY: Abdominal pain, possible abscess. Pain, possible abscess. Pt had hysterectomy on . Patient states she has both ovaries still. Hx tubal ligation, adenomyosis, 1 miscarriage. . TECHNIQUE: Transabdominal (TA). Transabdominal sonographic images of the pelvis were acquired. Tra nsvaginal sonographic images were deferred per Dr. Adams. Date of LMP: EXAM MEASUREMENTS: Right Ovary: Not definitely identified, see below. Left Ovary: Not identified 1. Uterus: Surgically absent Complex area seen midline pelvis: 6.9 x 10.6 x 9.3 cm. 2. Endometrium: - 3. Right Ovary: Not definitely identified. Possible right ovarian tissue seen that connects to compl ex area measured measuring 4.3 cm in transverse, cannot definitely see borders in sagittal. 4. Left Ovary: Not identified. Spectral, color and waveform doppler imaging shows arterial and venous flow within the complex area measured. Flow also shown within possible right ovarian tissue shown. Left ovary not identified. 5. Bilateral Adnexa: Complex area seen midline extends into the bilateral adnexa. IMPRESSION: There is large complex avascular pelvic mass. There is cystic component. Follow-up is recommended. T his could be hemorrhage or abscess in this patient with recent hysterectomy.
[2021-08-26] MEDS: CEFEPIME 2 GM in SODIUM CHLORIDE 0.9% 100 ML IVPB SCH (16:20)
[2021-08-26] MEDS: ACETAMINOPHEN TAB 325 MG TAB PO PRN (18:11)
[2021-08-26] MEDS: IBUPROFEN 600 MG TAB PO PRN (21:53)
[2021-08-27] MEDS: CEFEPIME 2 GM in SODIUM CHLORIDE 0.9% 100 ML IVPB SCH ×3 (00:44→15:44)
[2021-08-27] MEDS: SODIUM CHLORIDE 0.9% 1,000 ML IV SCH ×4 (00:45→21:17)
[2021-08-27] MEDS: HYDROmorphone 1 MG/ML 1 ML SYRINGE IVP PRN ×5 (00:51→20:15)
[2021-08-27 06:01] LABS: Basophils % (A) 0 %; Eosinophils # (A) 0.1 k/uL (0-0.7); Eosinophils % (A) 2 %; Hypochromasia Slight; Lymphocytes # (A) 0.8 k/uL (1.0-4.8); Lymphocytes % (A) 10 %; MCH 30.7 pg (25.0-35.0); MCHC 33.6 g/dL (31.0-37.0); MCV 91.6 fL (80.0-100.0); Mean Platelet Volume 8.2; Monocytes # (A) 0.6 k/uL (0-1.0); Monocytes % (A) 7 %; Neutrophils # (A) 6.5 k/uL (1.3-7.7); Neutrophils % (A) 80 %; Platelet Count 407 k/uL (150-450); RBC 2.62 m/uL (3.80-5.40); RDW 12.7 % (11.5-15.5); WBC 8.2 k/uL (3.8-10.6)
[2021-08-27 06:12] LABS: African American GFR (CKD) >90 (>60 ml/min/1.73 sqM); Anion Gap 6 mmol/L; Blood Urea Nitrogen 10 mg/dL (7-17); Calcium 7.7 mg/dL (8.4-10.2); Carbon Dioxide 22 mmol/L (22-30); Chloride 110 mmol/L (98-107); Glucose 108 mg/dL (74-99); Non-African American GFR(CKD) >90 (>60 ml/min/1.73 sqM); Potassium 3.8 mmol/L (3.5-5.1); Sodium 138 mmol/L (137-145)
[2021-08-27] MEDS: SERTRALINE 50 MG TAB PO SCH (08:07)
[2021-08-27] MEDS: TOPIRAMATE 25 MG TAB PO SCH ×2 (08:07→19:09)
--- NOTE | 2021-08-27 08:54 | P.PN ---
Progress Note - Text Progress Note Date: 08/27/21 Status post total laparoscopic hysterectomy bilateral salpingectomy using da Cal postop day #7 Patient was admitted after her pain started getting much worse on Friday, 5 days after surgery. She was found to have an ovarian cyst on the right and a complex fluid collection in the midpelvis, possible abscess versus hemorrhage. Patient does not have a white count though she does have a fever on and off. My thoughts are leaning more towards a hematoma inside of her pelvis. This is consistent with her new finding today of some vaginal bleeding when she moves around to much. Her hemoglobin is stable at believe that the blood is coming from the collection inside of her pelvis and there is no active bleeding present. The vital sign status she's tachycardic I took her pulse myself and its only 85. Heart: Regular rate and rhythm Lungs: Clear to auscultation bilaterally Abdomen soft, nontender, nondistended Extremities: Negative Homans sign Assessment 1 status post laparoscopic hysterectomy bilateral salpingectomy using da Cal postop day #7 2. Pelvic hematoma 3. Anemia due to acute blood loss Plan 1. Continue IV antibiotics 2. IV pain control 3. I will come again this afternoon to assess her bleeding as she has artificial and with the pads from this morning.
[2021-08-27] MEDS: DOCUSATE 100 MG CAP PO SCH ×2 (09:09→19:09)
[2021-08-27 10:53] LABS: Basophils % (A) 0 %; Eosinophils # (A) 0.1 k/uL (0-0.7); Eosinophils % (A) 1 %; HCT 23.3 % (34.0-46.0); HGB 7.7 gm/dL (11.4-16.0); Lymphocytes # (A) 0.6 k/uL (1.0-4.8); Lymphocytes % (A) 6 %; MCH 30.2 pg (25.0-35.0); MCHC 33.3 g/dL (31.0-37.0); MCV 90.7 fL (80.0-100.0); Mean Platelet Volume 7.6; Monocytes # (A) 0.4 k/uL (0-1.0); Monocytes % (A) 4 %; Neutrophils # (A) 8.8 k/uL (1.3-7.7); Neutrophils % (A) 88 %; Platelet Count 429 k/uL (150-450); RBC 2.56 m/uL (3.80-5.40); RDW 12.6 % (11.5-15.5)
[2021-08-27] MEDS: KETOROLAC 15 MG/ML 1 ML VIAL IVP SCH ×2 (11:49→19:09)
[2021-08-27] MEDS: ACETAMINOPHEN TAB 325 MG TAB PO PRN (19:33)
[2021-08-28] MEDS: KETOROLAC 15 MG/ML 1 ML VIAL IVP SCH ×4 (00:16→18:02)
[2021-08-28] MEDS: CEFEPIME 2 GM in SODIUM CHLORIDE 0.9% 100 ML IVPB SCH ×3 (00:17→16:00)
[2021-08-28] MEDS: HYDROmorphone 1 MG/ML 1 ML SYRINGE IVP PRN ×5 (03:35→20:08)
[2021-08-28] MEDS: SODIUM CHLORIDE 0.9% 1,000 ML IV SCH ×3 (04:31→20:09)
[2021-08-28] MEDS: CLINDAMYCIN 600 MG in DEXTROSE 5% IN WATER 50 ML IVPB SCH ×4 (07:53→15:07)
--- NOTE | 2021-08-28 08:05 | P.PN ---
Progress Note - Text Progress Note Date: 08/28/21 Pt seen and examined at bedside. Her hemoglobin did drop a little more yesterday, I would like to see what it is today before I make the decision of transfusion or not. Pt is still tachycardic and had a fever of 102 last night. I added clindamycin to the cephalosporin she is already receiving. She is having some vaginal bleeding, dark red to bright red. Her pain is still requiring medication through the IV. VSS Heart: reg tachy Lungs: CTAB Abdomen: soft, nondistended, ecchymosis around incisions Extremetiees: neg precious's A1. S/P TLH BS with da lio POD #8 2. acute blood loss anemia with suspected blood collection in her pelvis causing pain P1. check hgb and likely transfuse one unit, discussed with pt 2. start clindamycin today
[2021-08-28] MEDS: SERTRALINE 50 MG TAB PO SCH (08:58)
[2021-08-28] MEDS: TOPIRAMATE 25 MG TAB PO SCH ×2 (08:58→20:08)
[2021-08-28] MEDS: DOCUSATE 100 MG CAP PO SCH ×2 (08:58→20:08)
[2021-08-28 10:22] LABS: HCT 21.2 % (34.0-46.0); Hypochromasia Slight; MCH 30.4 pg (25.0-35.0); MCV 92.2 fL (80.0-100.0); Mean Platelet Volume 8.5; Platelet Count 369 k/uL (150-450); Poikilocytosis Slight; RBC 2.29 m/uL (3.80-5.40); RDW 13.2 % (11.5-15.5); WBC 6.6 k/uL (3.8-10.6)
[2021-08-28] MEDS: ACETAMINOPHEN TAB 325 MG TAB PO PRN (20:08)
[2021-08-29] MEDS: KETOROLAC 15 MG/ML 1 ML VIAL IVP SCH ×5 (00:16→23:06)
[2021-08-29] MEDS: HYDROmorphone 1 MG/ML 1 ML SYRINGE IVP PRN ×6 (00:17→21:20)
[2021-08-29] MEDS: CLINDAMYCIN 600 MG in DEXTROSE 5% IN WATER 50 ML IVPB SCH ×8 (00:18→22:34)
[2021-08-29] MEDS: CEFEPIME 2 GM in SODIUM CHLORIDE 0.9% 100 ML IVPB SCH ×4 (01:31→23:46)
[2021-08-29] MEDS: SODIUM CHLORIDE 0.9% 1,000 ML IV SCH ×3 (05:40→18:52)
[2021-08-29] MEDS: TOPIRAMATE 25 MG TAB PO SCH ×2 (07:52→19:07)
[2021-08-29] MEDS: DOCUSATE 100 MG CAP PO SCH ×2 (07:52→19:07)
[2021-08-29] MEDS: SERTRALINE 50 MG TAB PO SCH (07:52)
--- NOTE | 2021-08-29 09:51 | US ---
EXAMINATION TYPE: US pelvic complete DATE OF EXAM: 08/29/2021 COMPARISON: CT & US CLINICAL HISTORY: pelvic hematoma and pain. Recent hysterectomy- pt having pelvic pain and recently s tarted having vaginal bleeding- recent abnormal CT & US TECHNIQUE: Transabdominal (TA). Transabdominal sonographic images of the pelvis were acquired. EXAM MEASUREMENTS: Right Ovary: 4.8 x 3.6 x 3.6 cm Left Ovary: 3.5 x 2.2 x 3.2 cm 1. Uterus: Surgically absent 2. Endometrium: Surgically absent 3. Right Ovary: Complex lesion= 3.8 x 2.6 x 2.9 cm 4. Left Ovary: wnl Spectral, color and waveform doppler imaging shows good arterial and venous flow within the ovaries ; there is no evidence for ovarian torsion. Large, complex mass midline pelvis, similar to size and appearance to prior ultrasound= 10.8 x 6.0 x 9.8 cm IMPRESSION: 1. Persistent large complex pelvic mass measuring 10.8 cm. There are hematoma or abscess. 2. A complex 3.8 cm right ovarian lesion likely clinically. Differential diagnosis includes cyst, abs cess or cystic neoplasm.
[2021-08-29 10:46] LABS: HCT 24.8 % (37.2-46.3); HGB 7.8 g/dL (12.0-15.0); MCH 28.2 pg (27.0-32.0); MCHC 31.5 g/dL (32.0-37.0); MCV 89.5 fL (80.0-97.0); Mean Platelet Volume 9.6 fL (9.5-12.2); NRBC Per 100 WBC 0 /100 WBCS (0.0-0.0); Platelet Count 359 X 10*3/uL (140-440); RBC 2.77 X 10*6/uL (4.10-5.20); RDW 13.1 % (11.5-14.5); WBC 6.74 X 10*3/uL (4.50-10.00)
--- NOTE | 2021-08-29 13:25 | P.PN ---
Progress Note - Text Progress Note Date: 08/29/21 Status post TLH and BS using da Cal postop day #9 Patient was afebrile last night, T-max 100.0 at 6 PM. She did get 1 unit of packed red blood cells yesterday when her hemoglobin came back at 7. Her hemoglobin today is 7.8. Her tachycardia is improved but still present. I will give her 1 more unit of packed red blood cells. Did not her ultrasound today to check on the hematoma which seems unchanged though she is having vaginal bleeding. Exam today reveals an intact vaginal cuff, maybe one hole in the center that is 0.5 cm. No active bleeding in the vagina. I discussed with the patient the possibility of taking her to the operating room tomorrow if she does not have a fever tonight. I would like to drain the hematoma vaginally under anesthesia. As long as it is just hematoma and it doesn't look like an abscess I will then go in laparoscopically to ensure that her bleeding is resolved.
[2021-08-29 23:30] LABS: HCT 28.8 % (34.0-46.0); Hypochromasia Slight; MCH 29.7 pg (25.0-35.0); MCHC 32.9 g/dL (31.0-37.0); MCV 90.3 fL (80.0-100.0); Mean Platelet Volume 8.4; Platelet Count 413 k/uL (150-450); Poikilocytosis Slight; RBC 3.19 m/uL (3.80-5.40); RDW 13.5 % (11.5-15.5); WBC 6.5 k/uL (3.8-10.6)
[2021-08-29 23:31] LABS: HGB 9.5 gm/dL (11.4-16.0)
[2021-08-30] MEDS: SODIUM CHLORIDE 0.9% 1,000 ML IV SCH ×3 (03:41→15:39)
[2021-08-30] MEDS: HYDROmorphone 1 MG/ML 1 ML SYRINGE IVP PRN ×3 (04:25→19:53)
[2021-08-30] MEDS: KETOROLAC 15 MG/ML 1 ML VIAL IVP SCH ×2 (05:18→12:49)
[2021-08-30] MEDS: CLINDAMYCIN 600 MG in DEXTROSE 5% IN WATER 50 ML IVPB SCH ×6 (07:20→23:55)
[2021-08-30] MEDS: DOCUSATE 100 MG CAP PO SCH ×2 (07:24→20:55)
[2021-08-30] MEDS: TOPIRAMATE 25 MG TAB PO SCH ×2 (07:24→20:56)
[2021-08-30] MEDS: SERTRALINE 50 MG TAB PO SCH (07:24)
[2021-08-30] MEDS ORDERED: LACTATED RINGERS 1,000 ML IV SCH (08:17)
[2021-08-30] MEDS: CEFEPIME 2 GM in SODIUM CHLORIDE 0.9% 100 ML IVPB SCH ×2 (08:38→16:58)
[2021-08-30] MEDS ORDERED: IV FLUID CONTINUATION 1,000 ML IV ONE (10:35)
[2021-08-30] MEDS ORDERED: ONDANSETRON 4 MG/2 ML VIAL IVP ONE (10:40)
[2021-08-30] MEDS ORDERED: DEXAMETHASONE SOD PHOSPHATE 4 MG/ML 1 ML VIAL IVP ONE (10:40)
[2021-08-30] MEDS ORDERED: SUCCINYLCHOLINE CHLORIDE 100 MG/5 ML SYR IV ONE (11:22)
[2021-08-30] MEDS ORDERED: LIDOCAINE 4% LTA KIT (4 ML) TOPICAL ONE (11:22)
[2021-08-30] MEDS ORDERED: ROCURONIUM 10 MG/ML (5 ML VIAL) IV ONE (11:22)
[2021-08-30] MEDS ORDERED: fentaNYL (PF) 50 MCG/ML 2 ML AMP ONE (11:22)
[2021-08-30] MEDS ORDERED: LIDOCAINE 2% INJ 20 MG/ML (2 ML VIAL) ONE (11:22)
[2021-08-30] MEDS ORDERED: GLYCOPYRROLATE 0.2 MG/ML 2 ML VIAL ONE (11:22)
[2021-08-30] MEDS ORDERED: NEOSTIGMINE 1 MG/ML 10 ML VIAL ONE (11:22)
[2021-08-30] MEDS ORDERED: MIDAZOLAM 2 MG/2 ML VIAL ONE (11:22)
[2021-08-30] MEDS ORDERED: PROPOFOL 10 MG/ML 20 ML VIAL IV ONE (11:22)
--- NOTE | 2021-08-30 11:44 | CDI ---
Documentation Clarification Form Date: 08/30/2021 10:55:20 AM From: Marysol Meléndez RN CCDS Admit Date: 08/28/2021 04:28:00 PM Patient Name: Lakshmi Vasquez Visit Number: [id number] Discharge Date: ATTENTION: The Clinical Documentation Specialists (CDI) and [facility] Coding Staff appreciate your assistance in clarifying documentation. Please respond to the clarification below the line at the bottom and electronically sign. The CDI & [facility] Coding staff will review the response and follow-up if needed. Please note: Queries are made part of the Legal Health Record. If you have any questions, please contact the author of this message via ITS. Dr. Lady Santiago The patient presented with the following clinical indicators. Additional clarification regarding the etiology/cause of the clinical indicators is requested. History/Risk Factors: 30-year-old female presents to the ED for evaluation of fever up to 102, chills, abdominal pain, painful urination, and occasional cough. The patient had a Total laparoscopic hysterectomy with bilateral salpingectomy with da Cal 08/13/[address] Santiago. COVID 19 approximately 3 weeks ago. 08/26, H&P. Clinical Indicators: WBC: 08/27 8.2 Vitals signs: 08/26 B/P 120/71; HR 134; Temp 101.1 F Oral; SpO2 100% room ra 08/26 18:05 Temp 101.3 F Oral 08/27 B/P 116/75; HR 133; Temp 102.4; RR 17 SpO2 99% ra 08/26, Trans Abd US: There is large complex avascular pelvic mass. There is cystic component. Follow-up is recommended. This could be hemorrhage or abscess in this patient with recent hysterectomy. Treatment: Antibiotics: 08/26 Cefepime 2gm IVPB x 1; 08/26 current Cefepime 2gm IVPB Q8HR; 08/28 current Clindamycin 600mg IVPB Q8HR. IV Bolus: 08/26 500cc IV Bolus x 1; 08/26 0.9NS 1L IV Bolus x 1 In your professional opinion, please clarify if these findings signify one of the following conditions: [ ] Post operative infection [ ] Sepsis POA related to post operative infection [ ] Sepsis POA, related to (please specify) [ ] Other, please specify [ x] Unable to determine SIRS Criteria: 2 or more of the following may indicate SIRS -Temperature < 96.8F (36C) or > 101.0F (38.3C) -Heart Rate > 90 bpm -Respiratory Rate > 20 breaths/min or PaCO2 < 32 mmHg -White Blood Cell Count > 12,000 or < 4,000 cells/mm3 or > 10% bands She had a fever but she also had anemia. Once Her hgb came up, she was no longer tachycardic nor spiking fevers. (Template Last Reviewed: April 2020) BENJAMIN
--- NOTE | 2021-08-30 12:12 | P.OP ---
Date of Procedure: 08/30/21 Preoperative Diagnosis: 1. pelvic hematoma Postoperative Diagnosis: 1. pelvic hematoma Procedure(s) Performed: Exam under anesthesia, colpotomy and drainage of pelvic hematoma Anesthesia: KO Surgeon: Lady Santiago Estimated Blood Loss (ml): 5 IV fluids (ml): 350 Urine output (ml): 50 Pathology: other (Culture of posterior cul-de-sac) Condition: stable Disposition: PACU Description of Procedure: Patient is taken the operating room and general anesthesia was obtained without difficulty. She is prepped draped in normal sterile fashion dorsal lithotomy position, legs placed in the Porfirio stirrups. Bladder was drained of all urine. Weighted speculum place in vagina and the anterior retractor was also placed second fetus vaginal cuff. I grasped the vaginal cuff where the suture line was with a Allis clamp. I used to sound to poke through the middle of the vaginal cuff which started to immediately spilled dark old blood mixed with fluid. I took a culture tube to the posterior cul-de-sac. With a pool sucker into the pelvic cavity through the vagina and removed more blood. I used the 60 mL syringe to push sterile saline into the pelvis to irrigate and then used to pull sucker to remove the fluid. I did this twice and the fluid was clear. I then Used 0 Vicryl in [id number] stitches to close the vaginal cuff and obtain excellent hemostasis. Patient had a procedure well. Sponge and instrument counts correct 2. She was taken to recovery in stable condition.
[2021-08-30 12:38] LABS: Glucose,Whole Blood 83 mg/dL (70-110)
[2021-08-31] MEDS: IBUPROFEN 600 MG TAB PO PRN (00:01)
[2021-08-31] MEDS: CEFEPIME 2 GM in SODIUM CHLORIDE 0.9% 100 ML IVPB SCH ×2 (01:15→09:11)
[2021-08-31] MEDS: SODIUM CHLORIDE 0.9% 1,000 ML IV SCH (06:28)
[2021-08-31] MEDS ORDERED: HYDROmorphone 0.5 MG/0.5 ML SYRINGE IVP PRN (07:00)
[2021-08-31] MEDS: CLINDAMYCIN 600 MG in DEXTROSE 5% IN WATER 50 ML IVPB SCH ×2 (07:10)
[2021-08-31] MEDS: TOPIRAMATE 25 MG TAB PO SCH (07:11)
[2021-08-31] MEDS: DOCUSATE 100 MG CAP PO SCH (07:11)
[2021-08-31] MEDS: SERTRALINE 50 MG TAB PO SCH (07:11)
[2021-08-31] MEDS: ACETAMINOPHEN TAB 325 MG TAB PO PRN (07:25)
[2021-08-31 07:50] VITALS: BP 109/75; PULSE 87; RESP 18; TEMP 98.1
--- NOTE | 2021-08-31 08:51 | P.DS ---
Providers Date of admission: 08/28/21 16:28 Expected date of discharge: 08/31/21 Attending physician: Nichole Santiago Primary care physician: David Ring - [place] Diagnosis(es) (1) S/P robot-assisted surgical procedure Current Visit: No Status: Acute (2) Acute blood loss anemia Current Visit: Yes Status: Acute (3) Fever of undetermined origin Current Visit: Yes Status: Acute (4) Pelvic hematoma Current Visit: Yes Status: Acute Hospital Course: Patient presented 5 days postoperative from a total laparoscopic hysterectomy using da Cal. She had a fever, tachycardia, anemia and a fluid collection in her pelvis that turned out to be blood. Patient is admitted for pain control and then was treated for her anemia with 2 units of packed red blood cells. Her tachycardia resolved and her hemoglobin came to 9.5. She did have a fever for a few days T-max of 102. After cefepime and clindamycin were given she remains afebrile for the last 48 hours. Consider to the operating room yesterday for an evacuation of the blood clot through the vagina. This went very well and ambulating on culture results. Patient's pain is much better now that she still is quite uncomfortable. I will discharge her home today to follow-up with me on September 11. Patient Condition at Discharge: Good Plan - Discharge Summary Discharge Rx Participant: Yes New Discharge Prescriptions: New Ibuprofen [Motrin] 600 mg PO Q6HR PRN #30 tab PRN Reason: Mild Pain Or Fever >= 100.5 Cephalexin [Keflex] 500 mg PO Q6HR 4 Days #16 cap Continue HYDROcodone/APAP 7.5-325MG [[place] 7.5-325] 1 tab PO Q6HR PRN 3 Days #12 tab PRN Reason: Pain Discontinued Ibuprofen [Motrin] 600 mg PO Q6HR PRN #30 tab PRN Reason: Mild Pain Or Fever >= 100.5 No Action Sertraline [Zoloft] 50 mg PO DAILY Topiramate [Topamax] 50 mg PO BID Naratriptan HCl 1 mg PO DAILY PRN PRN Reason: Migraine Headache Cyclobenzaprine [Flexeril] 10 mg PO TID PRN #15 tab PRN Reason: Muscle Spasm Discharge Medication List Sertraline [Zoloft] 50 mg PO DAILY 02/16/21 [History] Topiramate [Topamax] 50 mg PO BID 02/16/21 [History] Naratriptan HCl 1 mg PO DAILY PRN 03/23/21 [History] Cyclobenzaprine [Flexeril] 10 mg PO TID PRN #15 tab 04/07/21 [Rx] Cephalexin [Keflex] 500 mg PO Q6HR 4 Days #16 cap 08/31/21 [Rx] HYDROcodone/APAP 7.5-325MG [[place] 7.5-325] 1 tab PO Q6HR PRN 3 Days #12 tab 08/31/21 [Rx] Ibuprofen [Motrin] 600 mg PO Q6HR PRN #30 tab 08/31/21 [Rx] Follow up Appointment(s)/Referral(s): David Ring MD [Primary Care Provider] - 1-2 days Lady Santiago DO [Doctor of Osteopathic Medicine] - 09/11/21 Patient Instructions/Handouts: Fever in Adults (ED) Discharge Disposition: HOME SELF-CARE
== END 2021-08-31 11:00 | disposition home or self-care (01) | DRG 988 ==
LOC: EC 00:44 → 6NMEDSUR 05:46 → OBSVTOIN 08-28 16:28
PROVIDERS: ADMIT Obstetrics & Gynecology; ATTEND Obstetrics & Gynecology
PROC: 30233N1 Transfusion of Nonautologous Red Blood Cells into Peripheral Vein, Percutaneous Approach (ICD-10-PCS; 2021-08-28)
PROC: 0W9 Anatomical Regions, General, Drainage (ICD-10-PCS; principal; 2021-08-30 07:30)
PROC: 0U9G7ZZ Drainage of Vagina, Via Natural or Artificial Opening (ICD-10-PCS; principal; 2021-08-30 07:30)
DX: N99.840 Postprocedural hematoma of a genitourinary system organ or structure following a genitourinary system procedure (principal); D62 Acute posthemorrhagic anemia; K21.9 Gastro-esophageal reflux disease without esophagitis; R50.9 Fever, unspecified; N83.201 Unspecified ovarian cyst, right side; Z79.899 Other long term (current) drug therapy; Z90.710 Acquired absence of both cervix and uterus; Z90.79 Acquired absence of other genital organ(s); Z86.16 Personal history of COVID-19; Z98.51 Tubal ligation status; Z86.32 Personal history of gestational diabetes; Z86.69 Personal history of other diseases of the nervous system and sense organs; Z98.818 Other dental procedure status; Z98.890 Other specified postprocedural states; Y83.6 Removal of other organ (partial) (total) as the cause of abnormal reaction of the patient, or of later complication, without mention of misadventure at the time of the procedure; Z88.0 Allergy status to penicillin; Z88.2 Allergy status to sulfonamides; Z82.49 Family history of ischemic heart disease and other diseases of the circulatory system; Z83.2 Family history of diseases of the blood and blood-forming organs and certain disorders involving the immune mechanism
CPT/HCPCS: 36415; 71045; 74177; 76856; 80048; 80053; 81001; 81025; 83605; 85025; 85027; 86850; 86900; 86901; 86920; 87040; 87070; 87075; 87205; 93976; 96361; 96365; 96375; 99285

== ENCOUNTER 2022-01-07 09:56 | Emergency (ER) | payer OTHER ==
[2022-01-07 10:05] VITALS: TEMP 98
[2022-01-07] MEDS ORDERED: RABIES IMM GLOB 300 UNIT/2 ML VIAL IM ONE (10:26)
[2022-01-07] MEDS ORDERED: RABIES VACCINE (PCEC) 2.5 UNIT KIT IM ONE (10:26)
[2022-01-07] MEDS ORDERED: HYDROcodone/APAP 5-325MG 1 EACH TAB PO STA (10:26)
[2022-01-07] MEDS ORDERED: DIPH,PERTUS(ACELL)TETVAC-LF 0.5 ML VIAL IM ONE (10:26)
[2022-01-07] MEDS ORDERED: DOXYCYCLINE 100 MG CAP PO STA (10:42)
--- NOTE | 2022-01-07 10:58 | ED ---
General Adult HPI - General Chief complaint: Animal Bite Stated complaint: cat bite to finger Time Seen by Provider: 01/07/22 10:16 Source: patient, RN notes reviewed, old records reviewed Mode of arrival: ambulatory - History of Present Illness Initial comments: Patient is a 31-year-old female with no significant past medical history presents emergency department after being bitten by a feral cat yesterday. Unknown rabies status for the cat. Denies being previously vaccinated for rabies. Past medical history includes GERD. States she was bit on her left second finger. It is swollen, tender with flexion and movement. No discharge from the wound. No spreading of the infection at this time. Presents for further evaluation at this time. Unknown tetanus status. Denies fevers, nausea, vomiting, abdominal pain. Denies shortness breath or chest pain. - Related Data Home Medications Medication Instructions Recorded Confirmed Sertraline [Zoloft] 50 mg PO DAILY 02/16/21 08/26/21 Topiramate [Topamax] 50 mg PO BID 02/16/21 08/26/21 Naratriptan HCl [[place]] 1 mg PO DAILY PRN 03/23/21 08/26/21 Previous Rx's Medication Instructions Recorded Cyclobenzaprine [Flexeril] 10 mg PO TID PRN #15 tab 04/07/21 Cephalexin [Keflex] 500 mg PO Q6HR 4 Days #16 cap 08/31/21 HYDROcodone/APAP 7.5-325MG [[place] 1 tab PO Q6HR PRN 3 Days #12 tab 08/31/21 7.5-325] Ibuprofen [Motrin] 600 mg PO Q6HR PRN #30 tab 08/31/21 Doxycycline Hyclate 100 mg PO BID 14 Days #28 cap 01/07/22 Allergies Allergy/AdvReac Type Severity Reaction Status Date / Time Penicillins Allergy lip Verified 01/07/22 10:05 swelling Sulfa (Sulfonamide Allergy Rash/Hives Verified 01/07/22 10:05 Antibiotics) Review of Systems ROS Statement: Those systems with pertinent positive or pertinent negative responses have been documented in the HPI. Review of Systems: CONST: Denies fever EYES: Denies blurry vision ENT: Denies nasal congestion C/V: Denies Chest pain RESP: Denies shortness of breath GI: Denies abdominal pain : Denies dysuria SKIN: Endorses cat bite MSK: Denies joint pain. NEURO: Denies headache ROS Other: All systems not noted in ROS Statement are negative. Past Medical History Past Medical History: GERD/Reflux Additional Past Medical History / Comment(s): Gestational diabetes, Migraines History of Any Multi-Drug Resistant Organisms: None Reported Past Surgical History: Hysterectomy, Tubal Ligation Additional Past Surgical History / Comment(s): wisdom teeth removed Past Anesthesia/Blood Transfusion Reactions: No Reported Reaction Past Psychological History: No Psychological Hx Reported Smoking Status: Never smoker Past Alcohol Use History: None Reported Past Drug Use History: None Reported - Past Family History Father History Unknown: Yes Family Medical History: Coronary Artery Disease (CAD), Deep Vein Thrombosis (DVT) Additional Family Medical History / Comment(s): Heartdisease General Exam - General Exam Comments Initial Comments: General: Appears in no acute distress. HEAD: Normal with no signs of head trauma. EYES: PERRLA, EOMI, conjunctiva normal, no discharge. ENT: Hearing grossly intact, normal oropharynx. RESPIRATORY: No respiratory distress C/V: Regular rate and rhythm. Peripheral pulses 2+ intact throughout. ABD: Abd is soft, nontender, nondistended EXT: Normal range of motion, no obvious deformity SKIN: Puncture wounds to the distal phalange of the left second digit. Erythematous around the puncture wounds. No sausage digit. Patient does hold finger in full extension. No pain on passive extension of the finger. No real flexor tenderness to palpation. Tenderness primarily at the site of the puncture wound. NEURO: Alert and oriented 4. No sensory deficits. Course Vital Signs 01/07/22 01/07/22 10:03 12:15 Temperature 98 F Pulse Rate 95 89 Respiratory 20 17 Rate Blood Pressure 116/75 105/72 O2 Sat by Pulse 98 100 Oximetry Medical Decision Making - Medical Decision Making Based on the patient's presentation and physical exam, I'm concerned for a Bite to the patient's left second digit. Does not appear to have flexor tenosynovitis but it does appear erythematous and infected. Bite occurred yesterday. Was bitten by a feral stray cat with unknown rabies status. We did discuss rabies prophylaxis and she did consent to therapy. Will be given IM doses of the rabies immunoglobulin as well as vaccine. We will update her te tanus status. We will obtain an x-ray of the left hand. She'll be given [place] for pain as well as started on doxycycline as she is ALLERGIC to penicillins. She is in agreement this plan. Vital signs within acceptable limits. Patient's x-ray and is negative for any acute injury or retained foreign body. I did the patient. She will be discharged home on antibiotics, as well as a pre scription for rabies vaccines. She was in agreement with this plan. Strict return precautions were discussed. I will provide the patient with a prescription for doxycycline 100 mg twice a day for 14 days, rabies vaccine obtain on day 3, 7, 14. I instructed the patient to follow up with their PCP in the next 1-3 days. I explained that the patient should return to the emergency department if they experience any worsening symptoms. Strict return precautions were discussed with the patient. The patient expressed understanding of these instructions. I answered all questions that the patient had. The patient was discharged home in good condition with their prescriptions and follow up information. Disposition Clinical Impression: Bite by animal, Cat bite Disposition: HOME SELF-CARE Condition: Fair Instructions (If sedation given, give patient instructions): Animal Bite (ED) Prescriptions: Doxycycline Hyclate 100 mg PO BID 14 Days #28 cap Is patient prescribed a controlled substance at d/c from ED?: No Referrals: David Ring MD [Primary Care Provider] - 1-2 days Time of Disposition: 11:45
--- NOTE | 2022-01-07 11:13 | XR ---
EXAMINATION TYPE: XR hand complete LT DATE OF EXAM: 01/07/2022 COMPARISON: NONE HISTORY: Pain TECHNIQUE: Three views are submitted. FINDINGS: The osseous structures are intact. The joint spaces are preserved and there is no acute fracture or dislocation. IMPRESSION: 1. No definite acute fracture or dislocation if symptoms persist, follow-up study in 7 to 10 days wo uld be suggested
[2022-01-07 12:17] VITALS: BP 105/72; PULSE 89; RESP 17
== END 2022-01-07 12:16 | disposition home or self-care (01) ==
LOC: EC 09:56
DX: S61.251A Open bite of left index finger without damage to nail, initial encounter (principal); S61.231A Puncture wound without foreign body of left index finger without damage to nail, initial encounter; Z88.0 Allergy status to penicillin; Z88.2 Allergy status to sulfonamides; Z23 Encounter for immunization; W55.01XA Bitten by cat, initial encounter
CPT/HCPCS: 90377; 90471; 90675; 90715; 99283

== ENCOUNTER 2022-05-25 15:05 | Emergency (ER) | payer OTHER ==
[2022-05-25 15:17] VITALS: TEMP 98.9
[2022-05-25] MEDS ORDERED: DEXAMETHASONE SOD PHOSPHATE 10 MG/ML 1 ML VIAL IVP STA (15:41)
[2022-05-25] MEDS ORDERED: METOCLOPRAMIDE 5 MG/ML 2 ML VIAL IVP STA (15:41)
[2022-05-25] MEDS ORDERED: SODIUM CHLORIDE 0.9% 1,000 ML IV STA (15:41)
[2022-05-25] MEDS ORDERED: KETOROLAC 15 MG/ML 1 ML VIAL IVP STA (15:41)
[2022-05-25] MEDS ORDERED: diphenhydrAMINE 50 MG/ML 1 ML VIAL IVP STA (15:41)
--- NOTE | 2022-05-25 16:05 | ED ---
Headache HPI - General Chief Complaint: Headache Stated Complaint: headache Time Seen by Provider: 05/25/22 15:22 Source: patient, RN notes reviewed Mode of arrival: ambulatory Limitations: no limitations - History of Present Illness Initial Comments: This is a 31-year-old female who presents to the emergency department for a headache. Patient was evaluated here 5 days ago for left-sided paresthesias. Stroke workup was obtained and found to be negative. Patient states that since that day, she has had a migraine. Describes this as a sharp throbbing sensation throughout her whole head with numbness in the back of her head. This feels similar to prior migraines. She is unable to get this to resolve with typical migraine medications. Reports associated nausea and photophobia. She would not describe this as the worst headache of her life. Denies any fevers, chills, sore throat, cough, dyspnea, chest pain, palpitations, abdominal pain, or diarrhea. MD Complaint: "migraine" Onset/Timin -: days(s) - Related Data Home Medications Medication Instructions Recorded Confirmed Lisdexamfetamine Dimesylate 10 mg PO DAILY 05/20/22 05/20/22 [Vyvanse] Sertraline [Zoloft] 100 mg PO DAILY 05/20/22 05/20/22 Allergies Allergy/AdvReac Type Severity Reaction Status Date / Time Penicillins Allergy lips Verified 05/25/22 15:17 swelling Sulfa (Sulfonamide Allergy Rash/Hives Verified 05/25/22 15:17 Antibiotics) Review of Systems ROS Statement: Those systems with pertinent positive or pertinent negative responses have been documented in the HPI. ROS Other: All systems not noted in ROS Statement are negative. Past Medical History Past Medical History: GERD/Reflux Additional Past Medical History / Comment(s): Gestational diabetes, Migraines History of Any Multi-Drug Resistant Organisms: None Reported Past Surgical History: Hysterectomy, Tubal Ligation Additional Past Surgical History / Comment(s): wisdom teeth removed Past Anesthesia/Blood Transfusion Reactions: No Reported Reaction Past Psychological History: Anxiety Smoking Status: Never smoker Past Alcohol Use History: Occasional Past Drug Use History: Marijuana - Past Family History Father History Unknown: Yes Family Medical History: Coronary Artery Disease (CAD), Deep Vein Thrombosis (DVT) Additional Family Medical History / Comment(s): Heartdisease General Exam Limitations: no limitations General appearance: alert, in no apparent distress Head exam: Present: atraumatic, normocephalic, normal inspection Eye exam: Present: normal appearance, PERRL, EOMI. Absent: scleral icterus, conjunctival injection, periorbital swelling Respiratory exam: Present: normal lung sounds bilaterally. Absent: respiratory distress, wheezes, rales, rhonchi, stridor Cardiovascular Exam: Present: regular rate, normal rhythm, normal heart sounds. Absent: systolic murmur, diastolic murmur, rubs, gallop, clicks Neurological exam: Present: alert, oriented X3, CN II-XII intact Psychiatric exam: Present: normal affect, normal mood Skin exam: Present: warm, dry, intact, normal color. Absent: rash Course Vital Signs 05/25/22 05/25/22 15:14 17:53 Temperature 98.9 F Pulse Rate 88 83 Respiratory 22 16 Rate Blood Pressure 123/79 118/73 O2 Sat by Pulse 99 97 Oximetry Medical Decision Making - Medical Decision Making This is a 31-year-old female who presents to the emergency department for a migraine. Was pt. sent in by a medical professional or institution? @ -No Did you speak to anyone other than the patient for history? @ -No Did you review nursing and triage notes? @ -Yes, and I agree, it is accurate with regards to the patient's symptoms. Were old charts reviewed? @ -Lab work and imaging from 05/20. Differential Diagnosis? @ -Differential Headache: Migraine, tension, cluster, carbon monoxide, central venous thrombosis, pension karma temporal arteritis, acute closure glaucoma, intercranial hemorrhage, mastoiditis, sinusitis, head injury, this is not meant to be an all-inclusive list. What testing was considered but not performed? (CT, X-rays, U/S, labs)? Why? @ -None What meds were considered but not given? Why? @ -None Did you discuss the management of the patient with other professionals? @ -No Did you reconcile home meds? @ -No Was smoking cessation discussed for >3mins.? @ -No Was critical care preformed (if so, how long)? @ -No Were there social determinants of health that impacted care today? How? (Homelessness, low income, unemployed, alcoholism, drug addiction, transportation, low edu. Level, literacy, decrease access to med. care, half-way, rehab)? @ -No Was there de-escalation of care discussed even if they declined? (Discuss DNR or withdrawal of care, Hospice)? @ -No What co-morbidities impacted this encounter? (DM, HTN, Smoking, COPD, CAD, Canc er, CVA, Hep., AIDS, mental health diagnosis, sleep apnea, morbid obesity)? @ -Migraines Was patient admitted / discharged? @ -Discharged. Lab work obtained and found to be nonactionable. She was initially given a migraine cocktail consisting of IV fluids, Decadron, Reglan, Toradol, and Benadryl, which did not effectively treat the migraine. We then tried a dose of Dilaudid with magnesium, which she states was much more helpful. She overall had substantial headache improvement and felt stable for discharge home. Advised ibuprofen and Tylenol as needed for pain relief. Zofran starter pack provided for any additional nausea. Undiagnosed new problem with uncertain prognosis? @ -None Drug Therapy requiring intensive monitoring for toxicity (Heparin, Nitro, Insulin, Cardizem)? @ -None Were any procedures done? @ -None Diagnosis/symptom? @ -Migraine headache Acute, or Chronic, or Acute on Chronic? @ -Acute Uncomplicated (without systemic symptoms) or Complicated (systemic symptoms)? @ -Uncomplicated Side effects of treatment? @ -None Exacerbation, Progression, or Severe Exacerbation] @ -Not applicable Poses a threat to life or bodily function? @ -No Return precautions reviewed in depth, the patient is instructed to return to the emergency department with any new, worsening, or concerning symptoms. Patient verbalized understanding. This case was discussed in detail with the attending ED physician, Dr. Longoria. Presentation, findings, and treatment plan discussed in detail as well. - Lab Data Result diagrams: 05/25/22 15:54 05/25/22 15:54 Lab Results 05/25/22 05/25/22 05/25/22 Range/Units 15:54 15:54 15:54 WBC 5.0 (3.8-10.6) k/uL RBC 4.58 (3.80-5.40) m/uL Hgb 13.9 (11.4-16.0) gm/dL Hct 41.1 (34.0-46.0) % MCV 89.8 (80.0-100.0) fL MCH 30.4 (25.0-35.0) pg MCHC 33.9 (31.0-37.0) g/dL RDW 11.7 (11.5-15.5) % Plt Count 295 (150-450) k/uL MPV 7.5 Neutrophils % 62 % Lymphocytes % 29 % Monocytes % 5 % Eosinophils % 2 % Basophils % 1 % Neutrophils # 3.1 (1.3-7.7) k/uL Lymphocytes # 1.4 (1.0-4.8) k/uL Monocytes # 0.2 (0-1.0) k/uL Eosinophils # 0.1 (0-0.7) k/uL Basophils # 0.0 (0-0.2) k/uL ESR 6 (0-20) mm/hr Sodium (137-145) mmol/L Potassium (3.5-5.1) mmol/L Chloride (98-107) mmol/L Carbon Dioxide (22-30) mmol/L Anion Gap mmol/L BUN (7-17) mg/dL Creatinine (0.52-1.04) mg/dL Est GFR (CKD-EPI)AfAm (>60 ml/min/1.73 sqM) Est GFR (CKD-EPI)NonAf (>60 ml/min/1.73 sqM) Glucose (74-99) mg/dL Calcium (8.4-10.2) mg/dL Total Bilirubin (0.2-1.3) mg/dL AST (14-36) U/L ALT (4-34) U/L Alkaline Phosphatase (38-126) U/L C-Reactive Protein (<1.0) mg/dL Total Protein (6.3-8.2) g/dL Albumin (3.5-5.0) g/dL TSH (0.465-4.680) mIU/L Free T4 (0.78-2.19) ng/dL Urine Color Light Yellow Urine Appearance Clear (Clear) Urine pH 7.0 (5.0-8.0) Ur Specific [place] 1.018 (1.001-1.035) Urine Protein Negative (Negative) Urine Glucose (UA) Negative (Negative) Urine Ketones Negative (Negative) Urine Blood Negative (Negative) Urine Nitrite Negative (Negative) Urine Bilirubin Negative (Negative) Urine Urobilinogen <2.0 (<2.0) mg/dL Ur Leukocyte Esterase Negative (Negative) Urine HCG, Qual Not Detected (Not Detectd) 05/25/22 Range/Units 15:54 WBC (3.8-10.6) k/uL RBC (3.80-5.40) m/uL Hgb (11.4-16.0) gm/dL Hct (34.0-46.0) % MCV (80.0-100.0) fL MCH (25.0-35.0) pg MCHC (31.0-37.0) g/dL RDW (11.5-15.5) % Plt Count (150-450) k/uL MPV Neutrophils % % Lymphocytes % % Monocytes % % Eosinophils % % Basophils % % Neutrophils # (1.3-7.7) k/uL Lymphocytes # (1.0-4.8) k/uL Monocytes # (0-1.0) k/uL Eosinophils # (0-0.7) k/uL Basophils # (0-0.2) k/uL ESR (0-20) mm/hr Sodium 137 (137-145) mmol/L Potassium 4.1 (3.5-5.1) mmol/L Chloride 105 (98-107) mmol/L Carbon Dioxide 27 (22-30) mmol/L Anion Gap 5 mmol/L BUN 18 H (7-17) mg/dL Creatinine 0.57 (0.52-1.04) mg/dL Est GFR (CKD-EPI)AfAm >90 (>60 ml/min/1.73 sqM) Est GFR (CKD-EPI)NonAf >90 (>60 ml/min/1.73 sqM) Glucose 90 (74-99) mg/dL Calcium 8.9 (8.4-10.2) mg/dL Total Bilirubin 0.5 (0.2-1.3) mg/dL AST 18 (14-36) U/L ALT 18 (4-34) U/L Alkaline Phosphatase 53 (38-126) U/L C-Reactive Protein <0.5 (<1.0) mg/dL Total Protein 7.2 (6.3-8.2) g/dL Albumin 4.3 (3.5-5.0) g/dL TSH 0.396 L (0.465-4.680) mIU/L Free T4 0.93 (0.78-2.19) ng/dL Urine Color Urine Appearance (Clear) Urine pH (5.0-8.0) Ur Specific [place] (1.001-1.035) Urine Protein (Negative) Urine Glucose (UA) (Negative) Urine Ketones (Negative) Urine Blood (Negative) Urine Nitrite (Negative) Urine Bilirubin (Negative) Urine Urobilinogen (<2.0) mg/dL Ur Leukocyte Esterase (Negative) Urine HCG, Qual (Not Detectd) Disposition Clinical Impression: Migraine headache Disposition: HOME SELF-CARE Instructions (If sedation given, give patient instructions): Migraine Headache (ED) Additional Instructions: Return to the emergency department with any new, worsening, or concerning symptoms. Alternate with ibuprofen and Tylenol as needed for pain relief. Take the Zofran up to every 8 hours as needed for nausea and vomiting. Make sure that you remain very well-hydrated. Follow up with your primary care provider in 1-2 days. Is patient prescribed a controlled substance at d/c from ED?: No Referrals: David Ring MD [Primary Care Provider] - 1-2 days
[2022-05-25 16:19] LABS: Appearance,Urine Clear (Clear); Basophils % (A) 1 %; Bilirubin,Urine Negative (Negative); Blood,Urine Negative (Negative); Color,Urine Light Yellow; Eosinophils # (A) 0.1 k/uL (0-0.7); Eosinophils % (A) 2 %; Glucose,Urine (UA) Negative (Negative); HCT 41.1 % (34.0-46.0); HGB 13.9 gm/dL (11.4-16.0); Ketones,Urine Negative (Negative); Leukocyte Esterase,Urine Negative (Negative); Lymphocytes # (A) 1.4 k/uL (1.0-4.8); Lymphocytes % (A) 29 %; MCH 30.4 pg (25.0-35.0); MCHC 33.9 g/dL (31.0-37.0); MCV 89.8 fL (80.0-100.0); Mean Platelet Volume 7.5; Monocytes # (A) 0.2 k/uL (0-1.0); Monocytes % (A) 5 %; Neutrophils # (A) 3.1 k/uL (1.3-7.7); Neutrophils % (A) 62 %; Nitrite,Urine Negative (Negative); Platelet Count 295 k/uL (150-450); Protein,Urine Negative (Negative); RBC 4.58 m/uL (3.80-5.40); RDW 11.7 % (11.5-15.5); Specific Gravity,Urine 1.018 (1.001-1.035); Urobilinogen,Urine <2.0 mg/dL (<2.0)
[2022-05-25 16:31] LABS: ALT 18 U/L (4-34); AST 18 U/L (14-36); African American GFR (CKD) >90 (>60 ml/min/1.73 sqM); Albumin 4.3 g/dL (3.5-5.0); Alkaline Phosphatase 53 U/L (38-126); Anion Gap 5 mmol/L; Blood Urea Nitrogen 18 mg/dL (7-17); C Reactive Protein <0.5 mg/dL (<1.0); Calcium 8.9 mg/dL (8.4-10.2); Carbon Dioxide 27 mmol/L (22-30); Chloride 105 mmol/L (98-107); Glucose 90 mg/dL (74-99); Non-African American GFR(CKD) >90 (>60 ml/min/1.73 sqM); Potassium 4.1 mmol/L (3.5-5.1); Sodium 137 mmol/L (137-145); Total Bilirubin 0.5 mg/dL (0.2-1.3); Total Protein 7.2 g/dL (6.3-8.2)
[2022-05-25] MEDS ORDERED: MAGNESIUM SULFATE-D5W PMX 1 GM in DEXTROSE/WATER 1 100ML.BAG IVPB ONE (16:33)
[2022-05-25] MEDS ORDERED: HYDROmorphone 0.5 MG/0.5 ML SYRINGE IVP STA (16:33)
[2022-05-25] MEDS ORDERED: ONDANSETRON 4 MG ODT STARTER PACK 2 TAB BTL PO STA (17:17)
[2022-05-25] MEDS ORDERED: traMADol 50 MG STARTER PACK 3 TAB BTL PO STA (17:17)
[2022-05-25] MEDS ORDERED: IBUPROFEN 600 MG STARTER PACK 4 TAB BTL PO STA (17:17)
[2022-05-25 17:51] LABS: T4, Free (Free Thyroxine) 0.93 ng/dL (0.78-2.19)
[2022-05-25 17:54] VITALS: BP 118/73; PULSE 83; RESP 16
[2022-05-25 18:04] LABS: Erythrocyte Sedimentation Rate 6 mm/hr (0-20)
== END 2022-05-25 17:54 | disposition home or self-care (01) ==
LOC: EC 15:05
DX: G43.909 Migraine, unspecified, not intractable, without status migrainosus (principal); F41.9 Anxiety disorder, unspecified; F12.90 Cannabis use, unspecified, uncomplicated; Z88.0 Allergy status to penicillin; Z88.2 Allergy status to sulfonamides; Z88.1 Allergy status to other antibiotic agents
CPT/HCPCS: 36415; 84439; 80053; 85652; 84443; 85025; 86140; 81003; 81025; 99284; 96365; 96375 ×5; J1200; J1100; J2765; J3475; J1885; S0119; J1170

== ENCOUNTER 2022-05-31 11:51 | Emergency (ER) | payer OTHER ==
[2022-05-31 12:09] VITALS: RESP 18; TEMP 97.3
[2022-05-31 12:55] LABS: Basophils # (A) 0.1 k/uL (0-0.2); Basophils % (A) 1 %; Eosinophils # (A) 0.2 k/uL (0-0.7); Eosinophils % (A) 4 %; HGB 14.4 gm/dL (11.4-16.0); Lymphocytes # (A) 1.3 k/uL (1.0-4.8); Lymphocytes % (A) 26 %; MCH 30.2 pg (25.0-35.0); MCHC 33.4 g/dL (31.0-37.0); MCV 90.4 fL (80.0-100.0); Mean Platelet Volume 7.3; Monocytes # (A) 0.3 k/uL (0-1.0); Monocytes % (A) 6 %; Neutrophils % (A) 61 %; Platelet Count 286 k/uL (150-450); RBC 4.76 m/uL (3.80-5.40); RDW 11.8 % (11.5-15.5); WBC 4.8 k/uL (3.8-10.6)
--- NOTE | 2022-05-31 12:58 | XR ---
EXAMINATION TYPE: XR chest 2V DATE OF EXAM: 05/31/2022 COMPARISON: NONE TECHNIQUE: PA and lateral views submitted. HISTORY: Chest pain FINDINGS: The lungs are clear and there is no pneumothorax, pleural effusion, or focal pneumonia. Heart size normal and no overt failure. Osseous structures intact. IMPRESSION: 1. No acute process.
[2022-05-31 13:10] LABS: ALT 17 U/L (4-34); AST 18 U/L (14-36); African American GFR (CKD) >90 (>60 ml/min/1.73 sqM); Albumin 4.5 g/dL (3.5-5.0); Alkaline Phosphatase 64 U/L (38-126); Anion Gap 7 mmol/L; Blood Urea Nitrogen 12 mg/dL (7-17); Calcium 9.1 mg/dL (8.4-10.2); Carbon Dioxide 29 mmol/L (22-30); Chloride 105 mmol/L (98-107); Glucose 103 mg/dL (74-99); Lipase 63 U/L (23-300); Non-African American GFR(CKD) >90 (>60 ml/min/1.73 sqM); Potassium 4.5 mmol/L (3.5-5.1); Sodium 141 mmol/L (137-145); Total Bilirubin 0.3 mg/dL (0.2-1.3); Total Protein 7.5 g/dL (6.3-8.2)
[2022-05-31 13:25] LABS: Partial Thromboplastin Time 24.3 sec (22.0-30.0); Prothrombin Time 10.2 sec (9.0-12.0)
--- NOTE | 2022-05-31 13:41 | ED ---
Chest Pain HPI - General Chief Complaint: Chest Pain Stated Complaint: Chest Pain Time Seen by Provider: 05/31/22 12:09 Source: patient, EMS Mode of arrival: EMS Limitations: no limitations - History of Present Illness Initial Comments: 31-year-old female with past history of migraines who presented to the emergency room reporting chest pain. States that she was taking care of her kids at home when she had sudden onset of chest pain. Describes it as a burning sensation in the middle of her chest. No previous history of cardiac disease. Father does have a significant history of cardiac disease and at the age of 46 from an CA. She has had no previous workup. Denies fevers, chills or cough. No DVT or PE history. No concern for . No other alleviating, precipitating or modifying factors - Related Data Home Medications Medication Instructions Recorded Confirmed Lisdexamfetamine Dimesylate 10 mg PO DAILY 05/20/22 05/31/22 [Vyvanse] Sertraline [Zoloft] 100 mg PO DAILY 05/20/22 05/31/22 Atogepant [Qulipta] 60 mg PO DAILY PRN 05/31/22 05/31/22 Allergies Allergy/AdvReac Type Severity Reaction Status Date / Time Penicillins Allergy lips Verified 05/31/22 12:37 swelling Sulfa (Sulfonamide Allergy Rash/Hives Verified 05/31/22 12:37 Antibiotics) Review of Systems ROS Statement: Those systems with pertinent positive or pertinent negative responses have been documented in the HPI. ROS Other: All systems not noted in ROS Statement are negative. EKG Findings - EKG Comments: EKG Findings:: EKG demonstrate sinus rhythm with a rate of 71. SD interval 141. QRS 77. QTC 385. No acute ST segment elevations or depressions Past Medical History Past Medical History: GERD/Reflux Additional Past Medical History / Comment(s): Gestational diabetes, Migraines History of Any Multi-Drug Resistant Organisms: None Reported Past Surgical History: Hysterectomy, Tubal Ligation Additional Past Surgical History / Comment(s): wisdom teeth removed Past Anesthesia/Blood Transfusion Reactions: No Reported Reaction Past Psychological History: Anxiety Smoking Status: Never smoker Past Alcohol Use History: Occasional Past Drug Use History: Marijuana - Past Family History Father History Unknown: Yes Family Medical History: Coronary Artery Disease (CAD), Deep Vein Thrombosis (DVT) Additional Family Medical History / Comment(s): Heartdisease General Exam Limitations: no limitations General appearance: alert, in no apparent distress Head exam: Present: atraumatic, normocephalic, normal inspection Eye exam: Present: normal appearance, PERRL, EOMI. Absent: scleral icterus, conjunctival injection, periorbital swelling ENT exam: Present: normal exam, mucous membranes moist Neck exam: Present: normal inspection. Absent: tenderness, meningismus, lymphadenopathy Respiratory exam: Present: normal lung sounds bilaterally. Absent: respiratory distress, wheezes, rales, rhonchi, stridor Cardiovascular Exam: Present: regular rate, normal rhythm, normal heart sounds. Absent: systolic murmur, diastolic murmur, rubs, gallop, clicks GI/Abdominal exam: Present: soft, normal bowel sounds. Absent: distended, tenderness, guarding, rebound, rigid Extremities exam: Present: normal inspection, full ROM, normal capillary refill. Absent: tenderness, pedal edema, joint swelling, calf tenderness Back exam: Present: normal inspection Neurological exam: Present: alert, oriented X3, CN II-XII intact Psychiatric exam: Present: normal affect, normal mood Skin exam: Present: warm, dry, intact, normal color. Absent: rash Course Vital Signs 05/31/22 05/31/22 11:53 14:41 Temperature 97.3 F L Pulse Rate 63 71 Respiratory 18 18 Rate Blood Pressure 124/92 126/74 O2 Sat by Pulse 99 100 Oximetry Chest Pain MDM - MDM Was pt. sent in by a medical professional or institution (, PA, BINDERY MACHINE OPERATOR, urgent care, hospital, or [facility]...) When possible be specific @ -No Did you speak to anyone other than the patient for history (EMS, parent, family, police, friend...)? What history was obtained from this source @ -No Did you review nursing and triage notes (agree or disagree)? Why? @ -I reviewed and agree with nursing and triage notes Were old charts reviewed (outside hosp., previous admission, EMS record, old EKG, old radiological studies, urgent care reports/EKG's, [facility] records)? Report findings @ -No Differential Diagnosis (chest pain, altered mental status, abdominal pain women, abdominal pain men, vaginal bleeding, weakness, fever, dyspnea, syncope, headache, dizziness, GI bleed, back pain, seizure, CVA, palpatations, mental health, musculoskeletal)? @ -acs, chest wall strain, pleurisy, costochondritis EKG interpreted by me (3pts min.). @ -Yes X-rays interpreted by me (1pt min.). @ -Yes CT interpreted by me (1pt min.). @ -Not done U/S interpreted by me (1pt. min.). @ -Not done What testing was considered but not performed or refused? (CT, X-rays, U/S, labs)? Why? @ -None What meds were considered but not given or refused? Why? @ -None Did you discuss the management of the patient with other professionals (professionals i.e. , PA, BINDERY MACHINE OPERATOR, lab, RT, psych nurse, community mental health social worker, baseball club manager, teacher, quality officer, business case analyst)? Give summary @ -No Was smoking cessation discussed for >3mins.? @ -No Was critical care preformed (if so, how long)? @ -No Were there social determinants of health that impacted care today? How? (Homelessness, low income, unemployed, alcoholism, drug addiction, transportation, low edu. Level, literacy, decrease access to med. care, fpc, rehab)? @ -No Was there de-escalation of care discussed even if they declined (Discuss DNR or withdrawal of care, Hospice)? DNR status @ -No What co-morbidities impacted this encounter? (DM, HTN, Smoking, COPD, CAD, Cancer, CVA, ARF, Chemo, Hep., AIDS, mental health diagnosis, sleep apnea, morbid obesity)? @ -None Was patient admitted / discharged? Hospital course, mention meds given and route, prescriptions, significant lab abnormalities, going to OR and other pertinent info. @ -Upon arrival patient was placed in room 7. History and physical exam was performed. IV access established laboratory studies were conducted. Troponin negative. Chest x-ray, trace no acute process. 12-lead EKG unremarkable. Patient reevaluated and was stating that she has developed a headache throughout her stay and is requesting "migraine cocktail" - specifically dilaudid and magnesium. Patient given this medication. Will be discharged home and instructed to follow-up with her primary care doctor for further evaluation. Recommend echo and Holter monitoring. Patient was agreeable this and she is discharged home in stable condition Undiagnosed new problem with uncertain prognosis? @ -yes Drug Therapy requiring intensive monitoring for toxicity (Heparin, Nitro, Insulin, Cardizem)? @ -No Were any procedures done? @ -No Diagnosis/symptom? @ -acute chest pain, acute cephalgia Acute, or Chronic, or Acute on Chronic? @ -acute Uncomplicated (without systemic symptoms) or Complicated (systemic symptoms)? @ -complicated Side effects of treatment? @ -No Exacerbation, Progression, or Severe Exacerbation? @ -No Poses a threat to life or bodily function? How? (Chest pain, [place], CA, pneumonia, PE, COPD, DKA, ARF, appy, cholecystitis, CVA, Diverticulitis, Homicidal, Suicidal, threat to staff... and all critical care pts) @ -no Disposition Clinical Impression: Chest pain Disposition: HOME SELF-CARE Condition: Stable Instructions (If sedation given, give patient instructions): Chest Pain (ED) Additional Instructions: Please follow-up with your primary care doctor in regards to her symptoms. I recommended echo and Holter monitoring. Return for any new or worsening symptoms Is patient prescribed a controlled substance at d/c from ED?: No Referrals: David Ring MD [Primary Care Provider] - 1-2 days Time of Disposition: 13:41
[2022-05-31] MEDS ORDERED: METOCLOPRAMIDE 5 MG/ML 2 ML VIAL IVP STA (13:47)
[2022-05-31] MEDS ORDERED: MAGNESIUM OXIDE 400 MG TAB PO STA (13:47)
[2022-05-31] MEDS ORDERED: HYDROmorphone 0.5 MG/0.5 ML SYRINGE IVP STA (13:47)
[2022-05-31] MEDS ORDERED: diphenhydrAMINE 50 MG/ML 1 ML VIAL IVP STA (13:47)
[2022-05-31 14:42] VITALS: BP 126/74; PULSE 71
== END 2022-05-31 14:51 | disposition home or self-care (01) ==
LOC: EC 11:51
DX: R07.89 Other chest pain (principal); K21.9 Gastro-esophageal reflux disease without esophagitis; F41.9 Anxiety disorder, unspecified; F12.90 Cannabis use, unspecified, uncomplicated; Z79.899 Other long term (current) drug therapy; Z88.0 Allergy status to penicillin; Z88.1 Allergy status to other antibiotic agents; Z88.2 Allergy status to sulfonamides
CPT/HCPCS: 99285; 36415; 80053; 83690; 83735; 84484; 85025; 85610; 85730; 81025; 71046; 96374; 96375 ×2; J1200; J2765; J1170

== ENCOUNTER → 2022-06-11 | Outpatient (CLI) | payer OTHER ==
--- NOTE | 2022-06-11 22:22 | MR ---
EXAMINATION TYPE: MR brain wo/w con DATE OF EXAM: 06/11/2022 9:29 AM CLINICAL INDICATION:Female, 31 years old with history of G93.5; F/U TO CT ABN, MIGRAINES, DIZZINESS, LT SIDE WEAKNESS COMPARISON: 05/20/2022 CT TECHNIQUE: Multi planar, multi sequence imaging was performed through the brain including: T1, T2, In version recovery, susceptibility weighted imaging and gradient echo imaging and Diffusion weighted im aging. The patient was then given intravenous contrast and multi planar, T1 fat-saturation images wer e obtained. IV Contrast: 5.5 cc Gadavist FINDINGS: The causey-white junctions, ventricular system, basal cisterns appear unremarkable. Diffusion-weighted imaging shows no evidence of restricted diffusion to suggest acute/subacute infarct. Intracranial art erial flow voids are maintained. Midline structures show no abnormality. The susceptibility weighted images do not reveal any evidence for micro-hemorrhage. After administration of gadolinium, no abnorm al enhancement is seen. The bone marrow signal is within normal limits. Paranasal sinuses and mastoid air cells: No significant paranasal sinus disease. Visualized orbits: Orbital contents are intact. IMPRESSION: No evidence of intracranial mass, acute/subacute infarct, or abnormal enhancement. No evidence for d emyelination.
== END | disposition home or self-care (01) ==
LOC: RADMRIMAIN 08:43
PROVIDERS: ATTEND Internal Medicine
DX: G93.5 Compression of brain (principal); G43.909 Migraine, unspecified, not intractable, without status migrainosus
CPT/HCPCS: 70553; A9585

== ENCOUNTER → 2023-03-20 | Day surgery (SDC) | payer OTHER ==
[2023-03-17 11:55] VITALS: BMI 21.9
[~2023-03-20] MED LIST changes: -Acetaminophen-Codeine 300-30mg TAB ONE; -Acetaminophen-Codeine 300-30mg TAB PO ONE; -BUPIVACAINE (PF) 0.25% 30 ML VIAL SQ ONE; -DEXAMETHASONE SOD PHOSPHATE 10 MG/ML 1 ML VIAL IV ONE; -GLYCOPYRROLATE 0.2 MG/ML 2 ML VIAL ONE; -LACTATED RINGERS 1,000 ML IV SCH; -LIDOCAINE 1% (10MG/ML) FOR IV START INTRADERMA PRN; -LIDOCAINE 1% INJ 10MG/ML (20 ML MDV) ONE; -MIDAZOLAM 2 MG/2 ML VIAL IV PRN; -MIDAZOLAM 2 MG/2 ML VIAL ONE; -NEOSTIGMINE 1 MG/ML 10 ML VIAL ONE; -PROPOFOL 10 MG/ML 20 ML VIAL IV ONE; -Pre Op ABX Message 1 EACH MISC MISCELLANE ONE; -ROCURONIUM 10 MG/ML (5 ML VIAL) IV ONE; -SCOPOLAMINE 1.5MG/72HR PATCH TRANSDERM ONE; +SODIUM CHLORIDE 0.9% 1,000 ML IV SCH; -SUCCINYLCHOLINE CHLORIDE 100 MG/5 ML SYR IV ONE; -diphenhydrAMINE 50 MG/ML 1 ML VIAL IVP ONE; -fentaNYL (PF) 50 MCG/ML 2 ML AMP IVP PRN; -fentaNYL (PF) 50 MCG/ML 2 ML AMP ONE
[2023-03-20 13:00] VITALS: BP 108/72; PULSE 62; RESP 18; TEMP 98.2
--- NOTE | 2023-03-20 18:13 | P.EPPROC ---
- EP Procedure Note Electrophysiology Procedure Note: Diagnosis Recurrent presyncope Twelve-lead EKG shows sinus rhythm normal SD narrow QRS normal ST segments normal QT interval Tilt table test per protocol Baseline blood pressure 107/66. His mercury Baseline heart rate 71 beats a minute Patient was tilted upright at an angle of 70 per protocol No significant change in the heart or blood pressure When she felt sick to her stomach her blood pressure was 111/75 mmHg in the heart rate was between 88-98 beats a minute No evidence for neurocardiogenic syncope Impression Normal twelve-lead EKG Normal heart rate and blood pressure response to upright tilting
== END ==
LOC: CATHEP 12:15
PROVIDERS: ATTEND Internal Medicine Clinical Cardiac Electrophysiology
DX: R55 Syncope and collapse (principal)
CPT/HCPCS: 81025; 93660

== ENCOUNTER → 2023-04-24 | Outpatient (CLI) | payer OTHER ==
--- NOTE | 2023-04-24 11:36 | CT ---
EXAMINATION TYPE: CT lumbar spine wo con CT DLP: 1031 mGycm, Automated exposure control for dose reduction was used. DATE OF EXAM: 04/24/2023 10:42 AM COMPARISON: 08/26/2021.. CLINICAL INDICATION:Female, 32 years old with history of M67.40 GANGLION, UNSPECIFIED SITE; PHH, poss ible ganglion cyst/pain TECHNIQUE: Multiple axial images were obtained from the midportion of T11 through the sacroiliac filemon nts. Soft tissue and bone windows in coronal and sagittal planes were obtained and reviewed. 3-D ref ormats of the bones were created on a separate workstation and submitted for review. Contrast used: mL of , (None, if empty). Oral contrast used: (None, if empty). FINDINGS: Alignment: There are 5 lumbar type vertebral bodies within normal alignment. Bone: No significant degeneration changes. There is transitional vertebrae. Discs: T12-L1: No spinal canal or neural foraminal stenosis is identified. L1-L2: No spinal canal or neural foraminal stenosis is identified. L2-L3: No spinal canal or neural foraminal stenosis is identified. L3-L4: No spinal canal or neural foraminal stenosis is identified. L4-L5: No spinal canal or neural foraminal stenosis is identified. L5-S1: No spinal canal or neural foraminal stenosis is identified. Other: Right ovarian 2.7 cm dominant follicle. Tubal ligation clips are present. The uterus may be rosenthal rgically absent. IMPRESSION: 1. No evidence for spinal fracture. 2. No evidence for ganglion cyst or subcutaneous lesion. 3. Transitional vertebrae correlate for Bertolotti syndrome if the patient has pain.
== END | disposition home or self-care (01) ==
LOC: RADCTMAIN 09:48
PROVIDERS: ATTEND Internal Medicine
DX: Q76.49 Other congenital malformations of spine, not associated with scoliosis (principal); M67.40 Ganglion, unspecified site
CPT/HCPCS: 72131

== ENCOUNTER 2023-06-16 16:45 | Emergency (ER) | payer OTHER ==
--- NOTE | 2023-06-16 17:30 | ED ---
Headache HPI - General Source: patient, family, RN notes reviewed Mode of arrival: ambulatory Limitations: no limitations <Makeda Bonilla - Last Filed: 06/16/23 20:18> <Uvaldo Jruado - Last Filed: 06/17/23 03:57> - General Chief Complaint: Headache Stated Complaint: Headache Time Seen by Provider: 06/16/23 17:28 - History of Present Illness Initial Comments: 32-year-old female presented to the ER with a chief complaint of a migraine. Patient has a known history of migraines and is prescribed Topamax. She states she has been taking Topamax and ibuprofen without relief. She also reports for the past couple days she has noticed swelling and pain in "all of her joints". Swelling has since resolved. Patient mentions while getting her hair dyed by a friend yesterday her friend noticed multiple bumps on the back of her scalp. She denies any tenderness with these bumps. She describes a unintentional 10 pound weight loss and frequent daily nosebleeds for the past month. She states her appetite is "normal". Denies any fevers, chills, cough, congestion, diarrhea/constipation, urinary complaints. Denies any double/blurry vision, nausea, vomiting or weakness. (Makeda Bonilla) - Related Data Home Medications Medication Instructions Recorded Confirmed Sertraline [Zoloft] 100 mg PO HS 05/20/22 03/20/23 Azelastine HCl [Astepro] 2 spray NASAL BID 03/17/23 03/20/23 Fluticasone Nasal [place] [Flonase 1 spray EA NOSTRIL DAILY 03/17/23 03/20/23 Nasal [place]] Gabapentin [Neurontin] 100 mg PO BID 03/17/23 03/20/23 Lisdexamfetamine Dimesylate 20 mg PO QAM 03/17/23 03/20/23 [Vyvanse] Metoprolol Succinate [Metoprolol 12.5 mg PO HS 03/17/23 03/20/23 Succinate ER] Montelukast [Singulair] 10 mg PO HS 03/17/23 03/20/23 Topiramate [Topamax] 50 mg PO BID 03/17/23 03/20/23 Ubrogepant [Ubrelvy] 100 mg PO BID PRN 03/17/23 03/20/23 methocarbamoL [Robaxin] 500 mg PO BID PRN 03/17/23 03/20/23 Allergies Allergy/AdvReac Type Severity Reaction Status Date / Time Penicillins Allergy lips Verified 06/16/23 17:13 swelling Sulfa (Sulfonamide Allergy Rash/Hives Verified 06/16/23 17:13 Antibiotics) Review of Systems ROS Other: All systems not noted in ROS Statement are negative. <Makeda Bonilla - Last Filed: 06/16/23 20:18> ROS Other: All systems not noted in ROS Statement are negative. <Uvaldo Jurado - Last Filed: 06/17/23 03:57> ROS Statement: Those systems with pertinent positive or pertinent negative responses have been documented in the HPI. Past Medical History Past Medical History: GERD/Reflux Additional Past Medical History / Comment(s): Gestational diabetes, Migraines, SEASONAL ALLERGIES, HAS BEEN HAVING ISSUES WITH B/P GOING LOW AND HR GOING HIGH FOR PAST 6-9 MONTHS History of Any Multi-Drug Resistant Organisms: None Reported Past Surgical History: Hysterectomy, Tubal Ligation Additional Past Surgical History / Comment(s): wisdom teeth removed Past Anesthesia/Blood Transfusion Reactions: No Reported Reaction Past Psychological History: ADD/ADHD, Anxiety Smoking Status: Never smoker Past Alcohol Use History: None Reported Past Drug Use History: Marijuana - Past Family History Father History Unknown: Yes Family Medical History: Coronary Artery Disease (CAD), Deep Vein Thrombosis ( DVT) Additional Family Medical History / Comment(s): Heartdisease <Makeda Bonilla - Last Filed: 06/16/23 20:18> General Exam Limitations: no limitations General appearance: alert, in no apparent distress Head exam: Present: atraumatic, normocephalic, normal inspection Eye exam: Present: normal appearance, PERRL, EOMI. Absent: scleral icterus, conjunctival injection, periorbital swelling Pupils: Present: normal accommodation ENT exam: Present: normal exam, normal oropharynx, mucous membranes moist Neck exam: Present: normal inspection. Absent: tenderness, meningismus, lymphadenopathy Respiratory exam: Present: normal lung sounds bilaterally. Absent: respiratory distress, wheezes, rales, rhonchi, stridor Cardiovascular Exam: Present: regular rate, normal rhythm, normal heart sounds. Absent: systolic murmur, diastolic murmur, rubs, gallop, clicks GI/Abdominal exam: Present: soft, normal bowel sounds. Absent: distended, tenderness, guarding, rebound, rigid Extremities exam: Present: normal inspection, full ROM, normal capillary refill. Absent: tenderness, pedal edema, joint swelling, calf tenderness Neurological exam: Present: alert, oriented X3, CN II-XII intact Psychiatric exam: Present: normal affect, normal mood Skin exam: Present: warm, dry, intact, normal color. Absent: rash <Makeda Bonilla - Last Filed: 06/16/23 20:18> Course Vital Signs 06/16/23 06/16/23 17:08 22:28 Temperature 98.2 F Pulse Rate 74 74 Respiratory 16 18 Rate Blood Pressure 121/77 94/50 O2 Sat by Pulse 100 99 Oximetry Medical Decision Making - Lab Data Result diagrams: 06/16/23 18:38 <Makeda Bonilla - Last Filed: 06/16/23 20:18> - Lab Data Result diagrams: 06/16/23 18:38 06/16/23 18:38 <Uvaldo Jurado - Last Filed: 06/17/23 03:57> - Medical Decision Making Was pt. sent in by a medical professional or institution ([facility] Ken, SUPERVISOR METAL FURNITURE FABRICATION, urgent care, hospital, or [facility]...) When possible be specific @ -No Did you speak to anyone other than the patient for history (EMS, parent, family, police, friend...)? What history was obtained from this source @ -No Did you review nursing and triage notes (agree or disagree)? Why? @ -I reviewed and agree with nursing and triage notes Were old charts reviewed (outside hosp., previous admission, EMS record, old EKG, old radiological studies, urgent care reports/EKG's, [facility] records)? Report findings @ -No old charts were reviewed Differential Diagnosis (chest pain, altered mental status, abdominal pain women, abdominal pain men, vaginal bleeding, weakness, fever, dyspnea, syncope, headache, dizziness, GI bleed, back pain, seizure, CVA, palpatations, mental health, musculoskeletal)? @ -Differential Headache: Migraine, tension, cluster, carbon monoxide, central venous thrombosis, pension karma temporal arteritis, acute closure glaucoma, intercranial hemorrhage, mastoiditis, sinusitis, head injury, this is not meant to be an all-inclusive list. EKG interpreted by me (3pts min.). @ -None X-rays interpreted by me (1pt min.). @ -None done CT interpreted by me (1pt min.). @ -CT brain interpreted by me negative for acute process. U/S interpreted by me (1pt. min.). @ -None done What testing was considered but not performed or refused? (CT, X-rays, U/S, labs)? Why? @ -None What meds were considered but not given or refused? Why? @ -None Did you discuss the management of the patient with other professionals (professionals i.e. , PA, SUPERVISOR METAL FURNITURE FABRICATION, lab, RT, psych nurse, addiction social worker, personal protection specialist, teacher, special weapons unit officer, supportive employment case manager)? Give summary @ -No Was smoking cessation discussed for >3mins.? @ -No Was critical care preformed (if so, how long)? @ -No Were there social determinants of health that impacted care today? How? (Homelessness, low income, unemployed, alcoholism, drug addiction, transportation, low edu. Level, literacy, decrease access to med. care, senior living, rehab)? @ -No Was there de-escalation of care discussed even if they declined (Discuss DNR or withdrawal of care, Hospice)? DNR status @ -No What co-morbidities impacted this encounter? (DM, HTN, Smoking, COPD, CAD, Cancer, CVA, ARF, Chemo, Hep., AIDS, mental health diagnosis, sleep apnea, morbid obesity)? @ -Migraine Was patient admitted / discharged? Hospital course, mention meds given and route, prescriptions, significant lab abnormalities, going to OR and other pertinent info. @ -[32-year-old female presented to the ER with a chief complaint of headache. History and physical exam completed. Vitals stable. Patient in no signs of acute distress and nontoxic-appearing. No acute neurological findings on exam. Patient received headache cocktail including Solu-Medrol, Benadryl, Toradol without improvement of symptoms. CT brain performed per patient's request. CBC and CMP pending. Patient signed out to Uvaldo Jurado PA-C and lab results and disposition. (Makeda Bonilla) Patient was signed out to me from Makeda Bonilla PA-C. In short this is a 32-year-old female presenting with chief complaint of headache. Patient has history of migraines. CT of the brain shows no acute process. CBC and CMP requires no action. On my first evaluation of the patient she was complaining of continued headache, patient was given morphine. On my next assessment of the patient she reports improvement in her pain. I asked the patient if she feels ready for discharge home and she answers yes. Discharged home. Follow-up with PCP. Report back to ER with any new or worsening symptoms. Discussed return parameters and answered all questions. Patient conveyed verbal understanding and agreed to the plan. I discussed this case in detail with my attending Dr. Terrazas [facility] - Lab Data Lab Results 06/16/23 06/16/23 Range/Units 18:38 18:38 WBC 5.3 (3.8-10.6) k/uL RBC 3.67 L (3.80-5.40) m/uL Hgb 11.3 L (11.4-16.0) gm/dL Hct 34.2 (34.0-46.0) % MCV 93.2 (80.0-100.0) fL MCH 30.7 (25.0-35.0) pg MCHC 33.0 (31.0-37.0) g/dL RDW 12.8 (11.5-15.5) % Plt Count 234 (150-450) k/uL MPV 7.8 Sodium 141 (137-145) mmol/L Potassium 4.4 (3.5-5.1) mmol/L Chloride 116 H (98-107) mmol/L Carbon Dioxide 18 L (22-30) mmol/L Anion Gap 7 mmol/L BUN 14 (7-17) mg/dL Creatinine 0.64 (0.52-1.04) mg/dL Est GFR (CKD-EPI)AfAm >90 (>60 ml/min/1.73 sqM) Est GFR (CKD-EPI)NonAf >90 (>60 ml/min/1.73 sqM) Glucose 77 (74-99) mg/dL Calcium 8.0 L (8.4-10.2) mg/dL Total Bilirubin 0.7 (0.2-1.3) mg/dL AST 39 H (14-36) U/L ALT 23 (4-34) U/L Alkaline Phosphatase 73 (38-126) U/L Total Protein 6.3 (6.3-8.2) g/dL Albumin 3.6 (3.5-5.0) g/dL Disposition <Makeda Bonilla - Last Filed: 06/16/23 20:18> Is patient prescribed a controlled substance at d/c from ED?: No Time of Disposition: 22:12 <Uvaldo Jurado - Last Filed: 06/17/23 03:57> Clinical Impression: Headache Disposition: HOME SELF-CARE Condition: Good Instructions (If sedation given, give patient instructions): Acute Headache (ED) Additional Instructions: Follow-up with PCP. Report back to ER with any new or worsening symptoms. Referrals: David Ring MD [Primary Care Provider] - 1-2 days
[2023-06-16 17:40] VITALS: PULSE 74; TEMP 98.2
[2023-06-16] MEDS: SODIUM CHLORIDE 0.9% 1,000 ML IV STA (17:50)
[2023-06-16] MEDS: methylPREDNISolone SOD SUCCI 125 MG/2 ML VIAL IV STA (17:50)
[2023-06-16] MEDS: KETOROLAC 15 MG/ML 1 ML VIAL IVP STA (17:50)
[2023-06-16] MEDS ORDERED: methylPREDNISolone SOD SUCCI 125 MG/2 ML VIAL ONE (17:50)
[2023-06-16] MEDS: diphenhydrAMINE 50 MG/ML 1 ML VIAL IVP STA (17:51)
[2023-06-16 18:51] LABS: HCT 34.2 % (34.0-46.0); HGB 11.3 gm/dL (11.4-16.0); MCH 30.7 pg (25.0-35.0); MCV 93.2 fL (80.0-100.0); Mean Platelet Volume 7.8; Platelet Count 234 k/uL (150-450); RBC 3.67 m/uL (3.80-5.40); RDW 12.8 % (11.5-15.5); WBC 5.3 k/uL (3.8-10.6)
[2023-06-16] MEDS: CAFFEINE-SODIUM BENZOATE 500 MG in SODIUM CHLORIDE 0.9% 1,000 ML IVPB ONE (19:21)
--- NOTE | 2023-06-16 19:23 | CT ---
EXAMINATION TYPE: CT brain wo con DATE OF EXAM: 06/16/2023 COMPARISON: 05/20/2022 HISTORY: headache. CT DLP: 1201.1 mGycm. Automated Exposure Control for Dose Reduction was Utilized. TECHNIQUE: CT scan of the head is performed without contrast. Findings: The ventricles, basal cisterns and sulci over the convexities are within normal limits and there is n o mass effect or shift of midline structures. No abnormal density is seen throughout the brain parenchyma and there is no acute intra or extra-axia l hemorrhage. The posterior fossa including the brainstem, fourth ventricle and cerebellar pontine angles appear no rmal. As noted previously the cerebellar tonsils are low-lying possibly indicating Chiari I malformat ion. Intraorbital contents appear normal and symmetric. Visualized paranasal sinuses and mastoid air cells are well aerated. The calvarium is intact. IMPRESSION: 1. No acute bleed or mass effect. 2. Low-lying cerebellar tonsils unchanged compared to previous.
[2023-06-16 20:51] LABS: ALT 23 U/L (4-34); African American GFR (CKD) >90 (>60 ml/min/1.73 sqM); Anion Gap 7 mmol/L; Blood Urea Nitrogen 14 mg/dL (7-17); Carbon Dioxide 18 mmol/L (22-30); Chloride 116 mmol/L (98-107); Glucose 77 mg/dL (74-99); Non-African American GFR(CKD) >90 (>60 ml/min/1.73 sqM); Sodium 141 mmol/L (137-145); Total Bilirubin 0.7 mg/dL (0.2-1.3)
[2023-06-16 21:05] LABS: AST 39 U/L (14-36); Albumin 3.6 g/dL (3.5-5.0); Alkaline Phosphatase 73 U/L (38-126); Potassium 4.4 mmol/L (3.5-5.1); Total Protein 6.3 g/dL (6.3-8.2)
[2023-06-16] MEDS: MORPHINE SULFATE 4 MG/ML SYRINGE IVP STA (21:41)
[2023-06-16 22:37] VITALS: BP 94/50; RESP 18
== END 2023-06-16 22:32 | disposition home or self-care (01) ==
LOC: EC 16:45
DX: G43.909 Migraine, unspecified, not intractable, without status migrainosus (principal); Z88.0 Allergy status to penicillin; Z88.2 Allergy status to sulfonamides
CPT/HCPCS: 36415; 80053; 85027; 70450; 99284; 96365; 96375 ×4; 96361; J2270; J1200; J1885; J2919

== ENCOUNTER → 2023-07-02 | Outpatient (CLI) | payer OTHER ==
[2023-07-02 14:46] LABS: Reticulocyte % 1.93 % (0.10-1.80)
[2023-07-02 15:39] LABS: % Iron Saturation 12.92 (12.00-45.00)
[2023-07-02 16:52] LABS: DNA Double-Stranded Indetermin (Negative)
[2023-07-03 13:49] LABS: C-ANCA <1:20 Titer (<1:20)
[2023-07-04 09:07] LABS: Histone Antibody 0.5 UNITS (<1.0)
== END | disposition home or self-care (01) ==
LOC: LABWHC1 10:16
PROVIDERS: ATTEND Internal Medicine
DX: D64.9 Anemia, unspecified (principal)
CPT/HCPCS: 36415; 82607; 82728; 82746; 83010; 83516; 83540; 83550; 83615; 85045; 86225; 86235; 86255

== ENCOUNTER → 2023-07-11 | Outpatient (CLI) | payer OTHER ==
--- NOTE | 2023-07-12 06:26 | MR ---
EXAMINATION TYPE: MR lumbar spine wo con DATE OF EXAM: 07/11/2023 COMPARISON: None HISTORY: Low back pain that radiates down right leg for 1 year, history of lipoma removal 07-08-23. TECHNIQUE: Multiplanar, multisequence images of the lumbar spine were acquired without IV contrast. Findings: The lumbar vertebral segments are normal in height and alignment is no fracture or subluxation. There is no significant degenerative disc disease as the disks are well-maintained in height and sign al intensity. No circumferential disc bulge, disc protrusion or herniation. The conus medullaris and cauda equina appear normal and there is no spinal stenosis or neural foramin al stenosis. The facet joints are intact. The visualized sacrum and SI joints normal. The paraspinal soft tissues are unremarkable. IMPRESSION: No significant abnormality seen.
== END | disposition home or self-care (01) ==
LOC: RADMRIMAIN 19:02
PROVIDERS: ATTEND Orthopaedic Surgery
DX: M54.16 Radiculopathy, lumbar region (principal)
CPT/HCPCS: 72148

== ENCOUNTER 2023-07-15 19:10 | Emergency (ER) | payer OTHER ==
[2023-07-15 20:57] LABS: Basophils # (A) 0.1 k/uL (0-0.2); Basophils % (A) 1 %; Eosinophils # (A) 0.1 k/uL (0-0.7); Eosinophils % (A) 3 %; HCT 39.3 % (34.0-46.0); HGB 12.9 gm/dL (11.4-16.0); Lymphocytes # (A) 2.1 k/uL (1.0-4.8); Lymphocytes % (A) 38 %; MCH 31.2 pg (25.0-35.0); MCHC 32.9 g/dL (31.0-37.0); MCV 94.7 fL (80.0-100.0); Mean Platelet Volume 7.7; Monocytes # (A) 0.3 k/uL (0-1.0); Monocytes % (A) 6 %; Neutrophils # (A) 2.9 k/uL (1.3-7.7); Neutrophils % (A) 51 %; Platelet Count 260 k/uL (150-450); RBC 4.15 m/uL (3.80-5.40); RDW 12.6 % (11.5-15.5); WBC 5.6 k/uL (3.8-10.6)
[2023-07-15] MEDS: ASPIRIN 81 MG PO STA (21:06)
[2023-07-15] MEDS: SODIUM CHLORIDE 0.9% 1,000 ML IV STA (21:09)
[2023-07-15 21:10] LABS: ALT 19 U/L (4-34); AST 24 U/L (14-36); African American GFR (CKD) >90 (>60 ml/min/1.73 sqM); Albumin 4.3 g/dL (3.5-5.0); Alkaline Phosphatase 65 U/L (38-126); Anion Gap 6 mmol/L; Blood Urea Nitrogen 18 mg/dL (7-17); Calcium 9.1 mg/dL (8.4-10.2); Carbon Dioxide 25 mmol/L (22-30); Chloride 109 mmol/L (98-107); Glucose 83 mg/dL (74-99); Non-African American GFR(CKD) >90 (>60 ml/min/1.73 sqM); Potassium 4.4 mmol/L (3.5-5.1); Sodium 140 mmol/L (137-145); Total Bilirubin 0.3 mg/dL (0.2-1.3); Total Protein 7.1 g/dL (6.3-8.2)
[2023-07-15 21:11] LABS: Partial Thromboplastin Time 24.1 sec (22.0-30.0); Prothrombin Time 10.6 sec (10.0-12.5)
--- NOTE | 2023-07-15 21:53 | ED ---
Chest Pain HPI - General Chief Complaint: Chest Pain Stated Complaint: Back pain-post surgery Time Seen by Provider: 07/15/23 20:31 Source: patient Mode of arrival: ambulatory Limitations: no limitations - History of Present Illness Initial Comments: 32-year-old female present with chief complaint of chest pain. Patient describes this as a sharp chest pain that goes straight to her back. This started earlier today. No shortness of breath. Pain is worse with deep inspiration. No injury or trauma. No nausea, vomiting or abdominal pain. No dizziness. No fevers. No recent travel. No oral contraceptives. No history of blood clots. Patient did have a lipoma removed recently. - Related Data Home Medications Medication Instructions Recorded Confirmed Sertraline [Zoloft] 100 mg PO HS 05/20/22 03/20/23 Azelastine HCl [Astepro] 2 spray NASAL BID 03/17/23 03/20/23 Fluticasone Nasal [place] [Flonase 1 spray EA NOSTRIL DAILY 03/17/23 03/20/23 Nasal [place]] Gabapentin [Neurontin] 100 mg PO BID 03/17/23 03/20/23 Lisdexamfetamine Dimesylate 20 mg PO QAM 03/17/23 03/20/23 [Vyvanse] Metoprolol Succinate [Metoprolol 12.5 mg PO HS 03/17/23 03/20/23 Succinate ER] Montelukast [Singulair] 10 mg PO HS 03/17/23 03/20/23 Topiramate [Topamax] 50 mg PO BID 03/17/23 03/20/23 Ubrogepant [Ubrelvy] 100 mg PO BID PRN 03/17/23 03/20/23 methocarbamoL [Robaxin] 500 mg PO BID PRN 03/17/23 03/20/23 Allergies Allergy/AdvReac Type Severity Reaction Status Date / Time Penicillins Allergy lips Verified 07/15/23 19:25 swelling Sulfa (Sulfonamide Allergy Rash/Hives Verified 07/15/23 19:25 Antibiotics) Review of Systems ROS Statement: Those systems with pertinent positive or pertinent negative responses have been documented in the HPI. ROS Other: All systems not noted in ROS Statement are negative. Past Medical History Past Medical History: GERD/Reflux Additional Past Medical History / Comment(s): Gestational diabetes, Migraines, SEASONAL ALLERGIES, HAS BEEN HAVING ISSUES WITH B/P GOING LOW AND HR GOING HIGH FOR PAST 6-9 MONTHS History of Any Multi-Drug Resistant Organisms: None Reported Past Surgical History: Hysterectomy, Tubal Ligation Additional Past Surgical History / Comment(s): wisdom teeth removed Past Anesthesia/Blood Transfusion Reactions: No Reported Reaction Past Psychological History: ADD/ADHD, Anxiety Smoking Status: Never smoker Past Alcohol Use History: Occasional Past Drug Use History: Marijuana - Past Family History Father History Unknown: Yes Family Medical History: Coronary Artery Disease (CAD), Deep Vein Thrombosis (DVT) Additional Family Medical History / Comment(s): Heartdisease General Exam Limitations: no limitations General appearance: alert, in no apparent distress Head exam: Present: atraumatic, normocephalic Eye exam: Present: normal appearance, EOMI Neck exam: Present: normal inspection. Absent: meningismus Respiratory exam: Present: normal lung sounds bilaterally. Absent: respiratory distress, wheezes, rales, rhonchi, stridor, chest wall tenderness Cardiovascular Exam: Present: regular rate, normal rhythm, normal heart sounds. Absent: systolic murmur, diastolic murmur, rubs, gallop, clicks Neurological exam: Present: alert, oriented X3 Psychiatric exam: Present: normal affect, normal mood Skin exam: Present: warm, dry Course Vital Signs 07/15/23 07/15/23 07/16/23 19:24 23:29 00:36 Temperature 98.2 F 98.1 F Pulse Rate 92 72 74 Respiratory 18 16 18 Rate Blood Pressure 110/71 103/65 106/70 O2 Sat by Pulse 100 98 98 Oximetry Chest Pain MDM - MDM Was pt. sent in by a medical professional or institution (, PA, LABORATORY SUPERVISOR, urgent care, hospital, or [facility]...) When possible be specific @ -No Did you speak to anyone other than the patient for history (EMS, parent, family, police, friend...)? What history was obtained from this source @ -No Did you review nursing and triage notes (agree or disagree)? Why? @ -I reviewed and agree with nursing and triage notes Were old charts reviewed (outside hosp., previous admission, EMS record, old EKG, old radiological studies, urgent care reports/EKG's, [facility] records)? Report findings @ -No old charts were reviewed Differential Diagnosis (chest pain, altered mental status, abdominal pain women, abdominal pain men, vaginal bleeding, weakness, fever, dyspnea, syncope, headache, dizziness, GI bleed, back pain, seizure, CVA, palpatations, mental health, musculoskeletal)? @ -MDM Differential Chest Pain: Stable Angina, Unstable Angina, STEMI, NSTEMI Aortic Dissection, Pneumothorax, Musculoskeletal, Esophageal Spasm GERD, Cholecystitis, Pancreatitis, Zoster This is not meant to be an all-inclusive list. EKG interpreted by me (3pts min.). @ -EKG shows sinus rhythm ventricular rate 76. WI interval 121. QRS 76. QT 347. QTc 377. X-rays interpreted by me (1pt min.). @ -X-ray shows no acute cardiopulmonary abnormality CT interpreted by me (1pt min.). @ -None done U/S interpreted by me (1pt. min.). @ -None done What testing was considered but not performed or refused? (CT, X-rays, U/S, labs)? Why? @ -None What meds were considered but not given or refused? Why? @ -None Did you discuss the management of the patient with other professionals (professionals i.e. , PA, LABORATORY SUPERVISOR, lab, RT, psych nurse, healthcare social worker, railroad commissioner, teacher, tactical response group officer, therapeutic case manager)? Give summary @ -No Was smoking cessation discussed for >3mins.? @ -No Was critical care preformed (if so, how long)? @ -No Were there social determinants of health that impacted care today? How? (Homelessness, low income, unemployed, alcoholism, drug addiction, transportation, low edu. Level, literacy, decrease access to med. care, fdc, rehab)? @ -No Was there de-escalation of care discussed even if they declined (Discuss DNR or withdrawal of care, Hospice)? DNR status @ -No What co-morbidities impacted this encounter? (DM, HTN, Smoking, COPD, CAD, Cancer, CVA, ARF, Chemo, Hep., AIDS, mental health diagnosis, sleep apnea, morbid obesity)? @ -Recent surgery Was patient admitted / discharged? Hospital course, mention meds given and route, prescriptions, significant lab abnormalities, going to OR and other pertinent info. @ -32-year-old female presenting with chief complaint of chest pain. History and physical exam are conducted. Lab work shows no leukocytosis or anemia. Negative D-dimer and troponin. Remainder of lab work requires no further action. Chest x-ray shows no acute cardiopulmonary abnormality and EKG shows sinus rhythm. On reassessment the patient is resting comfortably showing no acute signs of distress. She is educated on today's findings. Discharged home. Follow-up with PCP. Report back to ER with any new or worsening symptoms. Discussed return parameters and answered all questions. Patient conveyed verbal understanding and agreed to the plan. I discussed this case in detail with my attending Dr. Terrazas Undiagnosed new problem with uncertain prognosis? @ -No Drug Therapy requiring intensive monitoring for toxicity (Heparin, Nitro, Insul in, Cardizem)? @ -No Were any procedures done? @ -No Diagnosis/symptom? @ -Atypical chest pain Acute, or Chronic, or Acute on Chronic? @ -Acute Uncomplicated (without systemic symptoms) or Complicated (systemic symptoms)? @ -Uncomplicated Side effects of treatment? @ -No Exacerbation, Progression, or Severe Exacerbation? @ -No Poses a threat to life or bodily function? How? (Chest pain, USA, CT, pneumonia, PE, COPD, DKA, ARF, appy, cholecystitis, CVA, Diverticulitis, Homicidal, Suicidal, threat to staff... and all critical care pts) @ -Low likelihood at this time Disposition Clinical Impression: Atypical chest pain Disposition: HOME SELF-CARE Condition: Good Instructions (If sedation given, give patient instructions): Chest Pain (ED) Additional Instructions: Follow-up with PCP. Report back to ER with any new or worsening symptoms. Is patient prescribed a controlled substance at d/c from ED?: No Referrals: David Ring MD [Primary Care Provider] - 1-2 days Time of Disposition: 23:59
[2023-07-15] MEDS: MORPHINE SULFATE 2 MG/ML SYRINGE IVP STA (22:49)
[2023-07-15] MEDS: KETOROLAC 15 MG/ML 1 ML VIAL IVP STA (22:52)
--- NOTE | 2023-07-15 22:54 | XR ---
EXAMINATION TYPE: XR chest 2V DATE OF EXAM: 07/15/2023 9:39 PM CLINICAL INDICATION:Female, 32 years old with history of Chest Pain; [facility] COMPARISON: 05/31/2022 TECHNIQUE: XR chest 2V. Frontal and lateral views of the chest.. FINDINGS: Lines/Tubes/Devices: No indwelling lines are seen. Heart/mediastinum: Heart size is normal. Mediastinum appears normal. Pulmonary vascularity: Not increased, Lungs/Pleura: There is no evidence of pleural effusion, focal consolidation, or pneumothorax. Musculoskeletal: No acute osseous abnormality demonstrated in the limits of the exam. Other findings: None. IMPRESSION: No acute cardiopulmonary abnormality.
[2023-07-15 23:35] LABS: Amorphous Sediment,Urine Few /hpf; Appearance,Urine Cloudy (Clear); Bacteria,Urine Rare /hpf; Bilirubin,Urine Negative (Negative); Blood,Urine Negative (Negative); Color,Urine Colorless; Glucose,Urine (UA) Negative (Negative); Ketones,Urine Negative (Negative); Leukocyte Esterase,Urine Negative (Negative); Mucus,Urine Rare /hpf; Nitrite,Urine Negative (Negative); PH, Urine 7.5 (5.0-8.0); Protein,Urine Negative (Negative); RBC,Urine 1 /hpf (0-5); Squamous Epithelial Cell,Urine 7 /hpf (0-4); Urobilinogen,Urine <2.0 mg/dL (<2.0); WBC,Urine <1 /hpf (0-5)
[2023-07-16 01:00] VITALS: BP 106/70; PULSE 74; RESP 18; TEMP 98.1
== END 2023-07-16 00:38 | disposition home or self-care (01) ==
LOC: EC 19:10
DX: R07.89 Other chest pain (principal); Z88.0 Allergy status to penicillin; Z88.2 Allergy status to sulfonamides
CPT/HCPCS: 36415; 93005; 85379; 80053; 83735; 84484; 85025; 85610; 85730; 81001; 81025; 71046; 99285; 96374; 96375; 96361 ×3; J2270; J1885

== ENCOUNTER → 2023-08-25 | Outpatient (CLI) | payer OTHER ==
[2023-08-25 10:10] VITALS: BP 102/66; PULSE 63; RESP 16; TEMP 96.8
--- NOTE | 2023-08-25 15:00 | P.PAINPG ---
PQRS Measure Charge Sheet Comment: HISTORY OF PRESENT ILLNESS: A 32 yr old female as a referral from Dr Mckinnon presents today w severe and chronic LBP x 1 yr secondary to DDD, spondylosis and facet arthropathy without myelopathy for evaluation. Pt states pain level is provoked at 10 /10 in intensity, constant, localized in the lumbar spine, predominantly axial, achy in character w occasional shooting pain towards the RLE. Pain is provoked by over activity. Pain is alleviated by physician guided home exercises/ stretches daily since Jul 11 2023, medications (Robaxin, Ibu), heat, repositioning and rest . Oswestry axial pain score at 9. PMH: OA, GERD, Migraine HAs, Seasonal Allergies, ADD/ ADHD/ Anxiety PSH: Hysterectomy, Tubal Ligation, Mobile Teeth Extraction SH: Never smoker, Occasional ETOH use, Cannabis use FH: Fa- CAD, DVT All: See list Meds: See list REVIEW OF ORGAN SYSTEMS: CONSTITUTIONAL: No fevers or chills. No recent weight loss. NEUROLOGICAL: + numbness and tingling along the distal extremities. No seizure disorders or headaches. MUSCULOSKELETAL: + pain PSYCHIATRIC: Denies current depression or suicidal thoughts. Physical Examinations : Constitutional : Cooperative , not in acute distress . Neurologic : Cranial nerve II to XII intact. No focal neurological deficits. Psychiatric : alert & oriented x 3. Matching mood & appropriate affect. Judgment & insight intact. Musculoskeletal : Cervical Spine Motor strength in the deltoid and biceps: Normal right side. Normal Left side Motor strength biceps and the wrist extensors: Normal right side . Normal left side Motor strength in the triceps muscle: Normal right side. Normal left side Deep tendon reflexes: Normal at the biceps. Normal at Brachioradialis. Normal at triceps Vertebral body tenderness to deep palpation over Cervical facet loading test: positive bilaterally Spurling test: positive bilaterally Neck distraction test: positive bilaterally Yanira sign: positive bilaterally Lumbar spine Motor strength lower extremities ,thigh and legs 5/5 Right side , 5/5 Left side Deep tendon reflexes : Normal Knee Jerk. Normal Ankle Jerk Vertebral body tenderness over L5 Elliott Test positive R L5-S1 Lumbar facet Loading Test: positive Right / positive Left Range of motion of the lumbar spine Flexion 30 degrees, extension 10 degrees Straight Leg Raise test: Left/ Right positive at degrees Elan test: positive right / positive left. Severe tenderness over the Sacroiliac joint on the Right / Left sides Gaenslen test: positive bilaterally Seated flexion test: positive bilaterally. Sacral spine : Severe tenderness over the Sacroiliac joint: right side / left side Range of motion: Flexion of the lumbar spine <60 degrees Range of motion: Extension of the lumbar spine <20 degrees Gaenslen's Test positive Elan test: positive right side / left side Thigh Thrust Test Sacral Thrust Test Imaging: MRI non contrast of the lumbar spine from 07/11/23 reviewed Assessment/ Plan : Lumbar DDD Recommendation of R TFESI L5-S1 #1. May need a series of injections for optimal pain relief. Risks, benefits of procedure discussed and patient verbalized understanding. Admits to anti- coagulant use or medical history of diabetes. Protocol for discontinuation/ continuation of medications dorian procedure discussed. All questions answered. I have spent greater than 30 minutes on patient care today. Dr Cavlo was available by phone for the evaluation of this patient. The time was used to review the medical records including relevant urine studies and Prescription history (MAPs), review of the available imaging, evaluation and examination of the patient, coordination of care with the medical staff and if applicable [facility] physicians, as well as creation of the medical record PQRS Narrative: Smoking Status Never smoker Home Medications: Ambulatory Orders Sertraline [Zoloft] 100 mg PO HS 05/20/22 Azelastine HCl [Astepro] 2 spray NASAL BID 03/17/23 Fluticasone Nasal [place] [Flonase Nasal [place]] 1 spray EA NOSTRIL DAILY 03/17/23 Gabapentin [Neurontin] 100 mg PO BID 03/17/23 Lisdexamfetamine Dimesylate [Vyvanse] 20 mg PO QAM 03/17/23 Metoprolol Succinate [Metoprolol Succinate ER] 12.5 mg PO HS 03/17/23 Montelukast [Singulair] 10 mg PO HS 03/17/23 Topiramate [Topamax] 50 mg PO BID 03/17/23 Ubrogepant [Ubrelvy] 100 mg PO BID PRN 03/17/23 methocarbamoL [Robaxin] 500 mg PO BID PRN 03/17/23 Controlled Substance Measures - Controlled Substance Measures Is patient prescribed a controlled substance at discharge?: No
== END | disposition home or self-care (01) ==
LOC: PNWHC3 09:55
PROVIDERS: ATTEND Specialist
DX: Q76.49 Other congenital malformations of spine, not associated with scoliosis (principal); M51.17 Intervertebral disc disorders with radiculopathy, lumbosacral region; M47.27 Other spondylosis with radiculopathy, lumbosacral region; Z88.0 Allergy status to penicillin; Z88.2 Allergy status to sulfonamides
CPT/HCPCS: 99211

== ENCOUNTER → 2023-09-16 | Day surgery (SDC) | payer OTHER ==
[~2023-09-16] MED LIST changes: +IOPAMIDOL M200 10 ML VIAL ONE; +LACTATED RINGERS 1,000 ML IV SCH; -SODIUM CHLORIDE 0.9% 1,000 ML IV SCH; +methylPREDNISolone ACETATE 80 MG/ML 1 ML VIAL ONE
[2023-09-16 07:18] VITALS: TEMP 98.2
[2023-09-16 08:28] VITALS: RESP 16
--- NOTE | 2023-09-16 08:28 | P.PCN ---
Date of Procedure: 09/16/23 Procedure(s) Performed: PREOPERATIVE DIAGNOSIS: 1-Lumbar radiculopathy . 2-lumbar degenerative disc disease. POSTOPERATIVE DIAGNOSIS: 1-lumbar radiculopathy. 2-lumbar degenerative disc disease. PROCEDURE 1. Transforaminal epidural steroid injection under fluoroscopic guidance at right L5-S1 level. (Fluoroscopy images stored on file in the radiology Department ) 2. Lumbar epidurogram . ANESTHESIA: Local with 1% lidocaine 3 ml. EBL: Minimal PROCEDURE INDICATION: The patient with low back pain and radiculopathy symptoms unresponsive to conservative treatment. PROCEDURE DESCRIPTION / TECHNIQUE: The patient was seen and identified in the preoperative area. Risks, benefits, complications, and alternatives were discussed with the patient. The patient agreed to proceed with the procedure and signed the consent. IV was started, and vital signs were stable. Patient was taken to the OR and time out was completed. The patient was placed in the prone position on procedure table and a pillow was placed under the abdomen to reduce lumbar lordosis. The lumbosacral area was prepped and draped in the usual sterile fashion. Critical pause was taken. Vital signs were closely monitored during the procedure. Using oblique fluoroscopy, the chin of the `[place] dog at right L5-S1 level was identified, and the skin and deeper tissues just below was localized with 1% lidocaine. Subsequently, a 22-gauge 3.5-inch spinal needle was advanced under a tunneled view fluoroscopic guidance just underneath the chin of the `[place] dog at the right L5-S1 Under lateral fluoroscopy, the needle was then advanced to the posterior border of the interforaminal space. After negative aspiration of CSF and blood and with no paresthesias, 1 mL Isovue 200 contrast dye was injected excellent epidurogram and outlining of the nerve root Subsequently, 3 mL of block solution containing 80 mg Depo-Medrol and 2 mL of 0.9% normal saline PF was injected. Needle was removed. At the end of the procedure, skin was cleansed, and bandages were applied. COMPLICATIONS:none DISPOSITION / PLANS: The patient was placed in a supine position and transferred to the recovery area in a stable condition for observation. There was no evidence of lower extremity motor or sensory deficit after the procedure. Otilio noriega was discharged from the recovery room after meeting discharge criteria. Home discharge instructions were given to the patient by the staff. The patient was reexamined prior to discharge.
[2023-09-16 08:48] VITALS: BP 101/66; PULSE 66
--- NOTE | 2023-09-16 10:22 | FL ---
Intraoperative/procedural fluoroscopic services were provided for lumbar pain management. Total fluor oscopy time is 5.0 seconds with a total of 1 submitted image to PACS. Total DAP [id number] [id number]. Burak olsen see the operative note for further details.
== END ==
LOC: ORPAIN 07:06
PROVIDERS: ATTEND Specialist
DX: M51.16 Intervertebral disc disorders with radiculopathy, lumbar region (principal); Z88.0 Allergy status to penicillin; Z88.2 Allergy status to sulfonamides; Z90.710 Acquired absence of both cervix and uterus
CPT/HCPCS: 64483; Q9966; J1010

== ENCOUNTER → 2023-10-02 | Outpatient (CLI) | payer OTHER ==
[2023-10-02 10:29] VITALS: BP 105/70; PULSE 78; RESP 16
--- NOTE | 2023-10-02 15:04 | P.PAINPG ---
PQRS Measure Charge Sheet Comment: HISTORY OF PRESENT ILLNESS: A 32 yr old female presents today w severe and chronic LBP x 1 yr secondary to DDD, spondylosis and facet arthropathy without myelopathy for evaluation s/p R TFESI L5-S1 #1. Pt states she experienced 80 % pain relief x 2 wks s/p procedure. Pt states pain level is provoked at 6 /10 in intensity, constant, localized in the R lumbar spine, predominantly axial, achy in character w occasional shooting pain towards the back of the R hip. Pain is provoked by standing/ walking for periods > 30 min. Pain is alleviated by physician guided home exercises/ stretches daily since Jul 11 2023, medications, heat, repositioning and rest . Oswestry axial pain score at 8. Interventional procedures include R TFESI L5-S1 x1 Medications include Robaxin, Ibu, Cannabis use REVIEW OF ORGAN SYSTEMS: CONSTITUTIONAL: No fevers or chills. No recent weight loss. NEUROLOGICAL: + numbness and tingling along the distal extremities. No seizure disorders or headaches. MUSCULOSKELETAL: + pain PSYCHIATRIC: Denies current depression or suicidal thoughts. Physical Examinations : Constitutional : Cooperative , not in acute distress . Neurologic : Cranial nerve II to XII intact. No focal neurological deficits. Psychiatric : alert & oriented x 3. Matching mood & appropriate affect. Judgment & insight intact. Musculoskeletal : Cervical Spine Motor strength in the deltoid and biceps: Normal right side. Normal Left side Motor strength biceps and the wrist extensors: Normal right side . Normal left side Motor strength in the triceps muscle: Normal right side. Normal left side Deep tendon reflexes: Normal at the biceps. Normal at Brachioradialis. Normal at triceps Vertebral body tenderness to deep palpation over Cervical facet loading test: positive bilaterally Spurling test: positive bilaterally Neck distraction test: positive bilaterally Yanira sign: positive bilaterally Lumbar spine Motor strength lower extremities ,thigh and legs 5/5 Right side , 5/5 Left side Deep tendon reflexes : Normal Knee Jerk. Normal Ankle Jerk Vertebral body tenderness over L5 Elliott Test positive R L5-S1 Lumbar facet Loading Test: positive Right / positive Left L5-S1 Range of motion of the lumbar spine Flexion 30 degrees, extension 10 degrees Straight Leg Raise test: Left/ Right positive at degrees Elan test: positive right / positive left. Severe tenderness over the Sacroiliac joint on the Right / Left sides Gaenslen test: positive bilaterally Seated flexion test: positive bilaterally. Sacral spine : Severe tenderness over the Sacroiliac joint: right side / left side Range of motion: Flexion of the lumbar spine <60 degrees Range of motion: Extension of the lumbar spine <20 degrees Gaenslen's Test positive Elan test: positive right side / left side Thigh Thrust Test Sacral Thrust Test Imaging: MRI non contrast of the lumbar spine from 07/11/23 reviewed Assessment/ Plan : Lumbar DDD Recommendation of BL MBB L5-S1 #1. Risks, benefits of procedure discussed and patient verbalized understanding. Admits to anti- coagulant use or medical history of diabetes. Protocol for discontinuation/ continuation of medications dorian procedure discussed. Minimal anesthesia including Fentanyl and Versed if clinically indicated. All questions answered. I have spent greater than 30 minutes on patient care today. Dr Calvo was available by phone for the evaluation of this patient. The time was used to review the medical records including relevant urine studies and Prescription history (MAPs), review of the available imaging, evaluation and examination of the patient, coordination of care with the medical staff and if applicable referring physicians, as well as creation of the medical record PQRS Narrative: Smoking Status Never smoker Home Medications: Ambulatory Orders Sertraline [Zoloft] 100 mg PO HS 05/20/22 Azelastine HCl [Astepro] 2 spray NASAL BID 03/17/23 Fluticasone Nasal [place] [Flonase Nasal [place]] 1 spray EA NOSTRIL DAILY 03/17/23 Gabapentin [Neurontin] 100 mg PO BID 03/17/23 Lisdexamfetamine Dimesylate [Vyvanse] 50 mg PO QAM 03/17/23 Metoprolol Succinate [Metoprolol Succinate ER] 25 mg PO HS 03/17/23 Montelukast [Singulair] 10 mg PO HS 03/17/23 Topiramate [Topamax] 50 mg PO BID 03/17/23 Ubrogepant [Ubrelvy] 100 mg PO BID PRN 03/17/23 methocarbamoL [Robaxin] 500 mg PO BID PRN 03/17/23 Controlled Substance Measures - Controlled Substance Measures Is patient prescribed a controlled substance at discharge?: No
== END ==
LOC: PNWHC3 09:48
PROVIDERS: ATTEND Specialist
DX: M51.36 Other intervertebral disc degeneration, lumbar region (principal); Z88.0 Allergy status to penicillin; Z88.2 Allergy status to sulfonamides
CPT/HCPCS: 99211

== ENCOUNTER → 2023-10-28 | Outpatient (CLI) | payer OTHER ==
--- NOTE | 2023-11-19 11:01 | XR ---
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 A nose ring i s present. Some dental amalgam is present. Cervical spine: No suspicious lytic lesion. Alignment is maintained. No prevertebral soft tissue swel ling. Thoracic spine: 12 rib-bearing thoracic vertebral bodies. All pedicles are visualized. Vertebral body heights are preserved and alignment is maintained. No suspicious lytic lesion. Lumbar spine: There is a transitional lumbosacral segment with right L6 hemisacralization. Vertebral body heights are preserved. There may be mild disc space narrowing at L6-S1. There is mild facet arth ropathy lower lumbar spine. No suspicious lytic lesion. Pelvis: Tubal ligation clips in both present within the left side of the pelvis. No suspicious lytic lesion. Hip joint space is maintained. Femurs: No suspicious lytic lesion or endosteal scalloping. Chest: Heart normal size. Lungs and pleural spaces are clear. No discrete suspicious lytic lesion of the ribs or clavicles is identified. Some cortical thickening of the mid left clavicular shaft may re flect sequela of an old healed fracture. Clinically correlate. Humeri: No suspicious lytic lesion or endosteal scalloping. IMPRESSION: 1. No suspicious lytic lesion or endosteal scalloping to suggest myelomatous involvement. 2. Some cortical thickening along the left mid clavicular shaft may reflect sequela of an old healed fracture deformity. 3. Incidental transitional lumbosacral segment with right L6 hemisacralization.
== END ==
LOC: RADXRMAIN 15:40
PROVIDERS: ATTEND Internal Medicine
DX: D47.2 Monoclonal gammopathy (principal)
CPT/HCPCS: 77075

== ENCOUNTER 2023-10-31 06:52 | Day surgery (SDC) | payer OTHER ==
[2023-10-31] MEDS ORDERED: LACTATED RINGERS 1,000 ML BAG ONE (07:26)
[2023-10-31] MEDS ORDERED: fentaNYL (PF) 50 MCG/ML 2 ML AMP ONE (08:19)
[2023-10-31] MEDS ORDERED: ROPIVACAINE 5MG/ML 20ML VIAL ONE (08:19)
[2023-10-31] MEDS ORDERED: MIDAZOLAM 2 MG/2 ML VIAL ONE (08:19)
--- NOTE | 2023-12-09 18:20 | FL ---
EXAMINATION TYPE: FL guided pain mgmt statistic DATE OF EXAM: 11/11/2023 11:50 AM COMPARISON: Pre Operative Images if available both CT/MRI or plain film CLINICAL INDICATION: Female, 33 years old with history of CHINEDU LUMBAR FB; TECHNIQUE: FL guided pain mgmt statistic, multiple fluoroscopic images provided for procedure. Total fluoroscopy time: 6 seconds Total submitted images to PACS: 4 DAP: [id number] mGym2 Gycm2 uGym2 cGycm2 or equivalent. FINDINGS: Fluoroscopic images during injection for pain management demonstrate multilevel degeneration changes throughout the spine. No evidence for fracture. No acute process identified. IMPRESSION: 1. No evidence for intraoperative complication. 2. Please see the operative/procedural note for further details. [facility], , 12/09/2023 6:17 PM
== END 2023-10-31 09:15 ==
LOC: ORPAIN 06:52
PROVIDERS: ATTEND Specialist
DX: M47.816 Spondylosis without myelopathy or radiculopathy, lumbar region (principal); Z88.0 Allergy status to penicillin; Z88.2 Allergy status to sulfonamides; Z79.899 Other long term (current) drug therapy

== ENCOUNTER → 2023-11-20 | Outpatient (CLI) | payer OTHER ==
[2023-11-20 10:34] VITALS: BP 100/66; PULSE 56; RESP 16; TEMP 97.3
--- NOTE | 2023-11-20 14:14 | P.PAINPG ---
PQRS Measure Charge Sheet Comment: HISTORY OF PRESENT ILLNESS: A 32 yr old female presents today w severe and chronic LBP x 1 yr secondary to DDD, spondylosis and facet arthropathy without myelopathy for evaluation s/p BL MBB L5-S1 #1. Pt states she experienced 90 % pain relief x 1 hr s/p procedure. Pt states pain level is provoked at 9 /10 in intensity, intermittent, localized in the R lumbar spine, predominantly axial, achy in character w occasional shooting pain L & R of midline. Pain is provoked by standing/ walking for periods > 30 min. Pain is alleviated by injections, physician guided home exercises/ stretches daily since July 2023, medications, heat, repositioning and rest . Interventional procedures include R TFESI L5-S1 x1 Medications include Robaxin, Ibu, Cannabis use REVIEW OF ORGAN SYSTEMS: CONSTITUTIONAL: No fevers or chills. No recent weight loss. NEUROLOGICAL: + numbness and tingling along the distal extremities. No seizure disorders or headaches. MUSCULOSKELETAL: + pain PSYCHIATRIC: Denies current depression or suicidal thoughts. Physical Examinations : Constitutional : Cooperative , not in acute distress . Neurologic : Cranial nerve II to XII intact. No focal neurological deficits. Psychiatric : alert & oriented x 3. Matching mood & appropriate affect. Judgment & insight intact. Musculoskeletal : Cervical Spine Motor strength in the deltoid and biceps: Normal right side. Normal Left side Motor strength biceps and the wrist extensors: Normal right side . Normal left side Motor strength in the triceps muscle: Normal right side. Normal left side Deep tendon reflexes: Normal at the b iceps. Normal at Brachioradialis. Normal at triceps Vertebral body tenderness to deep palpation over Cervical facet loading test: positive bilaterally Spurling test: positive bilaterally Neck distraction test: positive bilaterally Yanira sign: positive bilaterally Lumbar spine Motor strength lower extremities ,thigh and legs 5/5 Right side , 5/5 Left side Deep tendon reflexes : Normal Knee Jerk. Normal Ankle Jerk Vertebral body tenderness over L5 Elliott Test positive R L5-S1 Lumbar facet Loading Test: positive Right / positive Left L5-S1 Range of motion of the lumbar spine Flexion 30 degrees, extension 10 degrees Straight Leg Raise test: Left/ Right positive at degrees Elan test: positive right / positive left. Severe tenderness over the Sacroiliac joint on the Right / Left sides Gaenslen test: positive bilaterally Seated flexion test: positive bilaterally. Sacral spine : Severe tenderness over the Sacroiliac joint: right side / left side Range of motion: Flexion of the lumbar spine <60 degrees Range of motion: Extension of the lumbar spine <20 degrees Gaenslen's Test positive Elan test: positive right side / left side Thigh Thrust Test Sacral Thrust Test Imaging: MRI non contrast of the lumbar spine from 07/11/23 reviewed Assessment/ Plan : Lumbar DDD Recommendation of CATE MBB L5-S1 #2. Risks, benefits of procedure discussed and patient verbalized understanding. Admits to anti- coagulant use or medical history of diabetes. Protocol for discontinuation/ continuation of medications dorian procedure discussed. Minimal anesthesia including Fentanyl and Versed if clinically indicated. All questions answered. I have spent greater than 30 minutes on patient care today. Dr Calvo was available by phone for the evaluation of this patient. The time was used to review the medical records including relevant urine studies and Prescription history (MAPs), review of the available imaging, evaluation and examination of the patient, coordination of care with the medical staff and if applicable referring physicians, as well as creation of the medical record PQRS Narrative: Smoking Status Never smoker Home Medications: Ambulatory Orders Sertraline [Zoloft] 100 mg PO HS 05/20/22 Azelastine HCl [Astepro] 2 spray NASAL BID 03/17/23 Fluticasone Nasal [place] [Flonase Nasal [place]] 1 spray EA NOSTRIL DAILY 03/17/23 Gabapentin [Neurontin] 100 mg PO BID 03/17/23 Lisdexamfetamine Dimesylate [Vyvanse] 50 mg PO QAM 03/17/23 Metoprolol Succinate [Metoprolol Succinate ER] 25 mg PO HS 03/17/23 Montelukast [Singulair] 10 mg PO HS 03/17/23 Topiramate [Topamax] 50 mg PO BID 03/17/23 Ubrogepant [Ubrelvy] 100 mg PO BID PRN 03/17/23 methocarbamoL [Robaxin] 500 mg PO BID PRN 03/17/23 Controlled Substance Measures - Controlled Substance Measures Is patient prescribed a controlled substance at discharge?: No
== END ==
LOC: PNWHC3 09:39
PROVIDERS: ATTEND Specialist
DX: M54.16 Radiculopathy, lumbar region
CPT/HCPCS: 99211

== ENCOUNTER 2023-12-09 06:31 | Day surgery (SDC) | payer OTHER ==
[2023-12-05 12:37] VITALS: BMI 21.9
[2023-12-09] MEDS: IV FLUID CONTINUATION 1,000 ML IV ONE ×2 (06:55→07:50)
[2023-12-09 07:04] VITALS: RESP 16; TEMP 97.1
[2023-12-09] MEDS: LACTATED RINGERS 1,000 ML BAG IV STA (07:05)
[2023-12-09] MEDS ORDERED: ROPIVACAINE 5MG/ML 20ML VIAL ONE (07:35)
[2023-12-09] MEDS ORDERED: MIDAZOLAM 2 MG/2 ML VIAL ONE (07:35)
[2023-12-09] MEDS ORDERED: LACTATED RINGERS 1,000 ML IV SCH (07:45)
--- NOTE | 2023-12-09 07:49 | P.PCN ---
Date of Procedure: 12/09/23 Description of Procedure: Pre- and Post-operative Diagnosis: Lumbar facet arthropathy, and lumbar spondylosis without myelopathy. Procedure: #2 diagnostic dorsal ramus block at Lumbar 5/ sacral ala levels (total 2 levels) Surgeon: Yuki Epperson Anesthesia: Local: 1% Lidocaine, IV sedation : Versed 2 mg Sedation supervision timings: [id number]. Complications: None EBL: None Specimen removed: None Fluoroscopic image: Saved to patient electronic medical records. Indications for Procedure: The patient is well known to pain clinic for his chronic low back pain management. The lumbar facet loading test was positive with a clinical diagnosis of lumbar facet arthropathy. Failed with conservative therapy. Patient had more than 80% pain relief for [ ] day with previous procedure. So Came here for interventional help for repeat procedure . Procedure and Findings: The patient was seen and examined. The written informed consent was obtained after explaining the risks, benefits and alternatives of the procedure to the patient. The patient was brought to the procedure room and was placed in the prone position on the operating table table. A pillow was placed under the abdomen to reduce lumbar lordosis. Standard anesthesia monitoring was done through out the procedure. The skin preparation was done with ChloraPrep, and draping was done in usual sterile fashion. Sterile technique was observed throughout the procedure. Under fluoroscopic guidance, right the Lumbar 5 and Sacral ala levels were identified in the AP view. For lumbar L5 levels the targeting area of superior articular process, and close to the most medial and superior aspect of transverse process identified, marked. 1ml of 1% Lidocaine was used with a 25 gauge needle to achieve adequate local anesthesia of the skin and subcutaneous tissue at each level. A 22 gauge 3.5 inch spinal needle was placed and advanced targeting area which was close to the most medial and superior aspect of the transverse process. For Lumbar 5/ sacral ala level, fluoroscope was used in the anteroposterior view, and the needle tip was placed at the superior and most medial part of sacral ala close to the superior articular process. A bony contact was obtained and needle tip position was confirmed at anteroposterior view. No paresthesia was noted. A negative aspiration was confirmed. 1 ml solution per level was injected, the block solution containing 4 mL of 0.5% ropivacaine . The needles were removed intact. Entire procedure repeated on the left side. Lumbar area was cleaned and bandages were applied. Disposition : The patient tolerated the procedure very well. The patient was transferred to the recovery room and remained stable until discharged home. The patient was given detailed discharge instructions for infection, bleeding, and increased pain at the injection site, and was advised to seek immediate medical attention should significant side effects develop. The patient will be scheduled with Pain Clinic within 2-4 weeks for bilateral L5-S1 medial branch RF TC if the procedure helpful.
[2023-12-09 08:06] VITALS: PULSE 65
[2023-12-09 08:18] VITALS: BP 95/64
--- NOTE | 2023-12-09 18:13 | FL ---
EXAMINATION TYPE: FL guided pain mgmt statistic DATE OF EXAM: 12/09/2023 8:00 AM COMPARISON: Pre Operative Images if available both CT/MRI or plain film CLINICAL INDICATION: Female, 33 years old with history of M47.816 LUMBAR SPONDYLOSIS; TECHNIQUE: FL guided pain mgmt statistic, multiple fluoroscopic images provided for procedure. Total fluoroscopy time: 6.4 seconds Total submitted images to PACS: 3 DAP: [id number] mGym2 Gycm2 uGym2 cGycm2 or equivalent. FINDINGS: Fluoroscopic images during injection for pain management demonstrate multilevel degeneration changes throughout the spine. No evidence for fracture. No acute process identified. IMPRESSION: 1. No evidence for intraoperative complication. 2. Please see the operative/procedural note for further details. [facility], , 12/09/2023 6:11 PM
== END 2023-12-09 08:32 | disposition home or self-care (01) ==
LOC: ORPAIN 06:31
DX: M47.816 Spondylosis without myelopathy or radiculopathy, lumbar region
CPT/HCPCS: 99152

== ENCOUNTER → 2023-12-22 | Outpatient (CLI) | payer OTHER ==
[2023-12-22 10:00] VITALS: BP 106/69; PULSE 59; RESP 20; TEMP 98.7
--- NOTE | 2023-12-22 14:50 | P.PAINPG ---
PQRS Measure Charge Sheet Comment: HISTORY OF PRESENT ILLNESS: A 32 yr old female presents today w severe and chronic LBP x 1 yr secondary to radiculopathy, spondylosis and facet arthropathy without myelopathy for evaluation s/p BL MBB L5-S1 #2. Pt states she experienced 95 % pain relief x 1 wk s/p procedure. Pt states pain level is provoked at 6 /10 in intensity, intermittent, localized in the R lumbar spine, predominantly axial, achy in character w occasional shooting pain L & R of midline. Pain is provoked by standing/ walking for periods > 30 min. Pain is alleviated by injections, physician guided home exercises/ stretches daily since July 2023, medications, heat, repositioning and rest . Interventional procedures include R TFESI L5-S1 x1, BL MBB L5-S1 x2 Medications include Robaxin, Ibu, Cannabis use REVIEW OF ORGAN SYSTEMS: CONSTITUTIONAL: No fevers or chills. No recent weight loss. NEUROLOGICAL: + numbness and tingling along the distal extremities. No seizure disorders or headaches. MUSCULOSKELETAL: + pain PSYCHIATRIC: Denies current depression or suicidal thoughts. Physical Examinations : Constitutional : Cooperative , not in acute distress . Neurologic : Cranial nerve II to XII intact. No focal neurological deficits. Psychiatric : alert & oriented x 3. Matching mood & appropriate affect. Judgment & insight intact. Musculoskeletal : Cervical Spine Motor strength in the deltoid and biceps: Normal right side. Normal Left side Motor strength biceps and the wrist extensors: Normal right side . Normal left side Motor strength in the triceps muscle: Normal right side. Normal left side Deep tendon reflexes: Normal at the biceps. Normal at Brachioradialis. Normal at triceps Vertebral body tenderness to deep palpation over Cervical facet loading test: positive bilaterally Spurling test: positive bilaterally Neck distraction test: positive bilaterally Yanira sign: positive bilaterally Lumbar spine Motor strength lower extremities ,thigh and legs 5/5 Right side , 5/5 Left side Deep tendon reflexes : Normal Knee Jerk. Normal Ankle Jerk Vertebral body tenderness over L5 Elliott Test positive R L5-S1 Lumbar facet Loading Test: positive Right / positive Left L5-S1 Range of motion of the lumbar spine Flexion 30 degrees, extension 10 degrees Straight Leg Raise test: Left/ Right positive at degrees Elan test: positive right / positive left. Severe tenderness over the Sacroiliac joint on the Right / Left sides Gaenslen test: positive bilaterally Seated flexion test: positive bilaterally. Sacral spine : Severe tenderness over the Sacroiliac joint: right side / left side Range of motion: Flexion of the lumbar spine <60 degrees Range of motion: Extension of the lumbar spine <20 degrees Gaenslen's Test positive Elan test: positive right side / left side Thigh Thrust Test Sacral Thrust Test Imaging: MRI non contrast of the lumbar spine from 07/11/23 reviewed Assessment/ Plan : Lumbar radiculopathy Recommendation of BL RFA L5-S1. Risks, benefits of procedure discussed and patient verbalized understanding. Admits to anti- coagulant use or medical history of diabetes. Protocol for discontinuation/ continuation of medications dorian procedure discussed. Minimal anesthesia including Fentanyl and Versed if clinically indicated. All questions answered. I have spent greater than 30 minutes on patient care today. Dr Calvo was available by phone for the evaluation of this patient. The time was used to review the medical records including relevant urine studies and Prescription history (MAPs), review of the available imaging, evaluation and examination of the patient, coordination of care with the medical staff and if applicable referring physicians, as well as creation of the medical record PQRS Narrative: Smoking Status Never smoker Hx Alcohol Use (MH) Yes Home Medications: Ambulatory Orders Sertraline [Zoloft] 100 mg PO HS 05/20/22 Azelastine HCl [Astepro] 2 spray NASAL BID 03/17/23 Fluticasone Nasal [place] [Flonase Nasal [place]] 1 spray EA NOSTRIL DAILY 03/17/23 Gabapentin [Neurontin] 100 mg PO BID 03/17/23 Lisdexamfetamine Dimesylate [Vyvanse] 50 mg PO QAM 03/17/23 Metoprolol Succinate [Metoprolol Succinate ER] 25 mg PO HS 03/17/23 Montelukast [Singulair] 10 mg PO HS 03/17/23 Topiramate [Topamax] 50 mg PO BID 03/17/23 Ubrogepant [Ubrelvy] 100 mg PO BID PRN 03/17/23 methocarbamoL [Robaxin] 500 mg PO BID PRN 03/17/23 Controlled Substance Measures - Controlled Substance Measures Is patient prescribed a controlled substance at discharge?: No
== END ==
LOC: PNWHC3 09:39
PROVIDERS: ATTEND Specialist
DX: M47.816 Spondylosis without myelopathy or radiculopathy, lumbar region
CPT/HCPCS: 99211

== ENCOUNTER 2024-01-09 06:29 | Day surgery (SDC) | payer OTHER ==
[2024-01-08 08:36] VITALS: BMI 21.9
[2024-01-09 06:48] VITALS: RESP 16; TEMP 97
[2024-01-09] MEDS: LACTATED RINGERS 1,000 ML IV SCH (06:57)
[2024-01-09] MEDS: LACTATED RINGERS 1,000 ML IV ONE (06:57)
[2024-01-09] MEDS ORDERED: methylPREDNISolone ACETATE 40 MG/ML 1 ML VIAL ONE (07:35)
[2024-01-09] MEDS ORDERED: ROPIVACAINE 5MG/ML 20ML VIAL ONE (07:35)
[2024-01-09] MEDS ORDERED: fentaNYL (PF) 50 MCG/ML 2 ML AMP ONE (07:35)
[2024-01-09] MEDS ORDERED: MIDAZOLAM 2 MG/2 ML VIAL ONE (07:35)
--- NOTE | 2024-01-09 07:55 | P.PCN ---
Date of Procedure: 01/09/24 Procedure(s) Performed: PREOPERATIVE DIAGNOSIS: 1-Lumbar Spondylosis with Facet Arthropathy without myelopathy. POSTOPERATIVE DIAGNOSIS: 1- Lumbar Spondylosis with Facet Arthropathy without myelopathy. PROCEDURES : Bilateral Radiofrequency thermocoagulation, L4 , L5 medial branch, with fluoroscopic guidance (fluoroscopy images in the radiology department) ( to denervate the facet joint at bilateral L5-S1 levels ). ANESTHESIA: Moderate sedation with intravenous versed 2 mg and fentaneyl 100 mcg,(sedation start time 07:35, end time 07:51 ). EBL: Minimal PROCEDURE INDICATION: The patient with low back pain secondary to lumbar facet arthropathy who had more than 50% relief of her pain with previous diagnostic lumbar medial branch block with bupivacaine. PROCEDURE DESCRIPTION / TECHNIQUE: The patient was seen and identified in the preoperative area. Risks, benefits, complications, including but not limited to risk of infection ,bleeding , allergic reactions to the medications and no complete pain releife , and alternatives were discussed with the patient, the patient agreed to proceed with the procedure and signed the consent. IV was started. Vital signs remained stable throughout the procedure. Patient was taken to the OR and time out was completed. The patient was placed in the prone position on the procedure table. The lumber area was prepped and draped in the usual sterile fashion. . Vital signs were closely monitored during the procedure .IV sedation was used during the procedure to decrease patients anxiety. Using AP and then oblique fluoroscopy, the ``eye of the Maximino dog corresponding to the connection between the superior and transverse articular processes of right L4, and L5 were identified, marked, and localized with 1% lidocaine. Subsequently, a 18 [id number] (VENOM ) radiofrequency cannula with a 10-mm active tip was advanced guided by fluoroscopy to each of the``eyes of the Maximino dog at right L4, and L5. Each site then underwent sensory testing at 50 Hz and 0 to 1 volt and motor testing at 2.5 Hz and 0 to 3 volt with local stimulation, but no radicular symptoms down the legs. Thereafter each sites underwent radiofrequency thermocoagulation at 80 degrees celsius for 90 seconds after injecting 0.5 ml of PF Ropivacaine 1ml, then after the thermocoagulation done , 1 ml of the block solution containing Depo-Medrol 20 mg and 2 ml of Ropivacaine 0.5% was injected at the right L4, and L5 , levels after negative aspiration of CSF and blood and with no paresthesias. Cannulas were retracted while injecting lidocaine 1% until the needle is out. The same procedure was repeated at the level of Left L4, and L5 levels. At the end of the procedure, the skin was cleansed and bandages were applied. COMPLICATIONS: No acute complications. DISPOSITION / PLANS: The patient was placed in a supine position and transferred to the recovery area in a stable condition for observation and was discharged from the recovery room after meeting discharge criteria. Home discharge instructions given to the patient by the staff. The patient was reexamined prior to discharge. The patient will schedule a follow up in the clinic in 2-4 weeks.
[2024-01-09] MEDS: IV FLUID CONTINUATION 700 ML IV ONE (07:58)
[2024-01-09 08:26] VITALS: BP 98/67; PULSE 67
--- NOTE | 2024-01-09 08:39 | FL ---
EXAMINATION TYPE: FL guided pain mgmt statistic DATE OF EXAM: 01/09/2024 7:55 AM COMPARISON: Pre Operative Images if available both CT/MRI or plain film CLINICAL INDICATION: Female, 33 years old with history of Rik Lumbar Rad Freq; TECHNIQUE: FL guided pain mgmt statistic, multiple fluoroscopic images provided for procedure. Total fluoroscopy time: 11 seconds Total submitted images to PACS: 7 DAP: 0.06712 mGym2 Gycm2 uGym2 cGycm2 or equivalent. FINDINGS: Fluoroscopic images during injection for pain management demonstrate multilevel degeneration changes throughout the spine. No evidence for fracture. No acute process identified. IMPRESSION: 1. No evidence for intraoperative complication. 2. Please see the operative/procedural note for further details. [facility], , 01/09/2024 8:37 AM
== END 2024-01-09 08:46 | disposition home or self-care (01) ==
LOC: ORPAIN 06:29
PROVIDERS: ATTEND Specialist
DX: M47.816 Spondylosis without myelopathy or radiculopathy, lumbar region (principal); Z88.0 Allergy status to penicillin; Z88.2 Allergy status to sulfonamides
CPT/HCPCS: 64635; 64636 ×2; J2250; J3010; J2795; J1010; 99152

== ENCOUNTER → 2024-01-26 | Outpatient (CLI) | payer OTHER ==
[2024-01-26 09:51] VITALS: BP 95/64; PULSE 62; RESP 16
--- NOTE | 2024-01-26 15:06 | P.PAINPG ---
Objective - Vital Signs Vital signs: Intake & Output 01/25/24 01/26/24 01/26/24 18:59 06:59 18:59 Weight 54.431 kg PQRS Measure Charge Sheet Comment: HISTORY OF PRESENT ILLNESS: A 32 yr old female presents today w severe and chronic LBP x 1 yr secondary to radiculopathy, spondylosis and facet arthropathy without myelopathy for evaluation s/p BL RFA L5-S1. Pt states she experienced >60 % pain relief s/p procedure. Pt states pain level is provoked at 4 /10 in intensity, intermittent, localized in the R lumbar spine, predominantly axial, achy in character without shooting pain. Pain is provoked by standing/ walking for periods > 30 min. Pain is alleviated by injections, physician guided home exercises/ stretches daily since July 2023, medications, heat, repositioning and rest . Interventional procedures include R TFESI L5-S1 x1, BL RFA L5-S1 (Dec 2023) Medications include Robaxin, Ibu, Cannabis use REVIEW OF ORGAN SYSTEMS: CONSTITUTIONAL: No fevers or chills. No recent weight loss. NEUROLOGICAL: + numbness and tingling along the distal extremities. No seizure disorders or headaches. MUSCULOSKELETAL: + pain PSYCHIATRIC: Denies current depression or suicidal thoughts. Physical Examinations : Constitutional : Cooperative , not in acute distress . Neurologic : Cranial nerve II to XII intact. No focal neurological deficits. Psychiatric : alert & oriented x 3. Matching mood & appropriate affect. Judgment & insight intact. Musculoskeletal : Cervical Spine Motor strength in the deltoid and biceps: Normal right side. Normal Left side Motor strength biceps and the wrist extensors: Normal right side . Normal left side Motor strength in the triceps muscle: Normal right side. Normal left side Deep tendon reflexes: Normal at the b iceps. Normal at Brachioradialis. Normal at triceps Vertebral body tenderness to deep palpation over Cervical facet loading test: positive bilaterally Spurling test: positive bilaterally Neck distraction test: positive bilaterally Yanira sign: positive bilaterally Lumbar spine Motor strength lower extremities ,thigh and legs 5/5 Right side , 5/5 Left side Deep tendon reflexes : Normal Knee Jerk. Normal Ankle Jerk Vertebral body tenderness over L5 Elliott Test positive R L5-S1 Lumbar facet Loading Test: positive Right / positive Left L5-S1 Range of motion of the lumbar spine Flexion 30 degrees, extension 10 degrees Straight Leg Raise test: Left/ Right positive at degrees Elan test: positive right / positive left. Severe tenderness over the Sacroiliac joint on the Right / Left sides Gaenslen test: positive bilaterally Seated flexion test: positive bilaterally. Sacral spine : Severe tenderness over the Sacroiliac joint: right side / left side Range of motion: Flexion of the lumbar spine <60 degrees Range of motion: Extension of the lumbar spine <20 degrees Gaenslen's Test positive Elan test: positive right side / left side Thigh Thrust Test Sacral Thrust Test Imaging: MRI non contrast of the lumbar spine from 07/11/23 reviewed Assessment/ Plan : Lumbar radiculopathy Will follow up w Dr Mckinnon to explore additional treatment options. All questions answered. I have spent greater than 30 minutes on patient care today. Dr Calvo was available by phone for the evaluation of this patient. The time was used to review the medical records including relevant urine studies and Prescription history (MAPs), review of the available imaging, evaluation and examination of the patient, coordination of care with the medical staff and if applicable referring physicians, as well as creation of the medical record PQRS Narrative: Smoking Status Never smoker Narcotic Agreement Date Signed 12/22/23 Hx Alcohol Use (MH) Yes Home Medications: Ambulatory Orders Sertraline [Zoloft] 100 mg PO HS 05/20/22 Azelastine HCl [Astepro] 2 spray NASAL BID 03/17/23 Fluticasone Nasal [place] [Flonase Nasal [place]] 1 spray EA NOSTRIL DAILY 03/17/23 Gabapentin [Neurontin] 100 mg PO BID 03/17/23 Lisdexamfetamine Dimesylate [Vyvanse] 50 mg PO QAM 03/17/23 Metoprolol Succinate [Metoprolol Succinate ER] 25 mg PO HS 03/17/23 Montelukast [Singulair] 10 mg PO HS 03/17/23 Topiramate [Topamax] 50 mg PO BID 03/17/23 Ubrogepant [Ubrelvy] 100 mg PO BID PRN 03/17/23 methocarbamoL [Robaxin] 500 mg PO BID PRN 03/17/23 Controlled Substance Measures - Controlled Substance Measures Is patient prescribed a controlled substance at discharge?: No
== END ==
LOC: PNWHC3 09:36
PROVIDERS: ATTEND Specialist
DX: M47.26 Other spondylosis with radiculopathy, lumbar region (principal); Z88.0 Allergy status to penicillin; Z88.2 Allergy status to sulfonamides
CPT/HCPCS: 99211